=== PATIENT | male | born 1950 | race Two or more races ===

== ENCOUNTER 2019-01-20 15:02 | Inpatient (IN) | payer MEDICARE, OTHER ==
--- NOTE | 2019-01-20 15:12 | PDOC ---
Rapid Medical Evaluation Chief Complaint: Vomiting/Diarrhea Time Seen by Provider: 01/20/19 15:06 Medical Evaluation: Allergies Allergy/AdvReac Type Severity Reaction Status Date / Time No Known Allergies Allergy Verified 01/20/19 15:10 Vital Signs Temp Pulse Resp BP Pulse Ox 98.4 F 89 16 106/59 L 96 01/20/19 15:07 01/20/19 15:07 01/20/19 15:07 01/20/19 15:07 01/20/19 15:07 01/20/19 15:11 I have performed a brief in-person evaluation of this patient. The patient presents with a chief complaint of:abd pain w/ n/v/d x 1 week. H/o HTN, HLD, DM Pertinent physical exam findings:stable and in NAD I have ordered the following:labs The patient will proceed to the ED for further evaluation. Discharge Disposition - Diagnosis Abdominal pain Qualifiers: Abdominal location: unspecified location Qualified Code(s): R10.9 - Unspecified abdominal pain - Discharge Dispostion Condition at time of disposition: Stable - Referrals - Patient Instructions - Post Discharge Activity
[2019-01-20] MEDS ORDERED: LACTATED RINGERS SOLUTION 1000 ML INFUS.BAG IV ONE (15:44)
--- NOTE | 2019-01-20 16:31 | PDOC ---
History of Present Illness - General Chief Complaint: Vomiting/Diarrhea Stated Complaint: VOMITING/ DIRARRHEA Time Seen by Provider: 01/20/19 15:06 History Source: Patient Exam Limitations: No Limitations (refused healthcare interpreter) - History of Present Illness Initial Comments: 01/20/19 16:39 68M with pmh of HTN, HLD, IDDM, depression, asthma, COPD, ?CVA(1980) presenting to [facility] after being referred by his [facility] for diffuse epigastric abd pain similiar to his pain from 12/29/18 in which he was seen at [facility]. On 12/29/18, had CT A/P which showed a possible cecal mass. Complaint of 7d of 9 of 10 severity, diffuse epigastric abd pain, w/a 3d of diarrhea and 10x episodes of NBNB emesis. Endorses appetite but has nausea and/or diarrhea within 30mins after eating a meal. Fatigue [id number]. Last BM was the AM prior to presentation. Has been drinking small glasses of water. Has not eaten anything abnormal. No sick contacts or recent travel. Endorse brief fever 2d prior, 2episodes of melena one month prior, lost 30lbs in the last year with diet and exercise. Denies hematochezia. Never had colonoscopy, has one scheduled with Dr Sanchez on 01/28/19. Did not get his outpt CEA level. Lives alone , has siblings that live nearby. Severity: severe Past History - Travel Traveled outside of the country in the last 30 days: No Close contact w/someone who was outside of country & ill: No - Past Medical History Allergies/Adverse Reactions: Allergies Allergy/AdvReac Type Severity Reaction Status Date / Time No Known Allergies Allergy Verified 01/20/19 15:10 Home Medications: Ambulatory Orders Albuterol 0.083% Nebulizer Lissa [Ventolin 0.083% Nebulizer Soln -] 2 puff IH Q6H 01/20/19 Amlodipine Besylate 10 mg PO DAILY 01/20/19 Citalopram Hydrobromide [Citalopram HBr] 20 mg PO DAILY 01/20/19 Cyanocobalamin [Vitamin B12 -] 1,000 mcg PO DAILY 01/20/19 Fluticasone Prop 0.05% Nasal [Flonase -] 50 spray NS DAILY 01/20/19 Fluticasone/Salmeterol [Advair Hfa 230-21 Mcg Inhaler] 2 inh PO BID 01/20/19 Hydrochlorothiazide 25 mg PO DAILY 01/20/19 Insulin Detemir [Levemir Flextouch] 80 unit SQ HS 01/20/19 Lisinopril [Prinivil -] 40 mg PO DAILY 01/20/19 Loratadine [Claritin] 10 mg PO DAILY 01/20/19 Montelukast Sodium [Singulair] 10 mg PO HS 01/20/19 Quetiapine Fumarate [Seroquel -] 50 mg PO HS 01/20/19 Rosuvastatin Calcium [Crestor] 10 mg PO DAILY 01/20/19 Zolpidem Tartrate [Ambien] 10 mg PO HS 01/20/19 Acetaminophen 2 tab PO BID PRN 01/21/19 Aspirin [Aspirin EC] 81 mg PO DAILY 01/21/19 Docusate Sodium [Colace] 100 mg PO BID 01/21/19 Ketotifen Fumarate 1 drop OP BID 01/21/19 Multivit-Min/Iron/Folic Acid/K [Multi-Day Plus Minerals Tablet] 1 tab PO DAILY 01/21/19 Omeprazole Magnesium [Prilosec Otc] 1 tab PO DAILY 01/21/19 Tiotropium [place] [Spiriva] 1 cap IH DAILY 01/21/19 metFORMIN HCL [Metformin HCl] 1,000 mg PO BIDAC 01/21/19 Cancer: No Cardiac Disorders: No CVA: Yes (1980) COPD: Yes Diabetes: Yes HTN: Yes Hypercholesterolemia: Yes Psychiatric Problems: Yes (depression) - Surgical History Abdominal Surgery: No - Family Disease History Family Disease History: Diabetes: Father, Heart Disease: Mother - Immunization History Immunization Up to Date: No - Suicide/Smoking/Psychosocial Hx Smoking Status: Yes (smoked 55ys(~0.5- 1ppd)) Smoking History: Current every day smoker Have you smoked in the past 12 months: Yes Number of Cigarettes Smoked Daily: 10 Information on smoking cessation initiated: No Hx Alcohol Use: Yes (former heavy drinker, last drink 40ys prior) Drug/Substance Use Hx: Yes (former cocaine, crack. No IVDU) Review of Systems - Review of Systems Able to Perform ROS?: Yes Is the patient limited Trinidadian proficient: No Constitutional: Yes: Fever, Malaise HEENTM: No: Recent change in vision, Double Vision, Difficulty Swallowing Respiratory: No: Cough, Shortness of Breath, Wheezing, Productive cough Cardiac (ROS): No: Chest Pain, Palpitations ABD/GI: Yes: Abdominal Distended, Diarrhea, Nausea, Vomiting. No: Constipated : No: Burning, Dysuria, Frequency Psychiatric: Yes: Depression *Physical Exam - Vital Signs Last Vital Signs Temp Pulse Resp BP Pulse Ox 98.4 F 89 16 106/59 L 96 01/20/19 15:01/20/19 15:01/20/19 15:01/20/19 15:01/20/19 15:07 - Physical Exam General Appearance: Yes: Nourished, Mild Distress, Obese HEENT: negative: Pale Conjunctivae, Scleral Icterus (R), Scleral Icterus (L) Neck: positive: Supple. negative: Tender, Trachea midline Respiratory/Chest: positive: Lungs Clear, Normal Breath Sounds. negative: Chest Tender, Respiratory Distress, Accessory Muscle Use, Labored Respiration, Crackles, Rales, Wheezing Cardiovascular: positive: Regular Rate, S1, S2. negative: Tachycardia Gastrointestinal/Abdominal: positive: Normal Bowel Sounds, Soft, Distended, Tenderness (TTP of epigastrium), Other (tympanic to percussion to upper quadrants). negative: Guarding, Rebound Extremity: positive: Normal Capillary Refill. 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 RLQ LAD. Free fluid in RUQ and Lower Pelvis - patient expressing desire to leave AMA due to desire to pay rent on 01/21; severity of condition was explained and he agreed to stay - Surgery(Dr Salinas) consulted -- will evaluate patient *DC/Admit/Observation/Transfer Diagnosis at time of Disposition: Abdominal pain Qualifiers: Abdominal location: unspecified location Qualified Code(s): R10.9 - Unspecified abdominal pain - Discharge Dispostion Disposition: HOME Condition at time of disposition: Improved - Referrals - Patient Instructions - Post Discharge Activity
[2019-01-20] MEDS ORDERED: ACETAMINOPHEN 1000 MG/100 ML VIAL (NON FORMULARY) IVPB ONE (16:38)
[2019-01-20] MEDS ORDERED: ONDANSETRON 4 MG/2 ML VIAL IVPUSH ONE (16:46)
[2019-01-20] MEDS ORDERED: ACETAMINOPHEN INJECTION 100 ML IVPB ONE (17:04)
[2019-01-20] MEDS ORDERED: ONDANSETRON 4 MG/2 ML VIAL ONE (17:04)
--- NOTE | 2019-01-20 17:10 | PDOC ---
Documentation entered by Blair Mcclellan SCRIBE, acting as scribe for Alma Medina MD. Alma Medina MD: This documentation has been prepared by the Eleuterio huffman Joel, SCRIBE, under my direction and personally reviewed by me in its entirety. I confirm that the documentation accurately reflects all work, treatment, procedures, and medical decision making performed by me. Attending Attestation - Resident Resident Name: John Whitt - ED Attending Attestation I have performed the following: I have examined & evaluated the patient, The case was reviewed & discussed with the resident, I agree w/resident's findings & plan - HPI HPI: 01/20/19 16:31 The patient is a 68 year old male with a significant PMH of HTN, IDDM, COPD, asthma, and hyperlipidemia who presents to the emergency department for evaluation of epigastric abdominal pain for 1 week with nausea, vomiting, and non-bloody diarrhea. The patient states his epigastric pain is aggravated by eating, which he describes as a diffuse sensation that is 9/10 in severity. He reports multiple episodes of vomiting and non-bloody diarrhea over the past week. He reports he has had low appetite and difficulty keeping anything down. He states his last BM was this morning. He reports having an appointment for colonoscopy on 01/28/[address] Sanchez. Of note, old records show the patient had an abdomen/pelvis CT w/o contrast on 12/29/2018 which was suspicious for a cecal mass. Denies fever, chills, chest pain, SOB, palpitation, dizziness, weakness, bladder problems, leg swelling, No sick contacts or travel. No new changes in medications. Allergies: None Past Medical History: as noted above. Social history: Lives with family. No tobacco, ETOH or drug use. Surgical history: None reported. Meds: as documented in EMR PMD: Dr. Lux 01/20/19 16:36 01/20/19 17:53 - Physicial Exam PE: 01/20/19 17:54 Agree with the resident's HPI and PE as documented in the electronic medical record. NAD, well appearing, EOMI, PERRL, MMM, nl conjunctiva, anicteric; neck supple. lungs clear, RRR, abdomen soft protuberant, distended, periumbilical/epigastric TTP, +guarding. Back nontender. SAM x4, no focal neuro deficits. No peripheral edema. normal color for ethnicity, WWP. 01/20/19 22:15 - Medical Decision Making 01/20/19 17:54 See HPI for details. Prior notes reviewed, including admissions, discharges and consultations. Vital signs reviewed, wnl. Vital Signs Temp Pulse Resp BP Pulse Ox 98.4 F 89 16 106/59 L 96 01/20/19 15:07 01/20/19 15:07 01/20/19 15:07 01/20/19 15:07 01/20/19 15:07 DDx abdominal pain: Renal colic, biliary colic, metabolic/electrolyte derangements. GERD, PUD, esophageal spasm, pancreatitis, hepatitis, constipation , colitis, gastroenteritis, cholecystitis, UTI, pyelonephritis, ileus, SBO, medication side effect, hernia, appendicitis, diverticulitis, mesenteric ischemia. msk strain, mesenteric adenitis, psoas abscess. mass, perforation, laboratory results and imaging reviewed, basic labs and lytes wnl, notable for + leukocytosis of 12K and Cr 1.9, no prior LFTs/lipase_normal UA_nitrites, could be infectious, but has been having diarrhea. no urinary sx however, f/u cultures EKG normal sinus rhythm at 58 bpm, no interval abnormalities, narrow QRS, ST and T wave segments and morphology normal. Nonspecific T wave abnormalities ED course -interventions: analgesia, IVF, PO contrast -CT a/p to eval for intra abdominal pathology with known mass and current pain and sx. PO contrast only, no IV given GFR 35 and borderline, risk of nephrotoxicity. - s/o pending CT results, ultimate dispo anticipate admission for cecal mass/abdominal pain and difficulty paul PO/pain control. 01/20/19 17:58 01/20/19 22:15
[2019-01-20 17:30] LABS: BASO % 0.5 % (0-2.0); HEMATOCRIT 46.2 % (35.4-49); HEMOGLOBIN 15.5 GM/dL (11.7-16.9); LYMPH % 18.2 % (8-40); MCH 33.2 pg (25.7-33.7); MCHC 33.4 g/dl (32.0-35.9); MEAN CELL VOLUME 99.3 fl (80-96); MEAN PLT VOLUME 9.8 fl (7.5-11.1); MONO % 7.3 % (3.8-10.2); PLATELET COUNT 303 K/MM3 (134-434); RBC 4.65 M/mm3 (4.00-5.60); RDW 13.9 % (11.9-15.9); WHITE BLOOD COUNT 12.4 K/mm3 (4.0-10.0)
[2019-01-20 17:45] LABS: ALBUMIN 3.8 g/dl (3.4-5.0); BILIRUBIN,TOTAL 0.7 mg/dL (0.2-1); BLOOD UREA NITROGEN 29.8 mg/dL (7-18); CALCIUM 9.8 mg/dL (8.5-10.1); CREATININE 1.9 mg/dL (0.55-1.3); POTASSIUM 4.5 mmol/L (3.5-5.1); TOT PROT 7.4 g/dl (6.4-8.2)
[2019-01-20 17:47] LABS: EPI CELLS 1.3 /HPF (0-5/HPF); HYALINE CASTS 3 /lpf (0-8); URINE APPEARANCE CLOUDY; URINE BACTERIA 0.7 /hpf (NEGATIVE); URINE BILIRUBIN 2+ (NEGATIVE); URINE COLOR DK YELLOW; URINE GLUCOSE (UA) NEGATIVE (NEGATIVE); URINE KETONE 1+ (NEGATIVE); URINE LEUK ESTERASE TRACE (NEGATIVE); URINE NITRITE POSITIVE (NEGATIVE); URINE PROTEIN TRACE (NEGATIVE); URINE RBC 7 /hpf (0-4); URINE WBC 2 /hpf (0-5)
[2019-01-20] MEDS ORDERED: ONDANSETRON 4 MG/2 ML VIAL IVPUSH PRN (19:47)
--- NOTE | 2019-01-20 23:14 | PN ---
Physical Exam: SUBJECTIVE: Patient seen and examined OBJECTIVE: Vital Signs Period Temp Pulse Resp BP Sys/Haywood Pulse Ox Last 24 Hr 98.4 F-101.7 F 89 16 106/59 96 GENERAL: The patient is awake, alert, and fully oriented, in no acute distress. HEAD: Normal with no signs of trauma. EYES: PERRL, extraocular movements intact, sclera anicteric, conjunctiva clear. No ptosis. ENT: Ears normal, nares patent, oropharynx clear without exudates, moist mucous membranes. NECK: Trachea midline, full range of motion, supple. LUNGS: Breath sounds equal, clear to auscultation bilaterally, no wheezes, no crackles, no accessory muscle use. HEART: Regular rate and rhythm, S1, S2 without murmur, rub or gallop. ABDOMEN: Soft, nontender, nondistended, normoactive bowel sounds, no guarding, no rebound, no hepatosplenomegaly, no masses. EXTREMITIES: 2+ pulses, warm, well-perfused, no edema. NEUROLOGICAL: Cranial nerves II through XII grossly intact. Normal speech, gait not observed. PSYCH: Normal mood, normal affect. SKIN: Warm, dry, normal turgor, no rashes or lesions noted Laboratory Results - last 24 hr 01/20/19 01/20/19 01/20/19 16:51 16:57 16:57 WBC 12.4 H RBC 4.65 Hgb 15.5 Hct 46.2 MCV 99.3 H MCH 33.2 MCHC 33.4 RDW 13.9 Plt Count 303 MPV 9.8 Absolute Neuts (auto) 9.0 H Neutrophils % 73.0 Lymphocytes % 18.2 Monocytes % 7.3 Eosinophils % 1.0 Basophils % 0.5 Nucleated RBC % 0 Sodium 135 L Potassium 4.5 Chloride 98 Carbon Dioxide 30 Anion Gap 8 BUN 29.8 H Creatinine 1.9 H Est GFR (CKD-EPI)AfAm 40.78 Est GFR (CKD-EPI)NonAf 35.19 Random Glucose 178 H Calcium 9.8 Total Bilirubin 0.7 AST 17 ALT 15 Alkaline Phosphatase 94 Total Protein 7.4 Albumin 3.8 Lipase 55 L Urine Color Dk yellow Urine Appearance Cloudy Urine pH 5.0 Ur Specific [place] 1.033 Urine Protein Trace Urine Glucose (UA) Negative Urine Ketones 1+ H Urine Blood Negative Urine Nitrite Positive H Urine Bilirubin 2+ H Urine Urobilinogen 1.0 Ur Leukocyte Esterase Trace Urine WBC (Auto) 2 Urine RBC (Auto) 7 Urine Casts (Auto) 3 U Epithel Cells (Auto) 1.3 Urine Bacteria (Auto) 0.7 Active Medications Generic Name Dose Route Start Last Admin Trade Name Freq PRN Reason Stop Dose Admin Sodium Chloride 1,000 mls @ 125 mls/hr 01/20/19 22:15 Normal Saline - IV ASDIR [facility] ASSESSMENT/PLAN: ATTENDING PHYSICIAN STATEMENT I saw and evaluated the patient. I reviewed the resident's note and discussed the case with the resident. I agree with the resident's findings and plan as documented. SUBJECTIVE: OBJECTIVE: ASSESSMENT AND PLAN:
[2019-01-20] MEDS: SODIUM CHLORIDE 1,000 ML IV SCH (23:30)
--- NOTE | 2019-01-21 00:06 | CONSULT ---
Consult Consult Specialty:: General Surgery Referred by:: Shila Whitt Reason for Consultation:: SBO secondary to cecal mass - History of Present Illness Chief Complaint: abdominal pain, n/v, diarrhea, dizziness History of Present Illness: 68yo M with HTN, HLD, DM2, GERD, COPD/asthma, no previous surgeries including no colonoscopy, has had diffuse abdominal pain dating back at least a month. He had seen his PMD in late November (Dr. Lux), who sent him for CT, which showed a cecal mass. He is scheduled for colonoscopy with Dr. Sanchez on Jan 28. For the last week, however, he has had nausea and vomiting, abd bloating, and the generalized abdominal pain; he saw his [facility] psychiatrist, who sent him to the ER for evaluation. He has also lost weight over the last several months, but may have intended to do so (?). He denies recent illness otherwise, fever or chills, but admits to dizziness and headache. He has not been able to eat much recently because of this, either, so has not been taking his insulin as regularly. He has also had diarrhea on and off. In the ER, he is afebrile, with wbc 12, and CT shows the cecal mass but now with associated SBO (dilated loops) with contrast only reaching proximal ileum, with fluid in the rest of the ileum up to the cecum, and little gas and stool in the colon itself. IV contrast was not used, as he is dehydrated as well with elevated BUN/Cr. Surgery was asked to assess. He is only a fair historian, but repeatedly declined a sampler pickup by phone, and seems to have poor insight into the nature of his diagnosis (cecal mass) or its current consequences (SBO). Initially, he wanted to leave [facility], but ultimately decided to stay. He is seen and examined in ER holding. He is concerned about not being able to eat or drink anything, and expresses that "he will " if he cannot do so. I explained that IV fluids and sugar in the IV will sustain him until he can eat again. He reports he had an NGT years ago, when he used to drink, and is ok with having one. His pain comes and goes, and he feels distended. He has a sister who lives nearby, but does not want to call her tonight. He relates that he had the pain before and his doctor gave him some medicine, and the pain went away. He is easily frustrated, and also expressed at one point that he would just as soon as deal with all that surgery and treatment may entail. I spent over an hour discussing his diagnosis with him, the need for surgery to remove the mass and relieve the blockage, and going over the surgical consent, risks and benefits of surgery; also that he would need the NGT until his bowels worked again, and that he might be in the hospital for several days to a week or more, but that I could offer no guarantees. In the end, he agreed to surgery and said, "I trust you." - History Source History Provided By: Patient, Medical Record Limitations to Obtaining History: Poor Historian - Past Medical History Cardio/Vascular: Yes: HTN, Hyperlipdemia Pulmonary: Yes: Asthma, COPD Gastrointestinal: Yes: GERD Psych: Yes: Depression Musculoskeletal: Yes: Osteoarthritis Endocrine: Yes: Diabetes Mellitus - Past Surgical History Past Surgical History: Yes: None. No: Colonoscopy - Alcohol/Substance Use Hx Alcohol Use: Yes (former heavy drinker, last drink 40ys prior) History of Substance Use: reports: None - Smoking History Smoking history: Current every day smoker Have you smoked in the past 12 months: Yes Aproximately how many cigarettes per day: 10 - Social History ADL: Independent Occupation: SSI/retired Home Medications - Allergies Allergies/Adverse Reactions: Allergies Allergy/AdvReac Type Severity Reaction Status Date / Time No Known Allergies Allergy Verified 01/20/19 15:10 - Home Medications Home Medications: Ambulatory Orders Albuterol 0.083% Nebulizer Lissa [Ventolin 0.083% Nebulizer Soln -] 1 neb NEB Q6H 01/20/19 Amlodipine Besylate 10 mg PO DAILY 01/20/19 Citalopram Hydrobromide [Citalopram HBr] 20 mg PO DAILY 01/20/19 Cyanocobalamin [Vitamin B12 -] 1,000 mcg PO DAILY 01/20/19 Fluticasone Prop 0.05% Nasal [Flonase -] 50 spray NS DAILY 01/20/19 Fluticasone/Salmeterol [Advair Hfa 230-21 Mcg Inhaler] 2 inh PO BID 01/20/19 Hydrochlorothiazide 25 mg PO DAILY 01/20/19 Insulin Detemir [Levemir Flextouch] 80 unit SQ HS 01/20/19 Lisinopril [Prinivil -] 40 mg PO DAILY 01/20/19 Loratadine [Claritin] 10 mg PO DAILY 01/20/19 Montelukast Sodium [Singulair] 10 mg PO HS 01/20/19 Omeprazole Magnesium [Prilosec Otc] 20 g PO DAILY 01/20/19 Quetiapine Fumarate [Seroquel -] 50 mg PO HS 01/20/19 Rosuvastatin Calcium [Crestor] 10 mg PO DAILY 01/20/19 Zolpidem Tartrate [Ambien] 10 mg PO DAILY 01/20/19 Aspirin [Aspirin EC] 81 mg PO DAILY 01/21/19 Glipizide [Glipizide Xl] 2.5 mg PO DAILY 01/21/19 metFORMIN HCL [Metformin HCl] 1,000 mg PO BIDAC 01/21/19 Home Medications (free text): pt states his nighttime levemir varies with his sugars - sometimes 80, sometimes 70, sometimes less;. does not take glipizide or metformin every single day as prescribed Family Disease History - Family Disease History Other Family History: denies cancer in family; several family members have committed suicide, had alcohol or drug problems Review of Systems - Review of Systems Constitutional: reports: Unintentional Wgt. Loss (? - pt may have been trying to lose weight but has had weight loss). denies: Chills, Fever Eyes: reports: Other (uses glasses but does not have them with him). denies: Recent Change in Vision HENT: denies: Difficult Swallowing, Throat Pain Neck: denies: Swollen Glands, Tenderness Cardiovascular: reports: Chest Pain (rarely). denies: Palpitations Respiratory: reports: Cough (at times), SOB (sometimes - uses albuterol prn) Gastrointestinal: reports: Abdominal Pain (with hpi), Bloating (with hpi), Diarrhea (with hpi), Nausea (with hpi), Vomiting (with hpi). denies: Constipation Genitourinary: denies: Burning, Dysuria Musculoskeletal: reports: Back Pain (at times), Joint Pain (knees at times) Integumentary: denies: Change in Color, Rash Neurological: reports: Dizziness, Headache (occasional pounding in head). denies: Unsteady Gait Psychiatric: reports: Depression. denies: Anxiety Physical Exam Vital Signs: Vital Signs Temperature 98.6 F 01/20/19 23:25 Pulse Rate 75 01/20/19 23:25 Respiratory Rate 16 01/20/19 23:25 Blood Pressure 126/69 01/20/19 23:25 O2 Sat by Pulse Oximetry (%) 94 L 01/20/19 23:25 Constitutional: Yes: Well Nourished, No Distress, Calm Eyes: Yes: Conjunctiva Clear, EOM Intact HENT: Yes: Atraumatic, Normocephalic Neck: Yes: Supple, Trachea Midline Cardiovascular: Yes: Regular Rate and Rhythm Respiratory: Yes: Regular, CTA Bilaterally. No: Wheezes Gastrointestinal: Yes: Soft, Distention, Hypoactive Bowel Sounds, Tenderness ( mild diffuse). No: Tenderness, Rebound (no rebound or guarding) ...Rectal Exam: Yes: Deferred Renal/: No: CVA Tenderness - Left, CVA Tenderness - Right Musculoskeletal: No: Back Pain (no direct tenderness), Joint Stiffness, Joint Swelling Extremities: No: Cool, Cyanosis Edema: No Peripheral Pulses WNL: Yes Integumentary: Yes: Tattoos. No: Jaundice, Rash Neurological: Yes: Alert, Oriented. No: Unsteady Gait Psychiatric: Yes: Alert, Oriented Labs: CBC, BMP 01/20/19 16:57 01/20/19 16:57 CMP Sodium 135 mmol/L (136-145) L 01/20/19 16:57 Potassium 4.5 mmol/L (3.5-5.1) 01/20/19 16:57 Chloride 98 mmol/L (98-107) 01/20/19 16:57 Carbon Dioxide 30 mmol/L (21-32) 01/20/19 16:57 Anion Gap 8 MMOL/L (8-16) 01/20/19 16:57 BUN 29.8 mg/dL (7-18) H 01/20/19 16:57 Creatinine 1.9 mg/dL (0.55-1.3) H 01/20/19 16:57 Est GFR (CKD-EPI)AfAm 40.78 01/20/19 16:57 Est GFR (CKD-EPI)NonAf 35.19 01/20/19 16:57 Random Glucose 178 mg/dL (74-106) H 01/20/19 16:57 Calcium 9.8 mg/dL (8.5-10.1) 01/20/19 16:57 Total Bilirubin 0.7 mg/dL (0.2-1) 01/20/19 16:57 AST 17 U/L (15-37) 01/20/19 16:57 ALT 15 U/L (13-61) 01/20/19 16:57 Alkaline Phosphatase 94 U/L (45-117) 01/20/19 16:57 Total Protein 7.4 g/dl (6.4-8.2) 01/20/19 16:57 Albumin 3.8 g/dl (3.4-5.0) 01/20/19 16:57 Lipase 55 U/L (73-393) L 01/20/19 16:57 Urine Test Results Urine Color Dk yellow 01/20/19 16:51 Urine Appearance Cloudy 01/20/19 16:51 Urine pH 5.0 (5.0-8.0) 01/20/19 16:51 Ur Specific [place] 1.033 (1.010-1.035) 01/20/19 16:51 Urine Protein Trace (NEGATIVE) 01/20/19 16:51 Urine Glucose (UA) Negative (NEGATIVE) 01/20/19 16:51 Urine Ketones 1+ (NEGATIVE) H 01/20/19 16:51 Urine Blood Negative (NEGATIVE) 01/20/19 16:51 Urine Nitrite Positive (NEGATIVE) H 01/20/19 16:51 Urine Bilirubin 2+ (NEGATIVE) H 01/20/19 16:51 Ur Leukocyte Esterase Trace (NEGATIVE) 01/20/19 16:51 dehydrated by elevated BUN/Cr and urine spec grav/ketones mild leukocytosis, may be secondary to cecal tumor last HbA1C 6.3 late November by paperwork with patient (6's historically) Imaging - Results Cat Scan: Report Reviewed, Image Reviewed (images reviewed - cecal mass at IC valve area, with SBO - dilated, fluid-filled SB proximal to it; remainder of colon relatively decompressed but still with some stool and gas throughout) Problem List - Problems (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 Code(s): D37.4 - NEOPLASM OF UNCERTAIN BEHAVIOR OF COLON (2) Other complete intestinal obstruction Code(s): K56.691 - OTHER COMPLETE INTESTINAL OBSTRUCTION (3) Generalized abdominal pain Code(s): R10.84 - GENERALIZED ABDOMINAL PAIN (4) Nausea and vomiting Code(s): R11.2 - NAUSEA WITH VOMITING, UNSPECIFIED Qualifiers: Vomiting type: unspecified Vomiting Intractability: non-intractable Qualified Code(s): R11.2 - Nausea with vomiting, unspecified (5) Hypertension Code(s): I10 - ESSENTIAL (PRIMARY) HYPERTENSION Qualifiers: Hypertension type: essential hypertension Qualified Code(s): I10 - Essential (primary) hypertension (6) Hyperlipidemia Code(s): E78.5 - HYPERLIPIDEMIA, UNSPECIFIED Qualifiers: Hyperlipidemia type: unspecified Qualified Code(s): E78.5 - Hyperlipidemia , unspecified (7) Diabetes mellitus type 2, controlled, without complications Code(s): E11.9 - TYPE 2 DIABETES MELLITUS WITHOUT COMPLICATIONS Qualifiers: Diabetes mellitus detention insulin use: with exterminator helper termite use Qualified Code( s): E11.9 - Type 2 diabetes mellitus without complications; Z79.4 - terminologist ( current) use of insulin (8) Depression Code(s): F32.9 - MAJOR DEPRESSIVE DISORDER, SINGLE EPISODE, UNSPECIFIED Qualifiers: Depression Type: major depressive disorder Major depression recurrence: unspecified whether recurrent Active/Remission status: remission status unspecified Qualified Code(s): F32.9 - Major depressive disorder, single episode, unspecified Assessment/Plan SBO from cecal mass causing high-grade obstruction most likely cancer, but pt never had colonoscopy (scheduled w/Dr. Sanchez for 01/28) patient with poor insight into diagnosis or treatment needs, but willing to take NGT and have surgery to remove mass admit to medicine preop labs and optimization to be documented STRICT NPO with NGT to be placed and IV fluids FS with SSI coverage pain meds prn - nonnarcotics first line - would use IV tylenol before narcotics GI/DVT prophylaxis continue home inhalers with albuterol nebs prn HOLD aspirin and all po meds consider psych consult - pt did make statements suggesting he would "not want to live" - and is under care at [facility] Discussed with patient risks, benefits and alternatives of exploratory laparotomy, possible bowel resection, probable ileocecectomy, possible ostomy, including but not limited to bleeding, infection, injury to adjacent structures , intestinal leak or injury, intraabdominal abscess, incisional hernia, need for further procedures, ; alternative of no surgery carries risks of bowel perforation, sepsis, . Patient agreeable to proceed with operation tomorrow. Informed consent signed for same. Will discuss timing with OR in am. Pt will need to keep NGT until bowel function resumes postop discussed with Dr. Gutierrez and primary team
[2019-01-21] MEDS ORDERED: ALBUTEROL SO4 0.083% IH SOL 2.5 MG/3 ML VIAL.NEB. NEB SCH (01:15)
--- NOTE | 2019-01-21 02:37 | PN ---
Teaching Attending Note Name of Resident: Tigre Higgins ATTENDING PHYSICIAN STATEMENT I saw and evaluated the patient. I reviewed the resident's note and discussed the case with the resident. I agree with the resident's findings and plan as documented. SUBJECTIVE: This is a 68 year old man with a history of HTN, hyperlipidemia, type 2 DM, asthma/COPD, GERD who comes to the ED complaining of abdominal pain. He has been having pain for about 1 month. He had a CT on December 29 which showed a cecal mass. He is scheduled for a colonoscopy on January 28. The pain started in the epigastric area but has become more diffuse over the past week and is now associated with nausea and vomiting. OBJECTIVE: Vital Signs Period Temp Pulse Resp BP Sys/[place] Pulse Ox Last 24 Hr 97.6 F-101.7 F 66-89 16-18 106-148/59-69 94-96 HEART: S1S2, RRR LUNGS: Clear ABDOMEN: Soft, distended, mild diffuse tenderness, hypoactive BS EXTREMITIES: No edema Laboratory Results - last 24 hr 01/20/19 01/20/19 01/20/19 16:51 16:57 16:57 WBC 12.4 H RBC 4.65 Hgb 15.5 Hct 46.2 MCV 99.3 H MCH 33.2 MCHC 33.4 RDW 13.9 Plt Count 303 MPV 9.8 Absolute Neuts (auto) 9.0 H Neutrophils % 73.0 Lymphocytes % 18.2 Monocytes % 7.3 Eosinophils % 1.0 Basophils % 0.5 Nucleated RBC % 0 Sodium 135 L Potassium 4.5 Chloride 98 Carbon Dioxide 30 Anion Gap 8 BUN 29.8 H Creatinine 1.9 H Est GFR (CKD-EPI)AfAm 40.78 Est GFR (CKD-EPI)NonAf 35.19 Random Glucose 178 H Calcium 9.8 Total Bilirubin 0.7 AST 17 ALT 15 Alkaline Phosphatase 94 Total Protein 7.4 Albumin 3.8 Lipase 55 L Urine Color Dk yellow Urine Appearance Cloudy Urine pH 5.0 Ur Specific [place] 1.033 Urine Protein Trace Urine Glucose (UA) Negative Urine Ketones 1+ H Urine Blood Negative Urine Nitrite Positive H Urine Bilirubin 2+ H Urine Urobilinogen 1.0 Ur Leukocyte Esterase Trace Urine WBC (Auto) 2 Urine RBC (Auto) 7 Urine Casts (Auto) 3 U Epithel Cells (Auto) 1.3 Urine Bacteria (Auto) 0.7 Home Medications Medication Instructions Recorded Albuterol 0.083% Nebulizer Lissa 1 neb NEB Q6H 01/20/19 [Ventolin 0.083% Nebulizer Soln -] Amlodipine Besylate 10 mg PO DAILY 01/20/19 Citalopram Hydrobromide 20 mg PO DAILY 01/20/19 [Citalopram HBr] Cyanocobalamin [Vitamin B12 -] 1,000 mcg PO DAILY 01/20/19 Fluticasone Prop 0.05% Nasal 50 spray NS DAILY 01/20/19 [Flonase -] Fluticasone/Salmeterol [Advair Hfa 2 inh PO BID 01/20/19 230-21 Mcg Inhaler] Hydrochlorothiazide 25 mg PO DAILY 01/20/19 Insulin Detemir [Levemir Flextouch] 80 unit SQ HS 01/20/19 Lisinopril [Prinivil -] 40 mg PO DAILY 01/20/19 Loratadine [Claritin] 10 mg PO DAILY 01/20/19 Montelukast Sodium [Singulair] 10 mg PO HS 01/20/19 Omeprazole Magnesium [Prilosec Otc] 20 g PO DAILY 01/20/19 Quetiapine Fumarate [Seroquel -] 50 mg PO HS 01/20/19 Rosuvastatin Calcium [Crestor] 10 mg PO DAILY 01/20/19 Zolpidem Tartrate [Ambien] 10 mg PO DAILY 01/20/19 Aspirin [Aspirin EC] 81 mg PO DAILY 01/21/19 Glipizide [Glipizide Xl] 2.5 mg PO DAILY 01/21/19 metFORMIN HCL [Metformin HCl] 1,000 mg PO BIDAC 01/21/19 ASSESSMENT AND PLAN: This is a 68 year old man with a history of HTN, hyperlipidemia, type 2 DM, asthma/COPD, GERD, depression who presented to the ED with abdominal pain, nausea, and vomiting. 1. 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 Type 2 DM - Hold glipizide, metformin, Levemir - Fingersticks with Novolog sliding scale 3. HTN - BP currently ok - Hold Norvasc, lisinopril, HCTZ while NPO and monitor BP 4. Hyperlipidemia - Hold Crestor while NPO 5. Asthma/COPD - Continue Advair, albuterol nebs - Hold Singulair while NPO - Pulmonary consult in preparation for surgery 6. GERD - Hold Prilosec while NPO 7. Depression - Hold Seroquel, Celexa while NPO
--- NOTE | 2019-01-21 02:39 | HP ---
CHIEF COMPLAINT: Abdominal pain PCP: HISTORY OF PRESENT ILLNESS: 68 y/o M, PMH of asthma, DM type 2, HTN, Hyperlipidemia, presents to the ED c/o of diffuse abdominal pain of 5 days duration, which worsened yesterday, prompting him to come to the ED, associated with multiple episodes of fatigue, diarrhea, nausea and NBNB vomiting. Pt reports his abdominal pain was initially localized and now is diffuse. Nothing improves or remits the pain. He was unable to keep food down. Vomits after every meal. He had only one bowel movement today in the am. He had previous episodes of melena. He reports weight loss in the last year. Currently pts symptoms have worsened. Denies chills, headaches, dizziness, chest pain, numbness, tingling, hematochezia. ROS is negative. ER course was notable for: (1)CT A/P was done in the ED- confirms cecal mass causing SBO, with enlarged LN (2)Labs drawn (3) Recent Travel: n/a PAST MEDICAL HISTORY: DM type 2, HTN, Hyperlipidemia, asthma, COPD PAST SURGICAL HISTORY: n/a, never had a colonoscopy Dr. Daniel SKINNER- scheduled a colonoscopy for january 2019 Social History: Smoking: half a pack/ day for 55yrs- current smoker Alcohol: Denies (former heavy drinker) Drugs: Denies (former cocaine user) Family History: Mother- Cardiac disease, Father DM Allergies NKDA No Known Allergies Allergy (Verified 01/20/19 15:10) HOME MEDICATIONS: Home Medications Medication Instructions Recorded Albuterol 0.083% Nebulizer Lissa 1 neb NEB Q6H 01/20/19 [Ventolin 0.083% Nebulizer Soln -] Amlodipine Besylate 10 mg PO DAILY 01/20/19 Citalopram Hydrobromide 20 mg PO DAILY 01/20/19 [Citalopram HBr] Cyanocobalamin [Vitamin B12 -] 1,000 mcg PO DAILY 01/20/19 Fluticasone Prop 0.05% Nasal 50 spray NS DAILY 01/20/19 [Flonase -] Fluticasone/Salmeterol [Advair Hfa 2 inh PO BID 01/20/19 230-21 Mcg Inhaler] Hydrochlorothiazide 25 mg PO DAILY 01/20/19 Insulin Detemir [Levemir Flextouch] 80 unit SQ HS 01/20/19 Lisinopril [Prinivil -] 40 mg PO DAILY 01/20/19 Loratadine [Claritin] 10 mg PO DAILY 01/20/19 Montelukast Sodium [Singulair] 10 mg PO HS 01/20/19 Omeprazole Magnesium [Prilosec Otc] 20 g PO DAILY 01/20/19 Quetiapine Fumarate [Seroquel -] 50 mg PO HS 01/20/19 Rosuvastatin Calcium [Crestor] 10 mg PO DAILY 01/20/19 Zolpidem Tartrate [Ambien] 10 mg PO DAILY 01/20/19 Aspirin [Aspirin EC] 81 mg PO DAILY 01/21/19 Glipizide [Glipizide Xl] 2.5 mg PO DAILY 01/21/19 metFORMIN HCL [Metformin HCl] 1,000 mg PO BIDAC 01/21/19 REVIEW OF SYSTEMS CONSTITUTIONAL: Absent: fever, chills, diaphoresis, generalized weakness, loss of appetite, weight change CARDIOVASCULAR: Absent: chest pain, syncope, palpitations, lightheadedness,peripheral edema RESPIRATORY: Absent: cough, shortness of breath, dyspnea with exertion, wheezing, stridor, hemoptysis GASTROINTESTINAL: Admits to abdominal pain, abdominal distension, nausea, vomiting, constipation, diarrhea GENITOURINARY: Absent: dysuria, genital pain NEUROLOGIC: Absent: headache, bladder or bowel incontinence PHYSICAL EXAMINATION Last Vital Signs Temp Pulse Resp BP Pulse Ox 97.6 F 66 18 148/65 94 L 01/21/19 00:30 01/21/19 00:30 01/21/19 00:30 01/21/19 00:30 01/20/19 23:25 GENERAL: Awake, alert, and fully oriented, in no acute distress. EYES: Pupils equal, round and reactive to light, extraocular movements intact, NECK: supple without lymphadenopathy LUNGS: Breath sounds equal, clear to auscultation bilaterally. No wheezes, and no crackles. HEART: Regular rate and rhythm, normal S1 and S2 without murmur, rub or gallop. ABDOMEN: Firm, distended, tender to palpation, mild guarding, BS+ Laboratory Results - last 24 hr CBC, BMP 01/20/19 16:57 01/20/19 16:57 ASSESSMENT/PLAN: 68 y/o M presents to the ED c/o of abdominal pain w/ nausea and vomit of 4 days duration # Small bowl obstruction 2/2 to cecal mass likely malignant Abdominal CT- SBO 2/2 to a focal soft tissue mass in cecum and ileocecal, RLQ mesenteric LN enlarged. Possible surgery planned for tomorrow- Spoke to Dr. Salinas Keep NPO Place NGT Hold Aspirin Started on Fluids- 125 NS Monitor lytes- replace if necessary Monitor White cell count # Asthma Continue Home meds Consult [facility]- Dr. Urena- pre-op management # Type 2 DM Insulin Sliding Scale No PO meds- pt NPO Check with Pharmacy for Insulin dose # HTN Monitor BP off med IV Enalapirlat 1.25mg over 5min q6 given- pharmacy confirmed dosage #DVT ppx Hold Anticoag meds Hold Aspirin On SCDs #CARROLL vs CKD Cre elvated- will call PCP to confirm if chronic or acute- no known baseline cre FEN NPO Dispo: Monitor on med-surg floor, place NGT, likely Surgery tomorrow Visit type - Emergency Visit Emergency Visit: Yes ED Registration Date: 01/20/19 Care time: The patient presented to the Emergency Department on the above date and was hospitalized for further evaluation of their emergent condition. - New Patient This patient is new to me today: Yes Date on this admission: 01/24/19 - Critical Care Critical Care patient: No ATTENDING PHYSICIAN STATEMENT I saw and evaluated the patient. I reviewed the resident's note and discussed the case with the resident. I agree with the resident's findings and plan as documented. SUBJECTIVE: OBJECTIVE: ASSESSMENT AND PLAN:
[2019-01-21] MEDS ORDERED: ALBUTEROL SO4 0.083% IH SOL 2.5 MG/3 ML VIAL.NEB. NEB PRN (02:59)
[2019-01-21] MEDS: INSULIN SLIDING SCALE (NOVOLOG) 1 VIAL SQ SCH ×3 (07:14→16:23)
[2019-01-21 07:31] LABS: BASO % 0.5 % (0-2.0); EOS % 1.9 % (0-4.5); HEMATOCRIT 39.9 % (35.4-49); HEMOGLOBIN 13.6 GM/dL (11.7-16.9); LYMPH % 12.6 % (8-40); MCH 33.8 pg (25.7-33.7); MCHC 34.1 g/dl (32.0-35.9); MEAN PLT VOLUME 9.6 fl (7.5-11.1); PLATELET COUNT 241 K/MM3 (134-434); RBC 4.03 M/mm3 (4.00-5.60); RDW 13.5 % (11.9-15.9); WHITE BLOOD COUNT 10.1 K/mm3 (4.0-10.0)
[2019-01-21 07:42] LABS: INR 1.07 (0.83-1.09); PROTHROMBIN TIME (PATIENT) 12.6 SEC (9.7-13.0)
[2019-01-21 07:50] LABS: ALBUMIN 3.2 g/dl (3.4-5.0); BILIRUBIN,TOTAL 0.7 mg/dL (0.2-1); BLOOD UREA NITROGEN 26.3 mg/dL (7-18); CALCIUM 8.7 mg/dL (8.5-10.1); POTASSIUM 4.4 mmol/L (3.5-5.1); TOT PROT 6.3 g/dl (6.4-8.2)
[2019-01-21] MEDS ORDERED: ENALAPRILAT DIHYDRATE 1.25 MG/1 ML VIAL IVPB SCH (09:00)
[2019-01-21] MEDS ORDERED: PT OWN MED DRAWER 7, Y5N ONE (09:03)
[2019-01-21] MEDS ORDERED: ACETAMINOPHEN 1000 MG/100 ML VIAL (NON FORMULARY) IVPB ONE ×2 (09:54→16:26)
[2019-01-21] MEDS ORDERED: BUDESONIDE/FORMETEROL FUMARATE 160/4.5 mcg INHALER IH SCH (10:00)
[2019-01-21] MEDS ORDERED: PATIENT'S OWN MEDICATION (NON-FORMULARY) (Fluticasone/Salmeterol [Advair Hfa 230-21 Mcg In PO SCH (10:00)
[2019-01-21] MEDS ORDERED: TIOTROPIUM BROMIDE 2.5 MCG (SPIRIVA) RESPIMAT INHALER IH SCH (10:00)
[2019-01-21] MEDS ORDERED: PANTOPRAZOLE SODIUM 40 MG VIAL IVPUSH SCH (10:00)
--- NOTE | 2019-01-21 10:45 | CON.PULM ---
Consult Consult Specialty:: PULMONARY Referred by:: Dr Guerrero Reason for Consultation:: pre-op - History of Present Illness Chief Complaint: abdominal pain History of Present Illness: 68yo male with h/o HTN, DM, hyperlipidemia, COPD, smoker who was admitted with worsening abdominal pain x 5 days. Found to have a small bowel obstruction from a cecal mass on imaging, scheduled for surgery today. He denies shortness of breath, cough or wheezing. He lives alone, does report some dyspnea on exertion. Denies prior hospitalizations for his breathing. He smokes about 1 PPD. 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 - History Source History Provided By: Patient, Medical Record Limitations to Obtaining History: Language Barrier - Past Medical History Cardio/Vascular: Yes: HTN, Hyperlipdemia Pulmonary: Yes: Asthma, COPD Gastrointestinal: Yes: GERD Psych: Yes: Depression Musculoskeletal: Yes: Osteoarthritis Endocrine: Yes: Diabetes Mellitus - Past Surgical History Past Surgical History: Yes: None. No: Colonoscopy - Alcohol/Substance Use Hx Alcohol Use: Yes (former heavy drinker, last drink 40ys prior) History of Substance Use: reports: None - Smoking History Smoking history: Current every day smoker Have you smoked in the past 12 months: Yes Aproximately how many cigarettes per day: 10 - Social History ADL: Independent Occupation: SSI/retired Home Medications - Allergies Allergies/Adverse Reactions: Allergies Allergy/AdvReac Type Severity Reaction Status Date / Time No Known Allergies Allergy Verified 01/20/19 15:10 - Home Medications Home Medications: Ambulatory Orders Albuterol 0.083% Nebulizer Lissa [Ventolin 0.083% Nebulizer Soln -] 1 neb NEB Q6H 01/20/19 Amlodipine Besylate 10 mg PO DAILY 01/20/19 Citalopram Hydrobromide [Citalopram HBr] 20 mg PO DAILY 01/20/19 Cyanocobalamin [Vitamin B12 -] 1,000 mcg PO DAILY 01/20/19 Fluticasone Prop 0.05% Nasal [Flonase -] 50 spray NS DAILY 01/20/19 Fluticasone/Salmeterol [Advair Hfa 230-21 Mcg Inhaler] 2 inh PO BID 01/20/19 Hydrochlorothiazide 25 mg PO DAILY 01/20/19 Insulin Detemir [Levemir Flextouch] 80 unit SQ HS 01/20/19 Lisinopril [Prinivil -] 40 mg PO DAILY 01/20/19 Loratadine [Claritin] 10 mg PO DAILY 01/20/19 Montelukast Sodium [Singulair] 10 mg PO HS 01/20/19 Omeprazole Magnesium [Prilosec Otc] 20 g PO DAILY 01/20/19 Quetiapine Fumarate [Seroquel -] 50 mg PO HS 01/20/19 Rosuvastatin Calcium [Crestor] 10 mg PO DAILY 01/20/19 Zolpidem Tartrate [Ambien] 10 mg PO DAILY 01/20/19 Aspirin [Aspirin EC] 81 mg PO DAILY 01/21/19 Glipizide [Glipizide Xl] 2.5 mg PO DAILY 01/21/19 Tiotropium [place] [Spiriva Respimat] 4 gm IH DAILY 01/21/19 metFORMIN HCL [Metformin HCl] 1,000 mg PO BIDAC 01/21/19 Family Disease History - Family Disease History Other Family History: denies cancer in family; several family members have committed suicide, had alcohol or drug problems Review of Systems - Review of Systems Constitutional: reports: Weakness. denies: Chills, Fever Eyes: denies: Recent Change in Vision HENT: denies: Nasal Congestion, Throat Pain Neck: denies: Stiffness, Tenderness Cardiovascular: denies: Chest Pain, Edema, Palpitations, Shortness of Breath Respiratory: reports: SOB on Exertion. denies: Cough, Wheezing Gastrointestinal: reports: Abdominal Pain Genitourinary: denies: Dysuria, Hematuria Neurological: denies: Dizziness, Headache Endocrine: denies: Unexplained Weight Loss Physical Exam Vital Sings: Vital Signs Temperature 97.6 F 01/21/19 00:30 Pulse Rate 66 01/21/19 00:30 Respiratory Rate 18 01/21/19 02:00 Blood Pressure 148/65 01/21/19 00:30 O2 Sat by Pulse Oximetry (%) 94 L 01/21/19 02:00 Constitutional: Yes: Calm Eyes: Yes: Conjunctiva Clear, EOM Intact HENT: Yes: Atraumatic, Normocephalic Neck: Yes: Supple, Trachea Midline Cardiovascular: Yes: Regular Rate and Rhythm Respiratory: Yes: Diminished (decreased breath sounds at the bases). No: Rales , Rhonchi, Wheezes ...Clubbing: No Gastrointestinal: Yes: Soft, Distention, Tenderness Edema: No Neurological: Yes: Alert, Oriented Labs: CBC, BMP 01/21/19 06:39 01/21/19 06:39 Imaging - Results Chest X-ray: Report Reviewed, Image Reviewed (no infiltrates) Problem List - Problems (1) SBO (small bowel obstruction) Code(s): K56.609 - UNSP INTESTNL OBST, UNSP TO PARTIAL VERSUS COMPLETE OBST (2) Cecum mass Code(s): K63.89 - OTHER SPECIFIED DISEASES OF INTESTINE (3) Hyperlipidemia Code(s): E78.5 - HYPERLIPIDEMIA, UNSPECIFIED Qualifiers: Hyperlipidemia type: unspecified Qualified Code(s): E78.5 - Hyperlipidemia , unspecified (4) Hypertension Code(s): I10 - ESSENTIAL (PRIMARY) HYPERTENSION Qualifiers: Hypertension type: essential hypertension Qualified Code(s): I10 - Essential (primary) hypertension (5) COPD (chronic obstructive pulmonary disease) Code(s): J44.9 - CHRONIC OBSTRUCTIVE PULMONARY DISEASE, UNSPECIFIED Assessment/Plan 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
[2019-01-21] MEDS: ALBUTEROL SO4 0.083% IH SOL 2.5 MG/3 ML VIAL.NEB. NEB SCH ×3 (12:00→20:20)
[2019-01-21] MEDS ORDERED: MIDAZOLAM HCL 2 MG/2 ML SINGLE DOSE VIAL ONE (13:31)
[2019-01-21] MEDS ORDERED: fentaNYL CITRATE 250 MCG/5 ML VIAL ONE ×2 (13:31→15:06)
[2019-01-21] MEDS ORDERED: PROPOFOL 20 ML ONE (13:31)
[2019-01-21] MEDS ORDERED: ROCURONIUM BROMIDE 50 MG/5 ML SYRINGE ONE ×2 (13:31→14:51)
[2019-01-21] MEDS ORDERED: LIDOCAINE HCL/PF 2% SDV 5ML VIAL ONE (13:33)
[2019-01-21] MEDS ORDERED: DEXAMETHASONE SOD PHOSPHATE 4 MG/1 ML VIAL ONE (13:33)
[2019-01-21] MEDS ORDERED: CEFOTETAN DISODIUM 2 GM in DEXTROSE 5%-WATER - 100 ML IVPB ONE (14:00)
--- NOTE | 2019-01-21 14:02 | EKG ---
Test Reason : Blood Pressure : / mmHG Vent. Rate : 058 BPM Atrial Rate : 058 BPM P-R Int : 154 ms QRS Dur : 086 ms QT Int : 434 ms P-R-T Axes : 058 -22 037 degrees QTc Int : 426 ms SINUS BRADYCARDIA WITH SINUS ARRHYTHMIA POSSIBLE ANTERIOR INFARCT , AGE UNDETERMINED ABNORMAL ECG NO PREVIOUS ECGS AVAILABLE Confirmed by ALLIE JONES MD ([id number]) on 01/21/2019 2:02:25 PM Referred By: Confirmed By:ALLIE JONES MD
[2019-01-21] MEDS ORDERED: cefoTEtan DISODIUM 2 GM VIAL (RESTRICTED TO ID) IVPB ONE (14:20)
[2019-01-21] MEDS ORDERED: HYDROmorphone HCl 2 MG/ML VIAL ONE (14:53)
[2019-01-21] MEDS ORDERED: LABETALOL HCL 5 MG/1 ML (100MG/20 ML VIAL) ONE (15:26)
[2019-01-21] MEDS ORDERED: NEOSTIGMINE METHYLSULFATE 0.5 MG/ML - 10 ML MDV ONE (16:23)
[2019-01-21] MEDS ORDERED: GLYCOPYRROLATE 0.2 MG/1 ML VIAL ONE (16:23)
[2019-01-21] MEDS ORDERED: PROMETHAZINE HCL 25 MG/1 ML VIAL IVPB PRN (16:25)
[2019-01-21] MEDS ORDERED: ONDANSETRON 4 MG/2 ML VIAL IVPUSH PRN (16:25)
[2019-01-21] MEDS ORDERED: HYDROmorphone *PCA* 10MG/50ML DISP.SYRIN PCA SCH ×2 (16:30→21:07)
[2019-01-21] MEDS ORDERED: LACTATED RINGERS SOLUTION 1,000 ML IV SCH (16:30)
--- NOTE | 2019-01-21 16:54 | PN ---
Physical Exam: SUBJECTIVE: Patient seen and examined by the bedside. AOx3 OBJECTIVE: Vital Signs Period Temp Pulse Resp BP Sys/[place] Pulse Ox Last 24 Hr 97.6 F-101.7 F 66-79 16-18 126-148/65-74 94-99 GENERAL: The patient is awake, alert, and fully oriented, in pain. HEAD: Normal with no signs of trauma, NG tube placed. EYES: PERRL, extraocular movements intact, sclera anicteric, conjunctiva clear. No ptosis. ENT: Ears normal, nares patent, NG tube placed, moist mucous membranes. NECK: Trachea midline, full range of motion, supple. LUNGS: Breath sounds equal, clear to auscultation bilaterally, no wheezes, no crackles, no accessory muscle use. HEART: Regular rate and rhythm, S1, S2 without murmur, rub or gallop. ABDOMEN: Soft, tender to palpation, distended, no bowel sounds, no guarding, no rebound, no hepatosplenomegaly, no masses. EXTREMITIES: 2+ pulses, warm, well-perfused, no edema. NEUROLOGICAL: Cranial nerves II through XII grossly intact. Normal speech, normal gait. PSYCH: Patient appears upset, not entirely cooperative. Does SKIN: Warm, dry, normal turgor, no rashes or lesions noted Laboratory Results - last 24 hr 01/20/19 01/20/19 01/20/19 16:51 16:57 16:57 WBC 12.4 H RBC 4.65 Hgb 15.5 Hct 46.2 MCV 99.3 H MCH 33.2 MCHC 33.4 RDW 13.9 Plt Count 303 MPV 9.8 Absolute Neuts (auto) 9.0 H Neutrophils % 73.0 Lymphocytes % 18.2 Monocytes % 7.3 Eosinophils % 1.0 Basophils % 0.5 Nucleated RBC % 0 PT with INR INR Sodium 135 L Potassium 4.5 Chloride 98 Carbon Dioxide 30 Anion Gap 8 BUN 29.8 H Creatinine 1.9 H Est GFR (CKD-EPI)AfAm 40.78 Est GFR (CKD-EPI)NonAf 35.19 POC Glucometer Random Glucose 178 H Calcium 9.8 Total Bilirubin 0.7 AST 17 ALT 15 Alkaline Phosphatase 94 Total Protein 7.4 Albumin 3.8 Lipase 55 L Urine Color Dk yellow Urine Appearance Cloudy Urine pH 5.0 Ur Specific [place] 1.033 Urine Protein Trace Urine Glucose (UA) Negative Urine Ketones 1+ H Urine Blood Negative Urine Nitrite Positive H Urine Bilirubin 2+ H Urine Urobilinogen 1.0 Ur Leukocyte Esterase Trace Urine WBC (Auto) 2 Urine RBC (Auto) 7 Urine Casts (Auto) 3 U Epithel Cells (Auto) 1.3 Urine Bacteria (Auto) 0.7 Blood Type Antibody Screen 01/21/19 01/21/19 01/21/19 05:56 06:39 06:39 WBC 10.1 H RBC 4.03 Hgb 13.6 Hct 39.9 MCV 99.0 H MCH 33.8 H MCHC 34.1 RDW 13.5 Plt Count 241 D MPV 9.6 Absolute Neuts (auto) 7.7 Neutrophils % 76.0 Lymphocytes % 12.6 D Monocytes % 9.0 Eosinophils % 1.9 D Basophils % 0.5 Nucleated RBC % 0 PT with INR 12.60 INR 1.07 Sodium Potassium Chloride Carbon Dioxide Anion Gap BUN Creatinine Est GFR (CKD-EPI)AfAm Est GFR (CKD-EPI)NonAf POC Glucometer 157 Random Glucose Calcium Total Bilirubin AST ALT Alkaline Phosphatase Total Protein Albumin Lipase Urine Color Urine Appearance Urine pH Ur Specific [place] Urine Protein Urine Glucose (UA) Urine Ketones Urine Blood Urine Nitrite Urine Bilirubin Urine Urobilinogen Ur Leukocyte Esterase Urine WBC (Auto) Urine RBC (Auto) Urine Casts (Auto) U Epithel Cells (Auto) Urine Bacteria (Auto) Blood Type Antibody Screen 01/21/19 01/21/19 01/21/19 06:39 06:39 09:30 WBC RBC Hgb Hct MCV MCH MCHC RDW Plt Count MPV Absolute Neuts (auto) Neutrophils % Lymphocytes % Monocytes % Eosinophils % Basophils % Nucleated RBC % PT with INR INR Sodium 138 Potassium 4.4 Chloride 99 Carbon Dioxide 32 Anion Gap 7 L BUN 26.3 H Creatinine 1.0 Est GFR (CKD-EPI)AfAm 88.61 Est GFR (CKD-EPI)NonAf 76.45 POC Glucometer Random Glucose 146 H Calcium 8.7 Total Bilirubin 0.7 AST 15 ALT 16 Alkaline Phosphatase 84 Total Protein 6.3 L Albumin 3.2 L Lipase Urine Color Urine Appearance Urine pH Ur Specific [place] Urine Protein Urine Glucose (UA) Urine Ketones Urine Blood Urine Nitrite Urine Bilirubin Urine Urobilinogen Ur Leukocyte Esterase Urine WBC (Auto) Urine RBC (Auto) Urine Casts (Auto) U Epithel Cells (Auto) Urine Bacteria (Auto) Blood Type O POSITIVE O POSITIVE Antibody Screen Negative 01/21/19 12:55 WBC RBC Hgb Hct MCV MCH MCHC RDW Plt Count MPV Absolute Neuts (auto) Neutrophils % Lymphocytes % Monocytes % Eosinophils % Basophils % Nucleated RBC % PT with INR INR Sodium Potassium Chloride Carbon Dioxide Anion Gap BUN Creatinine Est GFR (CKD-EPI)AfAm Est GFR (CKD-EPI)NonAf POC Glucometer 140 Random Glucose Calcium Total Bilirubin AST ALT Alkaline Phosphatase Total Protein Albumin Lipase Urine Color Urine Appearance Urine pH Ur Specific [place] Urine Protein Urine Glucose (UA) Urine Ketones Urine Blood Urine Nitrite Urine Bilirubin Urine Urobilinogen Ur Leukocyte Esterase Urine WBC (Auto) Urine RBC (Auto) Urine Casts (Auto) U Epithel Cells (Auto) Urine Bacteria (Auto) Blood Type Antibody Screen Active Medications Generic Name Dose Route Start Last Admin Trade Name Freq PRN Reason Stop Dose Admin Albuterol Sulfate 1 amp 01/21/19 12:00 01/21/19 15:14 Ventolin 0.083% Nebulizer Soln - NEB Not Given RQID ASIA Budesonide/Formoterol Fumarate 2 puff 01/21/19 10:00 01/21/19 10:14 Symbicort 160/4.5mcg - IH 2 puff BID ASIA Administration Enalaprilat 1.25 mg 01/21/19 15:00 Vasotec Injection - IVPB Q6H-IV ASIA Fentanyl 50 mcg 01/21/19 16:25 Sublimaze Injection - IVPUSH 01/22/19 16:24 [id number] PRN PAIN-PACU ORDER X 4 DOSES ONLY Hydromorphone HCl 10 mg 01/21/19 16:30 Hydromorphone 10 Mg/50 Ml-Ns PROVIDER CONTRACTING CONSULTANT 01/28/19 16:26 PROVIDER CONTRACTING CONSULTANT ASIA Protocol Sodium Chloride 1,000 mls @ 125 mls/hr 01/20/19 22:15 01/20/19 23:30 Normal Saline - IV 125 mls/hr ASDIR ASIA Administration Lactated Ringer's 1,000 mls @ 125 mls/hr 01/21/19 16:30 Lactated Ringers Solution IV ASDIR ASIA Insulin Aspart 0 vial 01/21/19 07:00 01/21/19 16:23 Novolog Vial Sliding Scale - SQ Not Given TIDAC [facility] Protocol Ondansetron HCl 4 mg 01/21/19 16:25 Zofran Injection IVPUSH Q6H PRN NAUSEA AND/OR VOMITING Pantoprazole Sodium 40 mg 01/21/19 10:00 01/21/19 10:11 Protonix Iv IVPUSH 40 mg DAILY ASIA Administration Promethazine HCl 12.5 mg 01/21/19 16:25 Phenergan Injection - IVPB Q6H PRN NAUSEA-FOR RESCUE AFTER 15 MIN Tiotropium [place] 2 puff 01/21/19 10:00 01/21/19 10:15 Spiriva Respimat IH 2 puff DAILY ASIA Administration ASSESSMENT/PLAN: 68 year old male with PMH significant for HTN, hyperlipidemia, type 2 DM, asthma /COPD, GERD, and depression. He presented to the ED with worsening abdominal pain, whic first began in the RLQ 3 weeks ago, and has since transitioned to diffuse abdominal pain. Pt describes it as a squeezing pain, worse on moving to his sides, associated with nausea and NBNB vomiting, and multiple episodes of diarrhea. # SBO secondary to cecal mass - CT abdomen: interval developmen of a small bowel obstruction secondary to a focal soft mass lesion involving cecum and ileocecal valve - NPO, NG, N/S - Surgery consult, currently undergoing surgery # Type 2 DM - Holding home meds (glipizide, metformin, Levemir), placed on Novolog SS # HTN - Monitor BP - Hold home meds while NPO (Norvasc, lisinopril, HCTZ) # Hyperlipidemia - Holding crestor while NPO # Asthma/COPD - Advair, albuterol nebs to be continued - Holding Singulair while NPO - Pulmonary consult: inhaled bronchodilators # GERD - Holding Prilosec while NPO # Depression - Holding home meds (Seroquel, Celexa) while NPO Visit type - Emergency Visit Emergency Visit: Yes ED Registration Date: 01/20/19 Care time: The patient presented to the Emergency Department on the above date and was hospitalized for further evaluation of their emergent condition. - New Patient This patient is new to me today: No - Critical Care Critical Care patient: No - Discharge Referral Referred to [facility] Med P.C.: No ATTENDING PHYSICIAN STATEMENT I saw and evaluated the patient. I reviewed the resident's note and discussed the case with the resident. I agree with the resident's findings and plan as documented. SUBJECTIVE: OBJECTIVE: ASSESSMENT AND PLAN:
--- NOTE | 2019-01-21 17:13 | OP ---
Operative Note - Note: Operative Date: 01/21/19 Pre-Operative Diagnosis: small bowel obstruction secondary to cecal mass Operation: ileocecectomy Findings: cecal mass with dilated, fluid-filled small bowel, local lymphadenopathy, no palpable liver lesions, NG in good position; terminal ileum to hepatic flexure resected, primary stapled anastomosis performed, there was some spillage of bowel content - irrigated copiously, suctioned clear Post-Operative Diagnosis: Same as Pre-op Surgeon: Abiel Salinas Motor Coach Driver: Altaf Delvalle Anesthesiologist/RESOURCE ROOM TEACHER: Marcus Bender (w/Drs. Mathur & Edgar) Anesthesia: General Specimens Removed: terminal ileum/appendix/cecum/portion of right colon to pathology, staple line added to specimen Estimated Blood Loss (mls): 50 Drains & Tubes with Location: NGT (from preop); Hatch catheter Drains, Volume Out (mls): 300 (UOP) Fluid Volume Replaced (mls): 2,000 (crystalloid) Operative Report Dictated: Yes
[2019-01-21] MEDS ORDERED: HYDROmorphone *PCA* 10MG/50ML DISP.SYRIN ONE (17:14)
[2019-01-21] MEDS ORDERED: ACETAMINOPHEN INJECTION 100 ML IVPB ONE (17:14)
--- NOTE | 2019-01-21 17:17 | PN ---
Teaching Attending Note Name of Resident: Elias Ohara ATTENDING PHYSICIAN STATEMENT I saw and evaluated the patient. I reviewed the resident's note and discussed the case with the resident. I agree with the resident's findings and plan as documented. SUBJECTIVE: Patient on NG-tube OBJECTIVE: Vital Signs Temperature 98.1 F 01/21/19 08:56 Pulse Rate 79 01/21/19 08:56 Respiratory Rate 18 01/21/19 14:00 Blood Pressure 140/74 01/21/19 08:56 O2 Sat by Pulse Oximetry (%) 99 01/21/19 14:00 GENERAL: The patient is awake, alert, and fully oriented, in no acute distress. HEAD: Normal with no signs of trauma. EYES: PERRL, extraocular movements intact, sclera anicteric, conjunctiva clear. ENT: Ears normal, oropharynx clear without exudates, moist mucous membranes. NECK: Trachea midline, full range of motion, supple. LUNGS: Breath sounds equal, clear to auscultation bilaterally, no wheezes, no crackles, no accessory muscle use. HEART: Regular rate and rhythm, S1, S2 without murmur, rub or gallop. ABDOMEN: positive for NG tube . EXTREMITIES: 2+ pulses, warm, well-perfused, no edema. NEUROLOGICAL: Cranial nerves II through XII grossly intact. Normal speech, gait not observed. PSYCH: Normal mood, normal affect. SKIN: Warm, dry, normal turgor, no rashes or lesions noted CBCD WBC 10.1 K/mm3 (4.0-10.0) H 01/21/19 06:39 RBC 4.03 M/mm3 (4.00-5.60) 01/21/19 06:39 Hgb 13.6 GM/dL (11.7-16.9) 01/21/19 06:39 Hct 39.9 % (35.4-49) 01/21/19 06:39 MCV 99.0 fl (80-96) H 01/21/19 06:39 MCHC 34.1 g/dl (32.0-35.9) 01/21/19 06:39 RDW 13.5 % (11.9-15.9) 01/21/19 06:39 Plt Count 241 K/MM3 (134-434) D 01/21/19 06:39 MPV 9.6 fl (7.5-11.1) 01/21/19 06:39 CMP Sodium 138 mmol/L (136-145) 01/21/19 06:39 Potassium 4.4 mmol/L (3.5-5.1) 01/21/19 06:39 Chloride 99 mmol/L (98-107) 01/21/19 06:39 Carbon Dioxide 32 mmol/L (21-32) 01/21/19 06:39 Anion Gap 7 MMOL/L (8-16) L 01/21/19 06:39 BUN 26.3 mg/dL (7-18) H 01/21/19 06:39 Creatinine 1.0 mg/dL (0.55-1.3) 01/21/19 06:39 Random Glucose 146 mg/dL (74-106) H 01/21/19 06:39 Calcium 8.7 mg/dL (8.5-10.1) 01/21/19 06:39 Total Bilirubin 0.7 mg/dL (0.2-1) 01/21/19 06:39 AST 15 U/L (15-37) 01/21/19 06:39 ALT 16 U/L (13-61) 01/21/19 06:39 Alkaline Phosphatase 84 U/L (45-117) 01/21/19 06:39 Total Protein 6.3 g/dl (6.4-8.2) L 01/21/19 06:39 Albumin 3.2 g/dl (3.4-5.0) L 01/21/19 06:39 Current Medications Generic Name Dose Route Start Last Admin Trade Name Kevinq PRN Reason Stop Dose Admin Albuterol Sulfate 1 amp 01/21/19 12:00 01/21/19 15:14 Ventolin 0.083% Nebulizer Soln - NEB Not Given RQID ASIA Budesonide/Formoterol Fumarate 2 puff 01/21/19 10:00 01/21/19 10:14 Symbicort 160/4.5mcg - IH 2 puff BID ASIA Administration Enalaprilat 1.25 mg 01/21/19 15:00 Vasotec Injection - IVPB Q6H-IV ASIA Fentanyl 50 mcg 01/21/19 16:25 Sublimaze Injection - IVPUSH 01/22/19 16:24 [id number] PRN PAIN-PACU ORDER X 4 DOSES ONLY Hydromorphone HCl 10 mg 01/21/19 16:30 Hydromorphone 10 Mg/50 Ml-Ns MANAGER DIVISION 01/28/19 16:26 MANAGER DIVISION [facility] Protocol Sodium Chloride 1,000 mls @ 125 mls/hr 01/20/19 22:15 01/20/19 23:30 Normal Saline - IV 125 mls/hr ASDIR ASIA Administration Lactated Ringer's 1,000 mls @ 125 mls/hr 01/21/19 16:30 Lactated Ringers Solution IV ASDIR ASIA Insulin Aspart 0 vial 01/21/19 07:00 01/21/19 16:23 Novolog Vial Sliding Scale - SQ Not Given TIDAC [facility] Protocol Ondansetron HCl 4 mg 01/21/19 16:25 Zofran Injection IVPUSH Q6H PRN NAUSEA AND/OR VOMITING Pantoprazole Sodium 40 mg 01/21/19 10:00 01/21/19 10:11 Protonix Iv IVPUSH 40 mg DAILY [facility] Administration Promethazine HCl 12.5 mg 01/21/19 16:25 Phenergan Injection - IVPB Q6H PRN NAUSEA-FOR RESCUE AFTER 15 MIN Tiotropium [place] 2 puff 01/21/19 10:00 01/21/19 10:15 Spiriva Respimat IH 2 puff DAILY [facility] Administration Home Medications Medication Instructions Recorded Albuterol 0.083% Nebulizer Lissa 2 puff IH Q6H 01/20/19 [Ventolin 0.083% Nebulizer Soln -] Amlodipine Besylate 10 mg PO DAILY 01/20/19 Citalopram Hydrobromide 20 mg PO DAILY 01/20/19 [Citalopram HBr] Cyanocobalamin [Vitamin B12 -] 1,000 mcg PO DAILY 01/20/19 Fluticasone Prop 0.05% Nasal 50 spray NS DAILY 01/20/19 [Flonase -] Fluticasone/Salmeterol [Advair Hfa 2 inh PO BID 01/20/19 230-21 Mcg Inhaler] Hydrochlorothiazide 25 mg PO DAILY 01/20/19 Insulin Detemir [Levemir Flextouch] 80 unit SQ HS 01/20/19 Lisinopril [Prinivil -] 40 mg PO DAILY 01/20/19 Loratadine [Claritin] 10 mg PO DAILY 01/20/19 Montelukast Sodium [Singulair] 10 mg PO HS 01/20/19 Quetiapine Fumarate [Seroquel -] 50 mg PO HS 01/20/19 Rosuvastatin Calcium [Crestor] 10 mg PO DAILY 01/20/19 Zolpidem Tartrate [Ambien] 10 mg PO HS 01/20/19 Acetaminophen 2 tab PO BID PRN 01/21/19 Aspirin [Aspirin EC] 81 mg PO DAILY 01/21/19 Docusate Sodium [Colace] 100 mg PO BID 01/21/19 Ketotifen Fumarate 1 drop OP BID 01/21/19 Multivit-Min/Iron/Folic Acid/K 1 tab PO DAILY 01/21/19 [Multi-Day Plus Minerals Tablet] Omeprazole Magnesium [Prilosec Otc] 1 tab PO DAILY 01/21/19 Tiotropium [place] [Spiriva] 1 cap IH DAILY 01/21/19 metFORMIN HCL [Metformin HCl] 1,000 mg PO BIDAC 01/21/19 ASSESSMENT AND PLAN: This is a 68 year old man with a history of HTN, hyperlipidemia, type 2 DM, asthma/COPD, GERD, depression who presented to the ED with abdominal pain, nausea, and vomiting. # small bowel obstruction secondary to cecal mass, panfilo't rule out malignancy for surgery by for ileocecectomy # Type 2 DM: Hold glipizide, metformin, Levemir, SS with coverage # HTN: Hold Norvasc, lisinopril, HCTZ while NPO and monitor BP # Hyperlipidemia: Hold Crestor while NPO # Asthma/COPD: Continue Advair, albuterol nebs; Hold Singulair while NPO, Pulmonary consult for surgical clearance # GERD: Hold Prilosec while NPO # Depression: Hold Seroquel, Celexa while NPO DVT PX: SCDs
[2019-01-21] MEDS: SODIUM CHLORIDE 1,000 ML IV SCH ×2 (17:55→22:10)
[2019-01-21] MEDS ORDERED: DEXTROSE 5%-WATER 100 ML IVPB ONE (20:51)
[2019-01-21] MEDS ORDERED: PIPERACILLIN/TAZOBACTAM 4.5 GM VIAL IVPB ONE (20:51)
[2019-01-21] MEDS ORDERED: hydrALAZINE HCL 20 MG/ML VIAL IVPUSH PRN (21:07)
[2019-01-21] MEDS ORDERED: PIPERACILLIN/TAZOB 4.5 GM 4.5 GM in DEXTROSE 5%-WATER 100 ML IVPB SCH ×2 (21:30→22:00)
[2019-01-21] MEDS: BUDESONIDE/FORMETEROL FUMARATE 160/4.5 mcg INHALER IH SCH (22:12)
[2019-01-21] MEDS ORDERED: ACETAMINOPHEN 1000 MG/100 ML VIAL (NON FORMULARY) IVPB SCH (23:00)
[2019-01-21] MEDS: ACETAMINOPHEN 1000 MG/100 ML VIAL (NON FORMULARY) IVPB SCH (23:03)
[2019-01-22] MEDS: SODIUM CHLORIDE 1,000 ML IV SCH (01:54)
[2019-01-22] MEDS ORDERED: DEXTROSE 5%-WATER 100 ML IVPB ONE ×3 (02:21→18:33)
[2019-01-22] MEDS ORDERED: PIPERACILLIN/TAZOBACTAM 4.5 GM VIAL IVPB ONE ×3 (02:21→18:32)
[2019-01-22] MEDS: PIPERACILLIN/TAZOB 4.5 GM 4.5 GM in DEXTROSE 5%-WATER 100 ML IVPB SCH ×3 (03:49→18:36)
[2019-01-22] MEDS: ACETAMINOPHEN 1000 MG/100 ML VIAL (NON FORMULARY) IVPB SCH ×4 (05:41→22:57)
[2019-01-22] MEDS ORDERED: INSULIN SLIDING SCALE (NOVOLOG) 1 VIAL SQ SCH (07:00)
[2019-01-22] MEDS: ALBUTEROL SO4 0.083% IH SOL 2.5 MG/3 ML VIAL.NEB. NEB SCH ×4 (08:26→20:39)
--- NOTE | 2019-01-22 08:29 | PN ---
HC Provider Note Provider Note: Anesthesia Post op Note Pt seen s/p GA for ex-lap ileocecectomy Pt awake alert in bed -- comfortable good pain control on VAULT PERSON Pt denies n/v, puritis, no SOB with NG and gleason in place VSS no apparent anesthesia complications continue VAULT PERSON [place].
--- NOTE | 2019-01-22 08:50 | PN ---
Progress Note (short form) - Note Progress Note: PULMONARY s/p ex-lap/ileocecectomy. Confused this AM but denies abdominal pain, shortness of breath or chest pain. Vital Signs Period Temp Pulse Resp BP Sys/[place] Pulse Ox Last 24 Hr 98 F-99.4 F 69-90 10-20 96-161/53-87 98-100 Gen: NAD in chair but confused Heart: RRR Lung: decreased breath sounds at the bases Abd: soft, dressings intact Ext: no edema CBC, BMP 01/21/19 06:39 01/21/19 06:39 Active Medications Acetaminophen (Ofirmev Injection -) 1,000 mg IVPB Q6H ASIA Last Admin: 01/22/19 05:41 Dose: 1,000 mg Albuterol Sulfate (Ventolin 0.083% Nebulizer Soln -) 1 amp NEB RQID [facility] Last Admin: 01/22/19 08:26 Dose: Not Given Budesonide/Formoterol Fumarate (Symbicort 160/4.5mcg -) 2 puff IH BID [facility] Last Admin: 01/21/19 22:12 Dose: 2 puff Enoxaparin Sodium (Lovenox -) 40 mg SQ DAILY ASIA Hydralazine HCl (Apresoline Injection -) 10 mg IVPUSH Q8H PRN PRN Reason: HYPERTENSION Hydromorphone HCl (Hydromorphone 10 Mg/50 Ml-Ns) 10 mg ELECTRIC VEHICLE ELECTRICIAN ELECTRIC VEHICLE ELECTRICIAN ASIA; Protocol Stop: 01/28/19 16:26 Sodium Chloride (Normal Saline -) 1,000 mls @ 125 mls/hr IV ASDIR [facility] Last Admin: 01/22/19 01:54 Dose: 125 mls/hr Piperacillin Sod/Tazobactam (Sod 4.5 gm/ Dextrose) 100 mls @ 200 mls/hr IVPB Q8H-IV ASIA; Protocol Last Admin: 01/22/19 03:49 Dose: 200 mls/hr Insulin Aspart (Novolog Vial Sliding Scale -) 1 vial SQ TIDAC ASIA; Protocol Ondansetron HCl (Zofran Injection) 4 mg IVPUSH Q6H PRN PRN Reason: NAUSEA AND/OR VOMITING Pantoprazole Sodium (Protonix Iv) 40 mg IVPUSH DAILY [facility] Tiotropium [place] (Spiriva Respimat) 2 puff IH DAILY ASIA A/P 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 s/p ex-lap/ileocecectomy COPD HTN DM Hyperlipidemia Smoker - continue antibiotics - inhaled bronchodilators - O2 to keep Spo2 >90% - pain control - incentive spirometry - outpt PFTs - smoking cessation - DVT prophylaxis Problem List - Problems (1) SBO (small bowel obstruction) Code(s): K56.609 - UNSP INTESTNL OBST, UNSP TO PARTIAL VERSUS COMPLETE OBST (2) Cecum mass Code(s): K63.89 - OTHER SPECIFIED DISEASES OF INTESTINE (3) Hyperlipidemia Code(s): E78.5 - HYPERLIPIDEMIA, UNSPECIFIED Qualifiers: Hyperlipidemia type: unspecified Qualified Code(s): E78.5 - Hyperlipidemia , unspecified (4) Hypertension Code(s): I10 - ESSENTIAL (PRIMARY) HYPERTENSION Qualifiers: Hypertension type: essential hypertension Qualified Code(s): I10 - Essential (primary) hypertension (5) COPD (chronic obstructive pulmonary disease) Code(s): J44.9 - CHRONIC OBSTRUCTIVE PULMONARY DISEASE, UNSPECIFIED
[2019-01-22] MEDS ORDERED: TIOTROPIUM BROMIDE IH SCH (10:00)
[2019-01-22] MEDS ORDERED: TIOTROPIUM BROMIDE 2.5 MCG (SPIRIVA) RESPIMAT INHALER IH SCH (10:00)
[2019-01-22] MEDS ORDERED: ENOXAPARIN NA (PORCINE) 40 MG/0.4 ML DISP.SYRIN SQ SCH (10:00)
--- NOTE | 2019-01-22 10:36 | PN ---
Progress Note (short form) - Note Progress Note: ID consult dictated imp/reccd 68 yo man admitted with nausea vomiting abdominal pain found to have SBO secondary to cecal mass he is pod #1 s/p ileocecectomy- noted in OR to have some fecal spillage received cefotetan intraop but pharmacy has no more cefotetan so he was switched to zosyn suggest continue zosyn postop he is doing well postop incentive spirometry remove gleason if okay with surgery Problem List - Problems (1) SBO (small bowel obstruction) Code(s): K56.609 - UNSP INTESTNL OBST, UNSP TO PARTIAL VERSUS COMPLETE OBST (2) Cecum mass Code(s): K63.89 - OTHER SPECIFIED DISEASES OF INTESTINE
[2019-01-22] MEDS: ENOXAPARIN NA (PORCINE) 40 MG/0.4 ML DISP.SYRIN SQ SCH (11:16)
[2019-01-22] MEDS: PANTOPRAZOLE SODIUM 40 MG VIAL IVPUSH SCH (11:16)
[2019-01-22] MEDS: TIOTROPIUM BROMIDE 2.5 MCG (SPIRIVA) RESPIMAT INHALER IH SCH (11:18)
[2019-01-22] MEDS: BUDESONIDE/FORMETEROL FUMARATE 160/4.5 mcg INHALER IH SCH ×2 (11:18→22:56)
[2019-01-22] MEDS: ENALAPRILAT DIHYDRATE 1.25 MG/1 ML VIAL IVPB SCH (11:20)
[2019-01-22] MEDS ORDERED: hydrALAZINE HCL 20 MG/ML VIAL IVPB PRN (11:25)
[2019-01-22] MEDS: INSULIN SLIDING SCALE (NOVOLOG) 1 VIAL SQ SCH ×3 (12:46→23:03)
--- NOTE | 2019-01-22 14:58 | PN ---
Physical Exam: SUBJECTIVE: Patient seen and examined by the bedside. AOx3 OBJECTIVE: Vital Signs Period Temp Pulse Resp BP Sys/Haywood Pulse Ox Last 24 Hr 98 F-99.4 F 69-90 10-20 96-161/53-87 98-100 GENERAL: The patient is awake, alert, and fully oriented, in pain. HEAD: Normal with no signs of trauma, NG tube placed. EYES: PERRL, extraocular movements intact, sclera anicteric, conjunctiva clear. No ptosis. ENT: Ears normal, nares patent, NG tube placed, moist mucous membranes. NECK: Trachea midline, supple. LUNGS: Breath sounds equal, clear to auscultation bilaterally, no wheezes, no crackles, no accessory muscle use. HEART: Regular rate and rhythm, S1, S2 without murmur, rub or gallop. ABDOMEN: Soft, tender to palpation, hypoactive bowel sounds, no guarding, no rebound, no hepatosplenomegaly, no masses. EXTREMITIES: 2+ pulses, warm, well-perfused, no edema. NEUROLOGICAL: Cranial nerves II through XII grossly intact. Normal speech, normal gait. PSYCH: Patient appears upset and agitated, not entirely cooperative. SKIN: Warm, dry, normal turgor, no rashes or lesions noted Laboratory Results - last 24 hr 01/21/19 01/21/19 01/22/19 06:39 16:58 05:34 POC Glucometer 206 214 Carcinoembryonic Ag 2.9 01/22/19 12:32 POC Glucometer 155 Carcinoembryonic Ag Active Medications Generic Name Dose Route Start Last Admin Trade Name Edwar PRN Reason Stop Dose Admin Acetaminophen 1,000 mg 01/21/19 23:00 01/22/19 11:15 Ofirmev Injection - IVPB 1,000 mg Q6H ASIA Administration Albuterol Sulfate 1 amp 01/22/19 08:00 01/22/19 11:01 Ventolin 0.083% Nebulizer Soln - NEB Not Given RQID ASIA Budesonide/Formoterol Fumarate 2 puff 01/21/19 22:00 01/22/19 11:18 Symbicort 160/4.5mcg - IH 2 puff BID ASIA Administration Enoxaparin Sodium 40 mg 01/22/19 10:00 01/22/19 11:16 Lovenox - SQ 40 mg DAILY ASIA Administration Hydralazine HCl 10 mg 01/22/19 11:25 Apresoline Injection - IVPB Q8H PRN HYPERTENSION Hydromorphone HCl 10 mg 01/21/19 21:07 Hydromorphone 10 Mg/50 Ml-Ns LAND INSPECTOR 01/28/19 16:26 LAND INSPECTOR ASIA Protocol Sodium Chloride 1,000 mls @ 125 mls/hr 01/21/19 21:07 01/22/19 01:54 Normal Saline - IV 125 mls/hr ASDIR ASIA Administration Piperacillin Sod/Tazobactam 100 mls @ 200 mls/hr 01/22/19 02:00 01/22/19 11: 13 Sod 4.5 gm/ Dextrose IVPB 200 mls/hr Q8H-IV ASIA Administration Protocol Insulin Aspart 1 vial 01/22/19 12:00 01/22/19 12:46 Novolog Vial Sliding Scale - SQ Not Given Q6HPO ASIA Protocol Ondansetron HCl 4 mg 01/21/19 21:07 Zofran Injection IVPUSH Q6H PRN NAUSEA AND/OR VOMITING Pantoprazole Sodium 40 mg 01/22/19 10:00 01/22/19 11:16 Protonix Iv IVPUSH 40 mg DAILY ASIA Administration Tiotropium [place] 2 puff 01/22/19 10:00 01/22/19 11:18 Spiriva Respimat IH 2 puff DAILY ASIA Administration ASSESSMENT/PLAN: 68 y/o M, PMH of asthma, type 2 DM, HTN, and HLD. Presented to the ER with diffuse abd pain for 5 days, worsened yesterday. Associated with multiple episodes of diarrhea, nausea and NBNB vomiting. 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 -Surgery: terminal ileum to hepatic flexure/appendix/cecum/portion of right colon resected and sent for histopath, lost 50ml blood, fluid output 300, 2, 000ml of crystalloid, some spillage of bowel content - irrigated copiously, suctioned clear - IV Cefotetan during surgey, pharmacy ran out so Zosyn started 01/22 - Protonix 40mg -Monitor electrolytes -Monitor WBC # Asthma -Continue Home meds, Advair, albuterol nebs to be continued, holding Singulair while NPO -Pulmo: Inhaled bronchodilators, incentive spirometery, outpatient PFTs, smoking cessation #Type 2 DM -Novolog SS -Holding home meds: metformin 1000mg, Levemir 80units -No PO meds (NPO) #HTN -IVPB HCTZ 10mg Q8H -Hold home meds while NPO (Norvasc 10mg, lisinopril 40mg, HCTZ 25mg) # Hyperlipidemia - Holding crestor 10mg while NPO #Hx of psych - Home meds: Seroquel 50mg, Zolpidem 10mg, Citalopram 20mg, #DVT ppx -Hold ASA, AC -Lovenox 40mg #CARROLL vs CKD -Cr elvated, will call PCP to confirm if chronic or acute- no known baseline #FEN -NGT -N/S 125 -NPO #Dispo -Monitor Visit type - Emergency Visit Emergency Visit: Yes ED Registration Date: 01/20/19 Care time: The patient presented to the Emergency Department on the above date and was hospitalized for further evaluation of their emergent condition. - New Patient This patient is new to me today: No - Critical Care Critical Care patient: No - Discharge Referral Referred to [facility] No ATTENDING PHYSICIAN STATEMENT I saw and evaluated the patient. I reviewed the resident's note and discussed the case with the resident. I agree with the resident's findings and plan as documented. SUBJECTIVE: OBJECTIVE: ASSESSMENT AND PLAN:
--- NOTE | 2019-01-22 15:39 | PN ---
Teaching Attending Note Name of Resident: Elias Ohara ATTENDING PHYSICIAN STATEMENT I saw and evaluated the patient. I reviewed the resident's note and discussed the case with the resident. I agree with the resident's findings and plan as documented. SUBJECTIVE: Patient is feeling better with no nausea or vomiting, no shortness of breath. OBJECTIVE: Vital Signs Temperature 98.4 F 01/22/19 12:00 Pulse Rate 84 01/22/19 12:00 Respiratory Rate 16 01/22/19 12:00 Blood Pressure 131/63 01/22/19 12:00 O2 Sat by Pulse Oximetry (%) 99 01/22/19 10:00 GENERAL: The patient is awake, alert, and fully oriented, in no acute distress. HEAD: Normal with no signs of trauma. EYES: PERRL, extraocular movements intact, sclera anicteric, conjunctiva clear. ENT: Ears normal, oropharynx clear without exudates, moist mucous membranes. Positive for NG tube NECK: Trachea midline, full range of motion, supple. LUNGS: Breath sounds equal, clear to auscultation bilaterally, no wheezes, no crackles, no accessory muscle use. HEART: Regular rate and rhythm, S1, S2 without murmur, rub or gallop. ABDOMEN: positive for dressing, no bowel sounds. EXTREMITIES: 2+ pulses, warm, well-perfused, no edema. NEUROLOGICAL: Cranial nerves II through XII grossly intact. Normal speech, gait not observed. PSYCH: Normal mood, normal affect. SKIN: Warm, dry, normal turgor, no rashes or lesions noted : positive for Hatch catheter , draining. CBCD WBC 10.1 K/mm3 (4.0-10.0) H 01/21/19 06:39 RBC 4.03 M/mm3 (4.00-5.60) 01/21/19 06:39 Hgb 13.6 GM/dL (11.7-16.9) 01/21/19 06:39 Hct 39.9 % (35.4-49) 01/21/19 06:39 MCV 99.0 fl (80-96) H 01/21/19 06:39 MCHC 34.1 g/dl (32.0-35.9) 01/21/19 06:39 RDW 13.5 % (11.9-15.9) 01/21/19 06:39 Plt Count 241 K/MM3 (134-434) D 01/21/19 06:39 MPV 9.6 fl (7.5-11.1) 01/21/19 06:39 CMP Sodium 138 mmol/L (136-145) 01/21/19 06:39 Potassium 4.4 mmol/L (3.5-5.1) 01/21/19 06:39 Chloride 99 mmol/L (98-107) 01/21/19 06:39 Carbon Dioxide 32 mmol/L (21-32) 01/21/19 06:39 Anion Gap 7 MMOL/L (8-16) L 01/21/19 06:39 BUN 26.3 mg/dL (7-18) H 01/21/19 06:39 Creatinine 1.0 mg/dL (0.55-1.3) 01/21/19 06:39 Random Glucose 146 mg/dL (74-106) H 01/21/19 06:39 Calcium 8.7 mg/dL (8.5-10.1) 01/21/19 06:39 Total Bilirubin 0.7 mg/dL (0.2-1) 01/21/19 06:39 AST 15 U/L (15-37) 01/21/19 06:39 ALT 16 U/L (13-61) 01/21/19 06:39 Alkaline Phosphatase 84 U/L (45-117) 01/21/19 06:39 Total Protein 6.3 g/dl (6.4-8.2) L 01/21/19 06:39 Albumin 3.2 g/dl (3.4-5.0) L 01/21/19 06:39 Current Medications Generic Name Dose Route Start Last Admin Trade Name Kevinq PRN Reason Stop Dose Admin Acetaminophen 1,000 mg 01/21/19 23:00 01/22/19 11:15 Ofirmev Injection - IVPB 1,000 mg Q6H ASIA Administration Albuterol Sulfate 1 amp 01/22/19 08:00 01/22/19 11:01 Ventolin 0.083% Nebulizer Soln - NEB Not Given RQID ASIA Budesonide/Formoterol Fumarate 2 puff 01/21/19 22:00 01/22/19 11:18 Symbicort 160/4.5mcg - IH 2 puff BID ASIA Administration Enoxaparin Sodium 40 mg 01/22/19 10:00 01/22/19 11:16 Lovenox - SQ 40 mg DAILY ASIA Administration Hydralazine HCl 10 mg 01/22/19 11:25 Apresoline Injection - IVPB Q8H PRN HYPERTENSION Hydromorphone HCl 10 mg 01/21/19 21:07 Hydromorphone 10 Mg/50 Ml-Ns FISHING TOOL TECHNICIAN OIL WELL 01/28/19 16:26 FISHING TOOL TECHNICIAN OIL WELL ASIA Protocol Sodium Chloride 1,000 mls @ 125 mls/hr 01/21/19 21:07 01/22/19 01:54 Normal Saline - IV 125 mls/hr ASDIR ASIA Administration Piperacillin Sod/Tazobactam 100 mls @ 200 mls/hr 01/22/19 02:00 01/22/19 11: 13 Sod 4.5 gm/ Dextrose IVPB 200 mls/hr Q8H-IV ASIA Administration Protocol Insulin Aspart 1 vial 01/22/19 12:00 01/22/19 12:46 Novolog Vial Sliding Scale - SQ Not Given Q6HPO [facility] Protocol Ondansetron HCl 4 mg 01/21/19 21:07 Zofran Injection IVPUSH Q6H PRN NAUSEA AND/OR VOMITING Pantoprazole Sodium 40 mg 01/22/19 10:00 01/22/19 11:16 Protonix Iv IVPUSH 40 mg DAILY ASIA Administration Tiotropium [place] 2 puff 01/22/19 10:00 01/22/19 11:18 Spiriva Respimat IH 2 puff DAILY ASIA Administration Home Medications Medication Instructions Recorded Albuterol 0.083% Nebulizer [place] 2 puff IH Q6H 01/20/19 [Ventolin 0.083% Nebulizer Soln -] Citalopram Hydrobromide 20 mg PO DAILY 01/20/19 [Citalopram HBr] Cyanocobalamin [Vitamin B12 -] 1,000 mcg PO DAILY 01/20/19 Fluticasone Prop 0.05% Nasal 50 spray NS DAILY 01/20/19 [Flonase -] Fluticasone/Salmeterol [Advair Hfa 2 inh PO BID 01/20/19 230-21 Mcg Inhaler] Insulin Detemir [Levemir Flextouch] 80 unit SQ HS 01/20/19 Lisinopril [Prinivil -] 40 mg PO DAILY 01/20/19 Loratadine [Claritin] 10 mg PO DAILY 01/20/19 Montelukast Sodium [Singulair] 10 mg PO HS 01/20/19 Quetiapine Fumarate [Seroquel -] 50 mg PO HS 01/20/19 RX: Amlodipine Besylate 10 mg PO DAILY 01/20/19 RX: Hydrochlorothiazide 25 mg PO DAILY 01/20/19 Rosuvastatin Calcium [Crestor] 10 mg PO DAILY 01/20/19 Zolpidem Tartrate [Ambien] 10 mg PO HS 01/20/19 Aspirin [Aspirin EC] 81 mg PO DAILY 01/21/19 Docusate Sodium [Colace] 100 mg PO BID 01/21/19 Multivit-Min/Iron/Folic Acid/K 1 tab PO DAILY 01/21/19 [Multi-Day Plus Minerals Tablet] Omeprazole Magnesium [Prilosec Otc] 1 tab PO DAILY 01/21/19 RX: Acetaminophen 2 tab PO BID PRN 01/21/19 RX: Ketotifen Fumarate 1 drop OP BID 01/21/19 Tiotropium [place] [Spiriva] 1 cap IH DAILY 01/21/19 metFORMIN HCL [Metformin HCl] 1,000 mg PO BIDAC 01/21/19 Microbiology 01/20/19 16:20 Urine - Urine Clean Catch Urine Culture - Final NO GROWTH OBTAINED ASSESSMENT AND PLAN: This is a 68 year old man with a history of HTN, hyperlipidemia, type 2 DM, asthma/COPD, GERD, depression who presented to the ED with abdominal pain, nausea, and vomiting. # POD#1 Ileocecectomy due to having small bowel obstruction secondary to cecal mass. Terminal ileum/appendix/cecum/portion of right colon was send to pathology. Follow the Bx result. Surgeon Abiel Jones # Type 2 DM: Hold glipizide, metformin, Levemir, SS with coverage # HTN: Hold Norvasc, lisinopril, HCTZ while NPO # Hyperlipidemia: Hold Crestor while NPO # Asthma/COPD: Continue Advair, albuterol nebs; Hold Singulair while NPO, Pulmonary consult for surgical clearance # GERD: Hold Prilosec while NPO # Depression: Hold Seroquel, Celexa while NPO DVT PX: SCDs
--- NOTE | 2019-01-22 16:41 | CONS ---
DATE OF CONSULTATION: DATE OF DICTATION: 01/22/2019 INFECTIOUS DISEASE CONSULTATION HISTORY OF PRESENT ILLNESS: This is a 68-year-old man who was admitted on the with a 3-day history of vomiting and abdominal pain. He was recently found to have a cecal mass. He reports weight loss as well and fatigue. He was sent to the emergency room, where he had a CAT scan which showed a small bowel obstruction with cecal mass and he was admitted for further evaluation. He went to the operating room yesterday, and he had an ileocecectomy with some noted fecal spillage. He received cefotetan intraoperatively and was switched to Zosyn as the hospital is currently out of cefotetan. He is currently awake and alert. He has no fevers or chills. He otherwise feels well. PAST MEDICAL HISTORY: Notable for diabetes, asthma, hypertension, hyperlipidemia. He recently started seeing a psychiatrist. He denies any history of HIV. Denies any , drug use, former alcohol use but does not drink anymore, smokes a half pack a day. FAMILY HISTORY: Notable for coronary artery disease and diabetes. ALLERGIES: No known drug allergies. MEDICATION: At home include albuterol nebulizer, amlodipine, Celexa, vitamin B12, Flonase, Advair, hydrochlorothiazide, insulin, lisinopril, Singulair, Prilosec, Seroquel, Crestor, Ambien, aspirin, metformin, and . REVIEW OF SYSTEMS: Notable for weight loss, abdominal pain, nausea, vomiting, with diarrhea. He also complains of fatigue. PHYSICAL EXAMINATION: GENERAL: He is awake and alert. VITAL SIGNS: Temperature is 98.4, pulse of 84, blood pressure 131/63, respiratory rate 16, he is saturating 99%. HEENT: Normocephalic. Eyes are anicteric. NECK: Supple. LUNGS: Clear to auscultation. HEART: Regular rate and rhythm. ABDOMEN: Soft. He has midline incision. He has a Hatch in place. EXTREMITIES: Without edema. LABORATORY: White count on admission was 12.4, yesterday was 10.1. BUN and creatinine 26 and 1.3. LFTs are normal. Urinalysis has 2 white cells. Urine culture is negative. CAT scan findings as previously stated. Chest x-ray shows no acute chest pathology. IMPRESSION: In summary, this is a 68-year-old man admitted, found to have a cecal mass and small bowel obstruction secondary to cecal mass postoperative day number one. Would suggest continuing Zosyn at this time. He is doing well postoperatively. Would repeat labs in the morning. JB SMITH M.D. [id number]
--- NOTE | 2019-01-22 16:55 | PN ---
Progress Note, Physician Chief Complaint: obstructing cecal mass History of Present Illness: 68 yo male PMH asthma, DM type 2, HTN, Hyperlipidemia presents to the ED c/o of diffuse abdominal pain of 5 days duration, which worsened yesterday, prompting him to come to the ED, associated with multiple episodes of fatigue, diarrhea, nausea and NBNB vomiting. Pt reports his abdominal pain was initially localized and now is diffuse. Nothing improves or remits the pain. He has been stable since ileocecetomy with primary anastomosis - Current Medication List Current Medications: Active Medications Acetaminophen (Ofirmev Injection -) 1,000 mg IVPB Q6H ASIA Last Admin: 01/22/19 11:15 Dose: 1,000 mg Albuterol Sulfate (Ventolin 0.083% Nebulizer Soln -) 1 amp NEB RQID [facility] Last Admin: 01/22/19 15:59 Dose: 1 amp Budesonide/Formoterol Fumarate (Symbicort 160/4.5mcg -) 2 puff IH BID [facility] Last Admin: 01/22/19 11:18 Dose: 2 puff Enoxaparin Sodium (Lovenox -) 40 mg SQ DAILY [facility] Last Admin: 01/22/19 11:16 Dose: 40 mg Hydralazine HCl (Apresoline Injection -) 10 mg IVPB Q8H PRN PRN Reason: HYPERTENSION Hydromorphone HCl (Hydromorphone 10 Mg/50 Ml-Ns) 10 mg CAT BREEDER CAT BREEDER ASIA; Protocol Stop: 01/28/19 16:26 Sodium Chloride (Normal Saline -) 1,000 mls @ 125 mls/hr IV ASDIR [facility] Last Admin: 01/22/19 01:54 Dose: 125 mls/hr Piperacillin Sod/Tazobactam (Sod 4.5 gm/ Dextrose) 100 mls @ 200 mls/hr IVPB Q8H-IV ASIA; Protocol Last Admin: 01/22/19 11:13 Dose: 200 mls/hr Insulin Aspart (Novolog Vial Sliding Scale -) 1 vial SQ Q6HPO [facility]; Protocol Last Admin: 01/22/19 12:46 Dose: Not Given Ondansetron HCl (Zofran Injection) 4 mg IVPUSH Q6H PRN PRN Reason: NAUSEA AND/OR VOMITING Pantoprazole Sodium (Protonix Iv) 40 mg IVPUSH DAILY [facility] Last Admin: 01/22/19 11:16 Dose: 40 mg Tiotropium [place] (Spiriva Respimat) 2 puff IH DAILY [facility] Last Admin: 01/22/19 11:18 Dose: 2 puff - Objective Vital Signs: Vital Signs Temperature 98.4 F 01/22/19 12:00 Pulse Rate 84 01/22/19 12:00 Respiratory Rate 16 01/22/19 12:00 Blood Pressure 131/63 01/22/19 12:00 O2 Sat by Pulse Oximetry (%) 99 01/22/19 10:00 Vital Signs Period Temp Pulse Resp BP Sys/Haywood Pulse Ox Last 24 Hr 98.1 F-99.4 F 82-103 18-22 139-156/57-87 95-96 Constitutional: Yes: Well Nourished, No Distress, Calm Eyes: Yes: WNL, Conjunctiva Clear, EOM Intact HENT: Yes: WNL, Atraumatic, Normocephalic Neck: Yes: WNL, Supple, Trachea Midline Cardiovascular: Yes: WNL, Regular Rate and Rhythm, S1, S2 Respiratory: Yes: Regular, CTA Bilaterally Gastrointestinal: Yes: Soft, Abdomen, Obese, Hypoactive Bowel Sounds, Tenderness (incisional) ...Rectal Exam: Yes: Deferred Genitourinary: No: CVA Tenderness - Left, CVA Tenderness - Right Breast(s): No: Mass, Nipple Inversion Musculoskeletal: No: Muscle Pain, Muscle Weakness Extremities: No: Cool, Cyanosis Edema: No Peripheral Pulses WNL: Yes Peripheral Pulses: Left Radial: 2+, Right Radial: 2+, Left Doralis Pedis: 2+, Right Dorsalis Pedis: 2+, Left Femoral: 2+, Right Femoral: 2+ Integumentary: Yes: Incision Wound/Incision: Yes: Clean/Dry, Well Approximated, Dressing Dry and Intact Neurological: Yes: Alert, Oriented Psychiatric: Yes: Alert, Oriented Labs: CBC, BMP 01/21/19 06:39 01/21/19 06:39 INR, PTT INR 1.07 (0.83-1.09) 01/21/19 06:39 Problem List - Problems (1) Cecum mass Assessment/Plan: 68 yo male MMP POD#1 s/p ileoceetomy with primary anastomosis, for obstruction likely colon cancer, elevated CEA all management decisions per medical team Medical oncology evaluation f/u pathology Strict NPO IVF hydaration NGT to LIWS, should be replaced if removed, until passing flatus trend labs, correct electrolytes. broad spectrum IV antibiotics, given fecal contamination of abdomen will follow Code(s): K63.89 - OTHER SPECIFIED DISEASES OF INTESTINE (2) COPD (chronic obstructive pulmonary disease) Code(s): J44.9 - CHRONIC OBSTRUCTIVE PULMONARY DISEASE, UNSPECIFIED (3) Hyperlipidemia Code(s): E78.5 - HYPERLIPIDEMIA, UNSPECIFIED Qualifiers: Hyperlipidemia type: unspecified Qualified Code(s): E78.5 - Hyperlipidemia , unspecified (4) Hypertension Code(s): I10 - ESSENTIAL (PRIMARY) HYPERTENSION Qualifiers: Hypertension type: essential hypertension Qualified Code(s): I10 - Essential (primary) hypertension (5) SBO (small bowel obstruction) Code(s): K56.609 - UNSP INTESTNL OBST, UNSP TO PARTIAL VERSUS COMPLETE OBST
[2019-01-23] MEDS ORDERED: DEXTROSE 5%-WATER 100 ML IVPB ONE ×3 (01:22→16:43)
[2019-01-23] MEDS ORDERED: PIPERACILLIN/TAZOBACTAM 4.5 GM VIAL IVPB ONE ×3 (01:22→16:43)
[2019-01-23] MEDS: PIPERACILLIN/TAZOB 4.5 GM 4.5 GM in DEXTROSE 5%-WATER 100 ML IVPB SCH ×3 (01:31→17:07)
[2019-01-23] MEDS: ONDANSETRON 4 MG/2 ML VIAL IVPUSH PRN ×2 (02:11→20:59)
[2019-01-23] MEDS ORDERED: LORazepam 2 MG/ML SDV VIAL IVPUSH ONE (03:00)
[2019-01-23] MEDS: ACETAMINOPHEN 1000 MG/100 ML VIAL (NON FORMULARY) IVPB SCH ×4 (05:45→22:08)
[2019-01-23] MEDS: INSULIN SLIDING SCALE (NOVOLOG) 1 VIAL SQ SCH ×3 (06:00→17:03)
[2019-01-23 07:16] LABS: HEMATOCRIT 37.8 % (35.4-49); HEMOGLOBIN 12.7 GM/dL (11.7-16.9); MCH 33.2 pg (25.7-33.7); MCHC 33.7 g/dl (32.0-35.9); MEAN CELL VOLUME 98.5 fl (80-96); MEAN PLT VOLUME 10.5 fl (7.5-11.1); PLATELET COUNT 263 K/MM3 (134-434); RBC 3.84 M/mm3 (4.00-5.60); RDW 13.6 % (11.9-15.9)
[2019-01-23 07:46] LABS: ALBUMIN 2.8 g/dl (3.4-5.0); BILIRUBIN,TOTAL 0.6 mg/dL (0.2-1); CALCIUM 8.7 mg/dL (8.5-10.1); CREATININE 0.7 mg/dL (0.55-1.3); POTASSIUM 3.8 mmol/L (3.5-5.1)
[2019-01-23 08:08] LABS: WHITE BLOOD COUNT 16.3 K/mm3 (4.0-10.0)
[2019-01-23] MEDS: ALBUTEROL SO4 0.083% IH SOL 2.5 MG/3 ML VIAL.NEB. NEB SCH ×4 (08:16→20:26)
[2019-01-23] MEDS: PANTOPRAZOLE SODIUM 40 MG VIAL IVPUSH SCH (09:23)
[2019-01-23] MEDS: ENOXAPARIN NA (PORCINE) 40 MG/0.4 ML DISP.SYRIN SQ SCH (09:23)
[2019-01-23] MEDS: TIOTROPIUM BROMIDE 2.5 MCG (SPIRIVA) RESPIMAT INHALER IH SCH (09:27)
[2019-01-23] MEDS: BUDESONIDE/FORMETEROL FUMARATE 160/4.5 mcg INHALER IH SCH ×2 (09:28→21:01)
[2019-01-23] MEDS ORDERED: SODIUM CHLORIDE 0.45% 1,000 ML IV SCH (12:00)
--- NOTE | 2019-01-23 12:17 | PN ---
Progress Note (short form) - Note Progress Note: PULMONARY Denies abdominal pain, shortness of breath or chest pain. Reports flatus without BM. Vital Signs Period Temp Pulse Resp BP Sys/Haywood Pulse Ox Last 24 Hr 98.1 F-99.4 F 87-103 18-22 139-153/67-87 96-96 Gen: NAD at rest Heart: RRR Lung: decreased breath sounds at the bases Abd: soft, dressings intact Ext: no edema CBC, BMP 01/23/19 05:25 01/23/19 05:25 Active Medications Acetaminophen (Ofirmev Injection -) 1,000 mg IVPB Q6H [facility] Last Admin: 01/23/19 10:36 Dose: 1,000 mg Albuterol Sulfate (Ventolin 0.083% Nebulizer Soln -) 1 amp NEB RQID [facility] Last Admin: 01/23/19 11:56 Dose: Not Given Budesonide/Formoterol Fumarate (Symbicort 160/4.5mcg -) 2 puff IH BID [facility] Last Admin: 01/23/19 09:28 Dose: 2 puff Enoxaparin Sodium (Lovenox -) 40 mg SQ DAILY [facility] Last Admin: 01/23/19 09:23 Dose: 40 mg Hydralazine HCl (Apresoline Injection -) 10 mg IVPB Q8H PRN PRN Reason: HYPERTENSION Piperacillin Sod/Tazobactam (Sod 4.5 gm/ Dextrose) 100 mls @ 200 mls/hr IVPB Q8H-IV [facility]; Protocol Last Admin: 01/23/19 09:23 Dose: 200 mls/hr Sodium Chloride (1/2 Normal Saline) 1,000 mls @ 75 mls/hr IV ASDIR [facility] Stop: 01/24/19 01:19 Last Admin: 01/23/19 12:14 Dose: 75 mls/hr Insulin Aspart (Novolog Vial Sliding Scale -) 1 vial SQ Q6HPO [facility]; Protocol Last Admin: 01/23/19 11:07 Dose: Not Given Ondansetron HCl (Zofran Injection) 4 mg IVPUSH Q6H PRN PRN Reason: NAUSEA AND/OR VOMITING Last Admin: 01/23/19 02:11 Dose: 4 mg Pantoprazole Sodium (Protonix Iv) 40 mg IVPUSH DAILY [facility] Last Admin: 01/23/19 09:23 Dose: 40 mg Tiotropium [place] (Spiriva Respimat) 2 puff IH DAILY [facility] Last Admin: 01/23/19 09:27 Dose: 2 puff A/P 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 s/p ex-lap/ileocecectomy COPD HTN DM Hyperlipidemia Smoker - continue antibiotics - f/u pathology - inhaled bronchodilators - O2 to keep Spo2 >90% - pain control - incentive spirometry - outpt PFTs - smoking cessation - DVT prophylaxis Problem List - Problems (1) SBO (small bowel obstruction) Code(s): K56.609 - UNSP INTESTNL OBST, UNSP TO PARTIAL VERSUS COMPLETE OBST (2) Cecum mass Code(s): K63.89 - OTHER SPECIFIED DISEASES OF INTESTINE (3) Hyperlipidemia Code(s): E78.5 - HYPERLIPIDEMIA, UNSPECIFIED Qualifiers: Hyperlipidemia type: unspecified Qualified Code(s): E78.5 - Hyperlipidemia , unspecified (4) Hypertension Code(s): I10 - ESSENTIAL (PRIMARY) HYPERTENSION Qualifiers: Hypertension type: essential hypertension Qualified Code(s): I10 - Essential (primary) hypertension (5) COPD (chronic obstructive pulmonary disease) Code(s): J44.9 - CHRONIC OBSTRUCTIVE PULMONARY DISEASE, UNSPECIFIED
--- NOTE | 2019-01-23 19:00 | PN ---
Progress Note (short form) - Note Progress Note: Patient is feeling better with no acute distress. oVERNIGHT, patient pulled his NG tube, and wants to eat since he is hungry Vital Signs Temperature 98.7 F 01/23/19 14:45 Pulse Rate 82 01/23/19 14:45 Respiratory Rate 18 01/23/19 14:45 Blood Pressure 143/57 L 01/23/19 14:45 O2 Sat by Pulse Oximetry (%) 95 01/23/19 09:00 GENERAL: The patient is awake, alert, and fully oriented, in no acute distress. HEAD: Normal with no signs of trauma. EYES: PERRL, extraocular movements intact, sclera anicteric, conjunctiva clear. ENT: Ears normal, oropharynx clear without exudates, moist mucous membranes. Positive for NG tube NECK: Trachea midline, full range of motion, supple. LUNGS: Breath sounds equal, clear to auscultation bilaterally, no wheezes, no crackles, no accessory muscle use. HEART: Regular rate and rhythm, S1, S2 without murmur, rub or gallop. ABDOMEN: positive for dressing, no bowel sounds. EXTREMITIES: 2+ pulses, warm, well-perfused, no edema. NEUROLOGICAL: Cranial nerves II through XII grossly intact. Normal speech, gait not observed. PSYCH: Normal mood, normal affect. SKIN: Warm, dry, normal turgor, no rashes or lesions noted WBC 16.3 K/mm3 (4.0-10.0) H 01/23/19 05:25 RBC 3.84 M/mm3 (4.00-5.60) L 01/23/19 05:25 Hgb 12.7 GM/dL (11.7-16.9) 01/23/19 05:25 Hct 37.8 % (35.4-49) 01/23/19 05:25 MCV 98.5 fl (80-96) H 01/23/19 05:25 MCHC 33.7 g/dl (32.0-35.9) 01/23/19 05:25 RDW 13.6 % (11.9-15.9) 01/23/19 05:25 Plt Count 263 K/MM3 (134-434) 01/23/19 05:25 MPV 10.5 fl (7.5-11.1) 01/23/19 05:25 CMP Sodium 139 mmol/L (136-145) 01/23/19 05:25 Potassium 3.8 mmol/L (3.5-5.1) 01/23/19 05:25 Chloride 102 mmol/L (98-107) 01/23/19 05:25 Carbon Dioxide 31 mmol/L (21-32) 01/23/19 05:25 Anion Gap 6 MMOL/L (8-16) L 01/23/19 05:25 BUN 16.0 mg/dL (7-18) 01/23/19 05:25 Creatinine 0.7 mg/dL (0.55-1.3) 01/23/19 05:25 Random Glucose 155 mg/dL (74-106) H 01/23/19 05:25 Calcium 8.7 mg/dL (8.5-10.1) 01/23/19 05:25 Total Bilirubin 0.6 mg/dL (0.2-1) 01/23/19 05:25 AST 24 U/L (15-37) 01/23/19 05:25 ALT 18 U/L (13-61) 01/23/19 05:25 Alkaline Phosphatase 71 U/L (45-117) 01/23/19 05:25 Total Protein 6.0 g/dl (6.4-8.2) L 01/23/19 05:25 Albumin 2.8 g/dl (3.4-5.0) L 01/23/19 05:25 CARDIAC ENZYMES Creatine Kinase 352 U/L (26-308) H 01/22/19 19:40 Troponin I < 0.02 ng/ml (0.00-0.05) 01/22/19 19:40 Current Medications Generic Name Dose Route Start Last Admin Trade Name Kevinq PRN Reason Stop Dose Admin Acetaminophen 1,000 mg 01/21/19 23:00 01/23/19 16:49 Ofirmev Injection - IVPB 1,000 mg Q6H ASIA Administration Albuterol Sulfate 1 amp 01/22/19 08:00 01/23/19 16:30 Ventolin 0.083% Nebulizer Soln - NEB Not Given RQID ASIA Budesonide/Formoterol Fumarate 2 puff 01/21/19 22:00 01/23/19 09:28 Symbicort 160/4.5mcg - IH 2 puff BID ASIA Administration Enoxaparin Sodium 40 mg 01/22/19 10:00 01/23/19 09:23 Lovenox - SQ 40 mg DAILY ASIA Administration Hydralazine HCl 10 mg 01/22/19 11:25 Apresoline Injection - IVPB Q8H PRN HYPERTENSION Piperacillin Sod/Tazobactam 100 mls @ 200 mls/hr 01/22/19 02:00 01/23/19 17: 07 Sod 4.5 gm/ Dextrose IVPB 200 mls/hr Q8H-IV ASIA Administration Protocol Sodium Chloride 1,000 mls @ 75 mls/hr 01/23/19 12:00 01/23/19 12:14 1/2 Normal Saline IV 01/24/19 01:19 75 mls/hr ASDIR ASIA Administration Insulin Aspart 1 vial 01/22/19 12:00 01/23/19 17:03 Novolog Vial Sliding Scale - SQ Not Given Q6HPO ASIA Protocol Ondansetron HCl 4 mg 01/21/19 21:07 01/23/19 02:11 Zofran Injection IVPUSH 4 mg Q6H PRN Administration NAUSEA AND/OR VOMITING Pantoprazole Sodium 40 mg 01/22/19 10:00 01/23/19 09:23 Protonix Iv IVPUSH 40 mg DAILY ASIA Administration Tiotropium [place] 2 puff 01/22/19 10:00 01/23/19 09:27 Spiriva Respimat IH 2 puff DAILY ASIA Administration Home Medications Medication Instructions Recorded Albuterol 0.083% Nebulizer Lissa 2 puff IH Q6H 01/20/19 [Ventolin 0.083% Nebulizer Soln -] Amlodipine Besylate 10 mg PO DAILY 01/20/19 Citalopram Hydrobromide 20 mg PO DAILY 01/20/19 [Citalopram HBr] Cyanocobalamin [Vitamin B12 -] 1,000 mcg PO DAILY 01/20/19 Fluticasone Prop 0.05% Nasal 50 spray NS DAILY 01/20/19 [Flonase -] Fluticasone/Salmeterol [Advair Hfa 2 inh PO BID 01/20/19 230-21 Mcg Inhaler] Hydrochlorothiazide 25 mg PO DAILY 01/20/19 Insulin Detemir [Levemir Flextouch] 80 unit SQ HS 01/20/19 Lisinopril [Prinivil -] 40 mg PO DAILY 01/20/19 Loratadine [Claritin] 10 mg PO DAILY 01/20/19 Montelukast Sodium [Singulair] 10 mg PO HS 01/20/19 Quetiapine Fumarate [Seroquel -] 50 mg PO HS 01/20/19 Rosuvastatin Calcium [Crestor] 10 mg PO DAILY 01/20/19 Zolpidem Tartrate [Ambien] 10 mg PO HS 01/20/19 Acetaminophen 2 tab PO BID PRN 01/21/19 Aspirin [Aspirin EC] 81 mg PO DAILY 01/21/19 Docusate Sodium [Colace] 100 mg PO BID 01/21/19 Ketotifen Fumarate 1 drop OP BID 01/21/19 Multivit-Min/Iron/Folic Acid/K 1 tab PO DAILY 01/21/19 [Multi-Day Plus Minerals Tablet] Omeprazole Magnesium [Prilosec Otc] 1 tab PO DAILY 01/21/19 Tiotropium [place] [Spiriva] 1 cap IH DAILY 01/21/19 metFORMIN HCL [Metformin HCl] 1,000 mg PO BIDAC 01/21/19 01/20/19 16:20 Urine - Urine Clean Catch Urine Culture - Final NO GROWTH OBTAINED ASSESSMENT AND PLAN: This is a 68 year old man with a history of HTN, hyperlipidemia, type 2 DM, asthma/COPD, GERD, depression who presented to the ED with abdominal pain, nausea, and vomiting. 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 Terminal ileum/appendix/cecum/portion of right colon was send to pathology. Follow the Bx result. Surgeon Abiel Jones. Patient pulled the NG tube overnight, needs to continue NPO and place the NG tube back in place since getting distended. ON IV Tylenol , IV zosyn continue, ID on the case. # Type 2 DM: Hold glipizide, metformin, Levemir, SS with coverage # HTN: Hold Norvasc, lisinopril, HCTZ while NPO # Hyperlipidemia: Hold Crestor while NPO # Asthma/COPD: Continue Advair, albuterol nebs; Hold Singulair while NPO, Pulmonary consult for surgical clearance # GERD: on IV Protonix # Depression: Hold Seroquel, Celexa while NPO DVT PX: Lovenox GI Px: Protonix Visit type - Emergency Visit Emergency Visit: Yes ED Registration Date: 01/20/19 Care time: The patient presented to the Emergency Department on the above date and was hospitalized for further evaluation of their emergent condition. - New Patient This patient is new to me today: No - Critical Care Critical Care patient: No - Discharge Referral Referred to [facility] Med P.C.: No
[2019-01-23] MEDS ORDERED: INSULIN (NOVOLOG) ASPART 100 UNITS/ML 10ML VIAL ONE (20:30)
[2019-01-24] MEDS: INSULIN SLIDING SCALE (NOVOLOG) 1 VIAL SQ SCH ×4 (00:04→17:23)
[2019-01-24] MEDS ORDERED: DEXTROSE 5%-WATER 200 ML IVPB ONE (01:50)
[2019-01-24] MEDS ORDERED: PIPERACILLIN/TAZOBACTAM 4.5 GM VIAL IVPB ONE ×4 (01:50→17:19)
[2019-01-24] MEDS: PIPERACILLIN/TAZOB 4.5 GM 4.5 GM in DEXTROSE 5%-WATER 100 ML IVPB SCH ×4 (01:52→17:22)
[2019-01-24] MEDS: MELATONIN 5 MG TABLETS PO PRN ×2 (02:35→23:18)
[2019-01-24] MEDS: ACETAMINOPHEN 1000 MG/100 ML VIAL (NON FORMULARY) IVPB SCH ×4 (05:34→23:18)
[2019-01-24 07:55] LABS: BASO % 0.3 % (0-2.0); HEMATOCRIT 34.9 % (35.4-49); HEMOGLOBIN 11.8 GM/dL (11.7-16.9); LYMPH % 11.2 % (8-40); MCH 33.1 pg (25.7-33.7); MCHC 33.8 g/dl (32.0-35.9); MEAN CELL VOLUME 97.7 fl (80-96); MEAN PLT VOLUME 9.9 fl (7.5-11.1); MONO % 5.7 % (3.8-10.2); NEUT % 80.8 % (42.8-82.8); PLATELET COUNT 233 K/MM3 (134-434); RBC 3.57 M/mm3 (4.00-5.60); RDW 13.1 % (11.9-15.9); WHITE BLOOD COUNT 11.3 K/mm3 (4.0-10.0)
[2019-01-24] MEDS: ALBUTEROL SO4 0.083% IH SOL 2.5 MG/3 ML VIAL.NEB. NEB SCH ×4 (08:00→20:37)
[2019-01-24 08:17] LABS: ALBUMIN 2.4 g/dl (3.4-5.0); BILIRUBIN,TOTAL 1.1 mg/dL (0.2-1); CALCIUM 8.5 mg/dL (8.5-10.1); CREATININE 0.5 mg/dL (0.55-1.3); MAGNESIUM 1.7 mg/dL (1.8-2.4); PHOSPHOROUS 1.7 mg/dL (2.5-4.9); POTASSIUM 3.3 mmol/L (3.5-5.1); TOT PROT 5.6 g/dl (6.4-8.2)
--- NOTE | 2019-01-24 09:09 | PN ---
Teaching Attending Note Name of Resident: Elias Ohara ATTENDING PHYSICIAN STATEMENT I saw and evaluated the patient. I reviewed the resident's note and discussed the case with the resident. I agree with the resident's findings and plan as documented. SUBJECTIVE: Patient's NG tube is draining , continue NPO, patient wants to eat. feels better. OBJECTIVE: Vital Signs Temperature 98.4 F 01/24/19 06:30 Pulse Rate 96 H 01/24/19 06:30 Respiratory Rate 18 01/24/19 06:30 Blood Pressure 134/89 01/24/19 06:30 O2 Sat by Pulse Oximetry (%) 99 01/23/19 21:00 GENERAL: The patient is awake, alert, and fully oriented, in no acute distress. HEAD: Normal with no signs of trauma. EYES: PERRL, extraocular movements intact, sclera anicteric, conjunctiva clear. ENT: Ears normal, oropharynx clear without exudates, moist mucous membranes. Positive for NG tube NECK: Trachea midline, full range of motion, supple. LUNGS: Breath sounds equal, clear to auscultation bilaterally, no wheezes, no crackles, no accessory muscle use. HEART: Regular rate and rhythm, S1, S2 without murmur, rub or gallop. ABDOMEN: positive for dressing, no bowel sounds. EXTREMITIES: 2+ pulses, warm, well-perfused, no edema. NEUROLOGICAL: Cranial nerves II through XII grossly intact. Normal speech, gait not observed. PSYCH: Normal mood, normal affect. SKIN: Warm, dry, normal turgor, no rashes or lesions noted WBC 11.3 K/mm3 (4.0-10.0) H 01/24/19 07:00 RBC 3.57 M/mm3 (4.00-5.60) L 01/24/19 07:00 Hgb 11.8 GM/dL (11.7-16.9) 01/24/19 07:00 Hct 34.9 % (35.4-49) L 01/24/19 07:00 MCV 97.7 fl (80-96) H 01/24/19 07:00 MCHC 33.8 g/dl (32.0-35.9) 01/24/19 07:00 RDW 13.1 % (11.9-15.9) 01/24/19 07:00 Plt Count 233 K/MM3 (134-434) 01/24/19 07:00 MPV 9.9 fl (7.5-11.1) 01/24/19 07:00 CMP Sodium 140 mmol/L (136-145) 01/24/19 07:00 Potassium 3.3 mmol/L (3.5-5.1) L 01/24/19 07:00 Chloride 102 mmol/L (98-107) 01/24/19 07:00 Carbon Dioxide 29 mmol/L (21-32) 01/24/19 07:00 Anion Gap 10 MMOL/L (8-16) 01/24/19 07:00 BUN 8.0 mg/dL (7-18) 01/24/19 07:00 Creatinine 0.5 mg/dL (0.55-1.3) L 01/24/19 07:00 Random Glucose 117 mg/dL (74-106) H 01/24/19 07:00 Calcium 8.5 mg/dL (8.5-10.1) 01/24/19 07:00 Total Bilirubin 1.1 mg/dL (0.2-1) H 01/24/19 07:00 AST 19 U/L (15-37) 01/24/19 07:00 ALT 15 U/L (13-61) 01/24/19 07:00 Alkaline Phosphatase 66 U/L (45-117) 01/24/19 07:00 Total Protein 5.6 g/dl (6.4-8.2) L 01/24/19 07:00 Albumin 2.4 g/dl (3.4-5.0) L 01/24/19 07:00 CARDIAC ENZYMES Creatine Kinase 352 U/L (26-308) H 01/22/19 19:40 Troponin I < 0.02 ng/ml (0.00-0.05) 01/22/19 19:40 Current Medications Generic Name Dose Route Start Last Admin Trade Name Freq PRN Reason Stop Dose Admin Acetaminophen 1,000 mg 01/21/19 23:00 01/24/19 05:34 Ofirmev Injection - IVPB 1,000 mg Q6H ASIA Administration Albuterol Sulfate 1 amp 01/22/19 08:00 01/24/19 08:00 Ventolin 0.083% Nebulizer Soln - NEB Not Given RQID ASIA Budesonide/Formoterol Fumarate 2 puff 01/21/19 22:00 01/23/19 21:01 Symbicort 160/4.5mcg - IH 2 puff BID ASIA Administration Enoxaparin Sodium 40 mg 01/22/19 10:00 01/23/19 09:23 Lovenox - SQ 40 mg DAILY ASIA Administration Hydralazine HCl 10 mg 01/22/19 11:25 Apresoline Injection - IVPB Q8H PRN HYPERTENSION Piperacillin Sod/Tazobactam 100 mls @ 200 mls/hr 01/22/19 02:00 01/24/19 01: 52 Sod 4.5 gm/ Dextrose IVPB 200 mls/hr Q8H-IV ASIA Administration Protocol Insulin Aspart 1 vial 01/22/19 12:00 01/24/19 05:47 Novolog Vial Sliding Scale - SQ Not Given Q6HPO ASIA Protocol Melatonin 5 mg 01/24/19 02:29 Melatonin PO HS PRN INSOMNIA Pantoprazole Sodium 40 mg 01/22/19 10:00 01/23/19 09:23 Protonix Iv IVPUSH 40 mg DAILY ASIA Administration Tiotropium [place] 2 puff 01/22/19 10:00 01/23/19 09:27 Spiriva Respimat IH 2 puff DAILY ASIA Administration Home Medications Medication Instructions Recorded Albuterol 0.083% Nebulizer [place]issa 2 puff IH Q6H 01/20/19 [Ventolin 0.083% Nebulizer Soln -] Amlodipine Besylate 10 mg PO DAILY 01/20/19 Citalopram Hydrobromide 20 mg PO DAILY 01/20/19 [Citalopram HBr] Cyanocobalamin [Vitamin B12 -] 1,000 mcg PO DAILY 01/20/19 Fluticasone Prop 0.05% Nasal 50 spray NS DAILY 01/20/19 [Flonase -] Fluticasone/Salmeterol [Advair Hfa 2 inh PO BID 01/20/19 230-21 Mcg Inhaler] Hydrochlorothiazide 25 mg PO DAILY 01/20/19 Insulin Detemir [Levemir Flextouch] 80 unit SQ HS 01/20/19 Lisinopril [Prinivil -] 40 mg PO DAILY 01/20/19 Loratadine [Claritin] 10 mg PO DAILY 01/20/19 Montelukast Sodium [Singulair] 10 mg PO HS 01/20/19 Quetiapine Fumarate [Seroquel -] 50 mg PO HS 01/20/19 Rosuvastatin Calcium [Crestor] 10 mg PO DAILY 01/20/19 Zolpidem Tartrate [Ambien] 10 mg PO HS 01/20/19 Acetaminophen 2 tab PO BID PRN 01/21/19 Aspirin [Aspirin EC] 81 mg PO DAILY 01/21/19 Docusate Sodium [Colace] 100 mg PO BID 01/21/19 Ketotifen Fumarate 1 drop OP BID 01/21/19 Multivit-Min/Iron/Folic Acid/K 1 tab PO DAILY 01/21/19 [Multi-Day Plus Minerals Tablet] Omeprazole Magnesium [Prilosec Otc] 1 tab PO DAILY 01/21/19 Tiotropium [place] [Spiriva] 1 cap IH DAILY 01/21/19 metFORMIN HCL [Metformin HCl] 1,000 mg PO BIDAC 01/21/19 01/20/19 16:20 Urine - Urine Clean Catch Urine Culture - Final NO GROWTH OBTAINED ASSESSMENT AND PLAN: This is a 68 year old man with a history of HTN, hyperlipidemia, type 2 DM, asthma/COPD, GERD, depression who presented to the ED with abdominal pain, nausea, and vomiting. 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 Terminal ileum/appendix/cecum/portion of right colon was send to pathology. Follow the Bx result. Surgeon Abiel Jones. elevated CEA. All medical decisions by medical team. All surgical decisions as per surgery until patient is stable surgically. Oncology for consult, as per surgery continue NPO, IVF, NG-tube to Low intermediate suctions. Continue IV antibiotics. ID on the case. WBC is trending down. # Hypokalemia added KCL in The IVF # Type 2 DM: Hold glipizide, metformin, Levemir, SS with coverage # HTN: Hold Norvasc, lisinopril, HCTZ while NPO # Hyperlipidemia: Hold Crestor while NPO # Asthma/COPD: Continue Advair, albuterol nebs; Hold Singulair while NPO, Pulmonary on the case # GERD: Hold Prilosec while NPO # Depression: Hold Seroquel, Celexa while NPO DVT PX: Lovenox
[2019-01-24] MEDS ORDERED: DEXTROSE 5%-WATER 100 ML IVPB ONE ×2 (10:01→17:19)
[2019-01-24] MEDS: ENOXAPARIN NA (PORCINE) 40 MG/0.4 ML DISP.SYRIN SQ SCH (10:13)
[2019-01-24] MEDS: PANTOPRAZOLE SODIUM 40 MG VIAL IVPUSH SCH (10:13)
[2019-01-24] MEDS: TIOTROPIUM BROMIDE 2.5 MCG (SPIRIVA) RESPIMAT INHALER IH SCH (10:14)
[2019-01-24] MEDS: BUDESONIDE/FORMETEROL FUMARATE 160/4.5 mcg INHALER IH SCH ×2 (10:14→21:39)
[2019-01-24] MEDS ORDERED: MAGNESIUM SULF 50% (8.12 MEQ/2 ML-1 GM VIAL) IVPB ONE (10:51)
--- NOTE | 2019-01-24 11:32 | PN ---
Physical Exam: SUBJECTIVE: Patient seen and examined by the bedside. AOx3 OBJECTIVE: Vital Signs Period Temp Pulse Resp BP Sys/[place] Pulse Ox Last 24 Hr 98 F-99.2 F 81-96 18-19 134-160/57-89 95-99 GENERAL: The patient is awake, alert, and fully oriented, in pain. HEAD: Normal with no signs of trauma EYES: PERRL, extraocular movements intact, sclera anicteric, conjunctiva clear. No ptosis. ENT: Ears normal, nares patent, NG tube placed, moist mucous membranes. NECK: Trachea midline, supple. LUNGS: Breath sounds equal, clear to auscultation bilaterally, no wheezes, no crackles, no accessory muscle use. HEART: Regular rate and rhythm, S1, S2 without murmur, rub or gallop. ABDOMEN: Soft, tender to palpation, hypoactive bowel sounds, no guarding, no rebound, no hepatosplenomegaly, no masses. EXTREMITIES: 2+ pulses, warm, well-perfused, no edema. NEUROLOGICAL: Cranial nerves II through XII grossly intact. Normal speech, normal gait. PSYCH: Patient appears upset and agitated, not entirely cooperative. SKIN: Warm, dry, normal turgor, no rashes or lesions noted Laboratory Results - last 24 hr 01/23/19 01/23/19 01/23/19 05:25 11:07 16:48 WBC RBC Hgb Hct MCV MCH MCHC RDW Plt Count 263 MPV Absolute Neuts (auto) Neutrophils % Lymphocytes % Monocytes % Eosinophils % Basophils % Nucleated RBC % Sodium Potassium Chloride Carbon Dioxide Anion Gap BUN Creatinine Est GFR (CKD-EPI)AfAm Est GFR (CKD-EPI)NonAf POC Glucometer 172 142 Random Glucose Calcium Phosphorus Magnesium Total Bilirubin AST ALT Alkaline Phosphatase Total Protein Albumin 01/23/19 01/24/19 01/24/19 23:32 05:46 07:00 WBC 11.3 H RBC 3.57 L Hgb 11.8 Hct 34.9 L MCV 97.7 H MCH 33.1 MCHC 33.8 RDW 13.1 Plt Count 233 MPV 9.9 Absolute Neuts (auto) 9.1 H Neutrophils % 80.8 Lymphocytes % 11.2 Monocytes % 5.7 Eosinophils % 2.0 Basophils % 0.3 Nucleated RBC % 0 Sodium Potassium Chloride Carbon Dioxide Anion Gap BUN Creatinine Est GFR (CKD-EPI)AfAm Est GFR (CKD-EPI)NonAf POC Glucometer 127 124 Random Glucose Calcium Phosphorus Magnesium Total Bilirubin AST ALT Alkaline Phosphatase Total Protein Albumin 01/24/19 07:00 WBC RBC Hgb Hct MCV MCH MCHC RDW Plt Count MPV Absolute Neuts (auto) Neutrophils % Lymphocytes % Monocytes % Eosinophils % Basophils % Nucleated RBC % Sodium 140 Potassium 3.3 L Chloride 102 Carbon Dioxide 29 Anion Gap 10 BUN 8.0 Creatinine 0.5 L Est GFR (CKD-EPI)AfAm 128.15 Est GFR (CKD-EPI)NonAf 110.57 POC Glucometer Random Glucose 117 H Calcium 8.5 Phosphorus 1.7 L Magnesium 1.7 L Total Bilirubin 1.1 H AST 19 ALT 15 Alkaline Phosphatase 66 Total Protein 5.6 L Albumin 2.4 L Active Medications Generic Name Dose Route Start Last Admin Trade Name Freq PRN Reason Stop Dose Admin Acetaminophen 1,000 mg 01/21/19 23:00 01/24/19 10:03 Ofirmev Injection - IVPB 1,000 mg Q6H ASIA Administration Albuterol Sulfate 1 amp 01/22/19 08:00 01/24/19 08:00 Ventolin 0.083% Nebulizer Soln - NEB Not Given RQID ASIA Budesonide/Formoterol Fumarate 2 puff 01/21/19 22:00 01/24/19 10:14 Symbicort 160/4.5mcg - IH 2 puff BID ASIA Administration Enoxaparin Sodium 40 mg 01/22/19 10:00 01/24/19 10:13 Lovenox - SQ 40 mg DAILY ASIA Administration Hydralazine HCl 10 mg 01/22/19 11:25 Apresoline Injection - IVPB Q8H PRN HYPERTENSION Piperacillin Sod/Tazobactam 100 mls @ 200 mls/hr 01/22/19 02:00 01/24/19 10: 13 Sod 4.5 gm/ Dextrose IVPB 200 mls/hr Q8H-IV ASIA Administration Protocol Potassium Chloride 40 meq/ 1,020 mls @ 83 mls/hr 01/24/19 11:00 Sodium Chloride IVPB Q12H ASIA Insulin Aspart 1 vial 01/22/19 12:00 01/24/19 05:47 Novolog Vial Sliding Scale - SQ Not Given Q6HPO ASIA Protocol Magnesium Sulfate 2 gm 01/24/19 10:51 Magnesium Sulfate IVPB 01/24/19 10:52 ONCE ONE Melatonin 5 mg 01/24/19 02:29 Melatonin PO HS PRN INSOMNIA Pantoprazole Sodium 40 mg 01/22/19 10:00 01/24/19 10:13 Protonix Iv IVPUSH 40 mg DAILY ASIA Administration Tiotropium [place] 2 puff 01/22/19 10:00 01/24/19 10:14 Spiriva Respimat IH 2 puff DAILY ASIA Administration ASSESSMENT/PLAN: 68 y/o M, PMH of asthma, type 2 DM, HTN, and HLD. Presented to the ER with worsening diffuse abd pain for 5 days. Pain: RLQ, now diffuse, gradual onset, 3 weeks, 9/10, squeezing pain, relieved by lying flat Associated with multiple episodes of diarrhea, nausea and NBNB vomiting. # Small bowl obstruction due to cecal mass - Abdominal CT: SBO secondary to a focal soft tissue mass in cecum and ileocecal , RLQ mesenteric lymph nodes enlarged. - Surgery: terminal ileum to hepatic flexure/appendix/cecum/portion of right colon resected and sent for histopath, some bowel content spillage - IV Cefotetan during surgey, pharmacy ran out so Zosyn started 01/22 - Protonix 40mg - Monitor electrolytes, Mg and K repleted 01/24 - Monitor WBC, trending down # Asthma - Spiriva, Ventolin, Symbicort, holding Singulair while NPO - Pulmo: Inhaled bronchodilators, incentive spirometery, outpatient PFTs, smoking cessation #Type 2 DM - Novolog SS - Holding home meds: metformin 1000mg, Levemir 80units #HTN - IVPB HCTZ 10mg Q8H - Hold home meds while NPO (Norvasc 10mg, lisinopril 40mg, HCTZ 25mg) # Hyperlipidemia - Holding crestor 10mg while NPO #Hx of psych - Home meds: Seroquel 50mg, Zolpidem 10mg, Citalopram 20mg, #CARROLL vs CKD - Cr elvated, will call PCP to confirm if chronic or acute- no known baseline #FEN -NGT -NPO #DVT ppx - Hold ASA, AC - Lovenox 40mg #Dispo -Monitor Visit type - Emergency Visit Emergency Visit: Yes ED Registration Date: 01/20/19 Care time: The patient presented to the Emergency Department on the above date and was hospitalized for further evaluation of their emergent condition. - New Patient This patient is new to me today: No - Critical Care Critical Care patient: No - Discharge Referral Referred to [facility] Med P.C.: No ATTENDING PHYSICIAN STATEMENT I saw and evaluated the patient. I reviewed the resident's note and discussed the case with the resident. I agree with the resident's findings and plan as documented. SUBJECTIVE: OBJECTIVE: ASSESSMENT AND PLAN:
--- NOTE | 2019-01-24 11:43 | PN ---
Progress Note (short form) - Note Progress Note: PULMONARY Denies shortness of breath or chest pain. Some incisional pain today but tolerable. Vital Signs Period Temp Pulse Resp BP Sys/[place] Pulse Ox Last 24 Hr 98 F-99.2 F 81-96 18-19 134-160/57-89 95-99 Gen: NAD at rest Heart: RRR Lung: decreased breath sounds at the bases Abd: soft, dressings intact Ext: no edema CBC, BMP 01/24/19 07:00 01/24/19 07:00 Active Medications Acetaminophen (Ofirmev Injection -) 1,000 mg IVPB Q6H REPLACED BY [facility] Last Admin: 01/24/19 10:03 Dose: 1,000 mg Albuterol Sulfate (Ventolin 0.083% Nebulizer Soln -) 1 amp NEB RQID REPLACED BY [facility] Last Admin: 01/24/19 11:39 Dose: Not Given Budesonide/Formoterol Fumarate (Symbicort 160/4.5mcg -) 2 puff IH BID REPLACED BY [facility] Last Admin: 01/24/19 10:14 Dose: 2 puff Enoxaparin Sodium (Lovenox -) 40 mg SQ DAILY REPLACED BY [facility] Last Admin: 01/24/19 10:13 Dose: 40 mg Hydralazine HCl (Apresoline Injection -) 10 mg IVPB Q8H PRN PRN Reason: HYPERTENSION Piperacillin Sod/Tazobactam (Sod 4.5 gm/ Dextrose) 100 mls @ 200 mls/hr IVPB Q8H-IV ASIA; Protocol Last Admin: 01/24/19 10:13 Dose: 200 mls/hr Potassium Chloride 40 meq/ (Sodium Chloride) 1,020 mls @ 83 mls/hr IVPB Q12H REPLACED BY [facility] Insulin Aspart (Novolog Vial Sliding Scale -) 1 vial SQ Q6HPO REPLACED BY [facility]; Protocol Last Admin: 01/24/19 05:47 Dose: Not Given Melatonin (Melatonin) 5 mg PO HS PRN PRN Reason: INSOMNIA Pantoprazole Sodium (Protonix Iv) 40 mg IVPUSH DAILY REPLACED BY [facility] Last Admin: 01/24/19 10:13 Dose: 40 mg Tiotropium [place] (Spiriva Respimat) 2 puff IH DAILY REPLACED BY [facility] Last Admin: 01/24/19 10:14 Dose: 2 puff A/P 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 s/p ex-lap/ileocecectomy COPD HTN DM Hyperlipidemia Smoker - continue antibiotics - f/u pathology - inhaled bronchodilators - O2 to keep Spo2 >90% - pain control - incentive spirometry - outpt PFTs - smoking cessation - DVT prophylaxis Problem List - Problems (1) SBO (small bowel obstruction) Code(s): K56.609 - UNSP INTESTNL OBST, UNSP TO PARTIAL VERSUS COMPLETE OBST (2) Cecum mass Code(s): K63.89 - OTHER SPECIFIED DISEASES OF INTESTINE (3) Hyperlipidemia Code(s): E78.5 - HYPERLIPIDEMIA, UNSPECIFIED Qualifiers: Hyperlipidemia type: unspecified Qualified Code(s): E78.5 - Hyperlipidemia , unspecified (4) Hypertension Code(s): I10 - ESSENTIAL (PRIMARY) HYPERTENSION Qualifiers: Hypertension type: essential hypertension Qualified Code(s): I10 - Essential (primary) hypertension (5) COPD (chronic obstructive pulmonary disease) Code(s): J44.9 - CHRONIC OBSTRUCTIVE PULMONARY DISEASE, UNSPECIFIED
[2019-01-24] MEDS: POTASSIUM CHLORIDE 40 MEQ in SODIUM CHLORIDE 0.45% 1,000 ML IVPB SCH ×2 (12:08→23:18)
--- NOTE | 2019-01-24 12:18 | PN ---
Progress Note, Physician Chief Complaint: obstructing cecal mass History of Present Illness: 68 yo male PMH asthma, DM type 2, HTN, Hyperlipidemia presents to the ED c/o of diffuse abdominal pain of 5 days duration, which worsened yesterday, prompting him to come to the ED, associated with multiple episodes of fatigue, diarrhea, nausea and NBNB vomiting. Pt reports his abdominal pain was initially localized and now is diffuse. Nothing improves or remits the pain. He has been stable since ileocecetomy with primary anastomosis - Current Medication List Current Medications: Active Medications Acetaminophen (Ofirmev Injection -) 1,000 mg IVPB Q6H ASIA Last Admin: 01/24/19 10:03 Dose: 1,000 mg Albuterol Sulfate (Ventolin 0.083% Nebulizer Soln -) 1 amp NEB RQID ASIA Last Admin: 01/24/19 11:39 Dose: Not Given Budesonide/Formoterol Fumarate (Symbicort 160/4.5mcg -) 2 puff IH BID ASIA Last Admin: 01/24/19 10:14 Dose: 2 puff Enoxaparin Sodium (Lovenox -) 40 mg SQ DAILY ASIA Last Admin: 01/24/19 10:13 Dose: 40 mg Hydralazine HCl (Apresoline Injection -) 10 mg IVPB Q8H PRN PRN Reason: HYPERTENSION Piperacillin Sod/Tazobactam (Sod 4.5 gm/ Dextrose) 100 mls @ 200 mls/hr IVPB Q8H-IV ASIA; Protocol Last Admin: 01/24/19 11:54 Dose: 200 mls/hr Potassium Chloride 40 meq/ (Sodium Chloride) 1,020 mls @ 83 mls/hr IVPB Q12H ASIA Last Admin: 01/24/19 12:08 Dose: 83 mls/hr Insulin Aspart (Novolog Vial Sliding Scale -) 1 vial SQ Q6HPO ASIA; Protocol Last Admin: 01/24/19 05:47 Dose: Not Given Melatonin (Melatonin) 5 mg PO HS PRN PRN Reason: INSOMNIA Pantoprazole Sodium (Protonix Iv) 40 mg IVPUSH DAILY ASIA Last Admin: 01/24/19 10:13 Dose: 40 mg Tiotropium [place] (Spiriva Respimat) 2 puff IH DAILY ASIA Last Admin: 01/24/19 10:14 Dose: 2 puff - Objective Vital Signs: Vital Signs Temperature 99 F 01/24/19 09:26 Pulse Rate 94 H 01/24/19 09:26 Respiratory Rate 18 01/24/19 09:26 Blood Pressure 160/81 01/24/19 09:26 O2 Sat by Pulse Oximetry (%) 95 01/24/19 09:00 Vital Signs Period Temp Pulse Resp BP Sys/Haywood Pulse Ox Last 24 Hr 98 F-99 F 81-96 18- 134-160/57-89 95-99 Intake & Output 01/23/19 01/24/19 01/24/19 23:59 07:59 15:59 Intake Total 850 Output Total 1500 1700 Balance -650 -1700 Intake: IV 450 1/2 Normal Saline 1,000 450 ml @ 75 mls/hr IV ASDIR ASIA Rx#:[id number] IVPB 400 Output: Gastric Drainage 300 350 Urine 1200 1350 Void 1200 1350 Other: Voiding Method Urinal Urinal Urinal Constitutional: Yes: Well Nourished, No Distress, Calm, Obese Eyes: Yes: Conjunctiva Clear, EOM Intact HENT: Yes: Atraumatic, Normocephalic Neck: Yes: Supple, Trachea Midline Cardiovascular: Yes: Regular Rate and Rhythm, S1, S2 Respiratory: Yes: Regular, CTA Bilaterally Gastrointestinal: Yes: Normal Bowel Sounds, Soft, Abdomen, Obese, Tenderness ( incisional) ...Rectal Exam: Yes: Deferred Genitourinary: No: CVA Tenderness - Left, CVA Tenderness - Right Musculoskeletal: No: Muscle Pain, Muscle Weakness Extremities: No: Cool, Cyanosis Edema: No Peripheral Pulses WNL: Yes Peripheral Pulses: Left Radial: 2+, Right Radial: 2+, Left Doralis Pedis: 2+, Right Dorsalis Pedis: 2+, Left Femoral: 2+, Right Femoral: 2+ Integumentary: Yes: Incision Wound/Incision: Yes: Clean/Dry, Dressing Dry and Intact, Draining, Unapproximated (3 5fdM8pr open areas need, packing daily by RN) Neurological: Yes: Alert, Oriented Psychiatric: Yes: Alert, Oriented Labs: CBC, BMP 01/24/19 07:00 01/24/19 07:00 INR, PTT INR 1.07 (0.83-1.09) 01/21/19 06:39 Problem List - Problems (1) Cecum mass Assessment/Plan: 68 yo male MMP POD#3 s/p ileoceetomy with primary anastomosis, for obstruction likely colon cancer, elevated CEA All management decisions per medical team Medical oncology evaluation f/u pathology Strict NPO IVF hydaration NGT to LIWS, should be replaced if removed, until passing flatus Daily Dressing by RN ordered trend labs, correct electrolytes broad spectrum IV antibiotics, given fecal contamination of abdomen will follow Code(s): K63.89 - OTHER SPECIFIED DISEASES OF INTESTINE (2) COPD (chronic obstructive pulmonary disease) Code(s): J44.9 - CHRONIC OBSTRUCTIVE PULMONARY DISEASE, UNSPECIFIED (3) Hyperlipidemia Code(s): E78.5 - HYPERLIPIDEMIA, UNSPECIFIED Qualifiers: Hyperlipidemia type: unspecified Qualified Code(s): E78.5 - Hyperlipidemia , unspecified (4) Hypertension Code(s): I10 - ESSENTIAL (PRIMARY) HYPERTENSION Qualifiers: Hypertension type: essential hypertension Qualified Code(s): I10 - Essential (primary) hypertension (5) SBO (small bowel obstruction) Code(s): K56.609 - UNSP INTESTNL OBST, UNSP TO PARTIAL VERSUS COMPLETE OBST
[2019-01-24] MEDS ORDERED: LIDOCAINE HCL 2% (50ML VIAL) SQ ONE (15:39)
[2019-01-24] MEDS ORDERED: LIDOCAINE 1%/EPI 1:100000 (20 ML MULTI DOSE VIAL) IJ ONE (16:00)
[2019-01-25] MEDS ORDERED: PIPERACILLIN/TAZOBACTAM 4.5 GM VIAL IVPB ONE ×3 (01:42→17:05)
[2019-01-25] MEDS ORDERED: DEXTROSE 5%-WATER 100 ML IVPB ONE ×3 (01:42→17:06)
[2019-01-25] MEDS: INSULIN SLIDING SCALE (NOVOLOG) 1 VIAL SQ SCH ×4 (01:53→17:58)
[2019-01-25] MEDS: PIPERACILLIN/TAZOB 4.5 GM 4.5 GM in DEXTROSE 5%-WATER 100 ML IVPB SCH ×3 (01:58→17:24)
[2019-01-25] MEDS: ACETAMINOPHEN 1000 MG/100 ML VIAL (NON FORMULARY) IVPB SCH ×4 (04:37→22:08)
[2019-01-25] MEDS: ALBUTEROL SO4 0.083% IH SOL 2.5 MG/3 ML VIAL.NEB. NEB SCH ×4 (07:35→20:27)
[2019-01-25 07:38] LABS: ALBUMIN 2.4 g/dl (3.4-5.0); BILIRUBIN,TOTAL 0.5 mg/dL (0.2-1); BLOOD UREA NITROGEN 7.7 mg/dL (7-18); CALCIUM 8.5 mg/dL (8.5-10.1); CREATININE 0.4 mg/dL (0.55-1.3); POTASSIUM 3.6 mmol/L (3.5-5.1); TOT PROT 5.5 g/dl (6.4-8.2)
[2019-01-25 08:28] LABS: BASO % 0.3 % (0-2.0); EOS % 3.9 % (0-4.5); HEMATOCRIT 35.2 % (35.4-49); HEMOGLOBIN 12.1 GM/dL (11.7-16.9); LYMPH % 13.8 % (8-40); MCH 33.5 pg (25.7-33.7); MCHC 34.4 g/dl (32.0-35.9); MEAN CELL VOLUME 97.4 fl (80-96); MEAN PLT VOLUME 9.5 fl (7.5-11.1); MONO % 6.7 % (3.8-10.2); NEUT % 75.3 % (42.8-82.8); PLATELET COUNT 289 K/MM3 (134-434); RBC 3.61 M/mm3 (4.00-5.60); RDW 13.3 % (11.9-15.9)
--- NOTE | 2019-01-25 09:46 | PN ---
Progress Note (short form) - Note Progress Note: Denies shortness of breath or chest pain. Still with some incisional pain. Noted pulled NGT. Intake & Output 01/22/19 01/23/19 01/24/19 01/25/19 23:59 23:59 23:59 23:59 Intake Total 3780 932 0252.5 Output Total 1500 1500 2300 700 Balance 25 -650 -2300 554.5 Last Vital Signs Temp Pulse Resp BP Pulse Ox 98.8 F 81 18 151/72 98 01/25/19 06:06 01/25/19 06:06 01/25/19 06:06 01/25/19 06:06 01/24/19 21:00 Active Medications Acetaminophen (Ofirmev Injection -) 1,000 mg IVPB Q6H ASIA Last Admin: 01/25/19 04:37 Dose: 1,000 mg Albuterol Sulfate (Ventolin 0.083% Nebulizer Soln -) 1 amp NEB RQID ASIA Last Admin: 01/25/19 07:35 Dose: Not Given Budesonide/Formoterol Fumarate (Symbicort 160/4.5mcg -) 2 puff IH BID ASIA Last Admin: 01/24/19 21:39 Dose: 2 puff Enoxaparin Sodium (Lovenox -) 40 mg SQ DAILY ASIA Last Admin: 01/24/19 10:13 Dose: 40 mg Hydralazine HCl (Apresoline Injection -) 10 mg IVPB Q8H PRN PRN Reason: HYPERTENSION Piperacillin Sod/Tazobactam (Sod 4.5 gm/ Dextrose) 100 mls @ 200 mls/hr IVPB Q8H-IV ASIA; Protocol Last Admin: 01/25/19 01:58 Dose: 200 mls/hr Potassium Chloride 40 meq/ (Sodium Chloride) 1,020 mls @ 83 mls/hr IVPB Q12H ASIA Last Admin: 01/24/19 23:18 Dose: 83 mls/hr Insulin Aspart (Novolog Vial Sliding Scale -) 1 vial SQ Q6HPO ASIA; Protocol Last Admin: 01/25/19 06:21 Dose: Not Given Melatonin (Melatonin) 5 mg PO HS PRN PRN Reason: INSOMNIA Last Admin: 01/24/19 23:18 Dose: 5 mg Pantoprazole Sodium (Protonix Iv) 40 mg IVPUSH DAILY [facility] Last Admin: 01/24/19 10:13 Dose: 40 mg Tiotropium [place] (Spiriva Respimat) 2 puff IH DAILY [facility] Last Admin: 01/24/19 10:14 Dose: 2 puff Gen: NAD at rest Heart: RRR Lung: decreased breath sounds at the bases Abd: soft, dressings intact Ext: no edema Laboratory Results - last 24 hr 01/24/19 01/25/19 01/25/19 12:19 01:48 06:06 WBC RBC Hgb Hct MCV MCH MCHC RDW Plt Count MPV Absolute Neuts (auto) Neutrophils % Lymphocytes % Monocytes % Eosinophils % Basophils % Nucleated RBC % Sodium Potassium Chloride Carbon Dioxide Anion Gap BUN Creatinine Est GFR (CKD-EPI)AfAm Est GFR (CKD-EPI)NonAf POC Glucometer 151 124 125 Random Glucose Calcium Total Bilirubin AST ALT Alkaline Phosphatase Total Protein Albumin 01/25/19 01/25/19 06:17 06:17 WBC 10.0 RBC 3.61 L Hgb 12.1 Hct 35.2 L MCV 97.4 H MCH 33.5 MCHC 34.4 RDW 13.3 Plt Count 289 D MPV 9.5 Absolute Neuts (auto) 7.6 Neutrophils % 75.3 Lymphocytes % 13.8 D Monocytes % 6.7 Eosinophils % 3.9 D Basophils % 0.3 Nucleated RBC % 0 Sodium 141 Potassium 3.6 Chloride 102 Carbon Dioxide 28 Anion Gap 11 BUN 7.7 Creatinine 0.4 L Est GFR (CKD-EPI)AfAm 140.46 Est GFR (CKD-EPI)NonAf 121.19 POC Glucometer Random Glucose 127 H Calcium 8.5 Total Bilirubin 0.5 AST 15 ALT 15 Alkaline Phosphatase 60 Total Protein 5.5 L Albumin 2.4 L Problem List - Problems (1) SBO (small bowel obstruction) Code(s): K56.609 - UNSP INTESTNL OBST, UNSP TO PARTIAL VERSUS COMPLETE OBST (2) Cecum mass Code(s): K63.89 - OTHER SPECIFIED DISEASES OF INTESTINE (3) Hyperlipidemia Code(s): E78.5 - HYPERLIPIDEMIA, UNSPECIFIED Qualifiers: Hyperlipidemia type: unspecified Qualified Code(s): E78.5 - Hyperlipidemia , unspecified (4) Hypertension Code(s): I10 - ESSENTIAL (PRIMARY) HYPERTENSION Qualifiers: Hypertension type: essential hypertension Qualified Code(s): I10 - Essential (primary) hypertension (5) COPD (chronic obstructive pulmonary disease) Code(s): J44.9 - CHRONIC OBSTRUCTIVE PULMONARY DISEASE, UNSPECIFIED A/P 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 s/p ex-lap/ileocecectomy COPD HTN DM Hyperlipidemia Smoker - continue antibiotics - f/u final pathology - inhaled bronchodilators - O2 to keep Spo2 >90% - pain control - incentive spirometry - outpt PFTs - smoking cessation - DVT prophylaxis - Monitor for return of bowel function Dr Doss
[2019-01-25] MEDS: PANTOPRAZOLE SODIUM 40 MG VIAL IVPUSH SCH (10:20)
[2019-01-25] MEDS: ENOXAPARIN NA (PORCINE) 40 MG/0.4 ML DISP.SYRIN SQ SCH (10:20)
[2019-01-25] MEDS: BUDESONIDE/FORMETEROL FUMARATE 160/4.5 mcg INHALER IH SCH ×2 (10:21→22:04)
[2019-01-25] MEDS: TIOTROPIUM BROMIDE 2.5 MCG (SPIRIVA) RESPIMAT INHALER IH SCH (10:21)
[2019-01-25] MEDS: POTASSIUM CHLORIDE 40 MEQ in SODIUM CHLORIDE 0.45% 1,000 ML IVPB SCH ×2 (12:09→17:25)
--- NOTE | 2019-01-25 14:30 | CONSULT ---
Consultation: CONSULT REQUEST: Heme/Onc HISTORY OF PRESENT ILLNESS: Patient is a 68 yo M with a PMHx of HTN, HLD, DM, depression, came to the ED with abdominal pain , nausea and vomiting for 5 days duration. His PCP sent him for a CT scan which revealed a cecal mass. He was unable to go for his colonoscopy appointment due to his admission. Patient was found to have a CT which showed interval development of SBO 2/2 focal soft mass lesion involving the cecum and ilocecal valve w/ several mildly enlarged right lower quadrant mescenteric lymph nodes. He is now POD #4 ileocectomy and primary anastamosis. Operated by Dr. Salinas. Biopsy sent. Heme/onc consulted because of the mass found. CEA elevated. Patient now NPO. He's upset because he says he is hungry. He had a BM last night. He offers no new complaints. Denies sob, chest pain, nausea, vomiting, chills, fevers. He says his belly hurts when we press on it but no current symptoms. 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 Former crack/cocaine use, quit decades ago. REVIEW OF SYSTEMS: CONSTITUTIONAL: Absent: fever, chills, diaphoresis, generalized weakness, malaise, loss of appetite, weight change HEENT: Absent: rhinorrhea, nasal congestion, throat pain, throat swelling, difficulty swallowing, mouth swelling, ear pain, eye pain, visual changes CARDIOVASCULAR: Absent: chest pain, syncope, palpitations, irregular heart rate, lightheadedness , peripheral edema RESPIRATORY: Absent: cough, shortness of breath, dyspnea with exertion, orthopnea, wheezing, stridor, hemoptysis GASTROINTESTINAL: abd pain Absent: abdominal distension, nausea, vomiting, diarrhea, constipation, melena , hematochezia GENITOURINARY: Absent: dysuria, frequency, urgency, hesitancy, hematuria, flank pain, genital pain MUSCULOSKELETAL: Absent: myalgia, arthralgia, joint swelling, back pain, neck pain SKIN: Absent: rash, itching, pallor HEMATOLOGIC/IMMUNOLOGIC: Absent: easy bleeding, easy bruising, lymphadenopathy, frequent infections PHYSICAL EXAMINATION Vital Signs - 24 hr 01/24/19 01/24/19 01/24/19 15:05 18:00 21:00 Temperature 98.3 F 98.9 F 98.9 F Pulse Rate 92 H 94 H 93 H Respiratory 18 18 18 Rate Blood Pressure 147/75 158/88 150/83 O2 Sat by Pulse 98 Oximetry (%) 01/25/19 01/25/19 06:06 12:00 Temperature 98.8 F 98 F Pulse Rate 81 98 H Respiratory 18 18 Rate Blood Pressure 151/72 157/88 O2 Sat by Pulse Oximetry (%) GENERAL: a/o x 3, comfortable in bed EYES: Pupils equal, round and reactive to light EARS, NOSE, THROAT: dry mucous membranes, oropharynx clear NECK: supple without lymphadenopathy, JVD, or masses. LUNGS: crackles at the bases CHEST: Tattoo on L chest HEART:RRR ABDOMEN: soft, mildly distended, mild tenderness to palpation in all quadrants. +Dressing on surgical site. LOWER EXTREMITIES: 2+ pulses, no edema TESTES: uncircumsized, no masses palpable. Laboratory Results - last 24 hr 01/25/19 01/25/19 01/25/19 01:48 06:06 06:17 WBC 10.0 RBC 3.61 L Hgb 12.1 Hct 35.2 L MCV 97.4 H MCH 33.5 MCHC 34.4 RDW 13.3 Plt Count 289 D MPV 9.5 Absolute Neuts (auto) 7.6 Neutrophils % 75.3 Lymphocytes % 13.8 D Monocytes % 6.7 Eosinophils % 3.9 D Basophils % 0.3 Nucleated RBC % 0 Sodium Potassium Chloride Carbon Dioxide Anion Gap BUN Creatinine Est GFR (CKD-EPI)AfAm Est GFR (CKD-EPI)NonAf POC Glucometer 124 125 Random Glucose Calcium Total Bilirubin AST ALT Alkaline Phosphatase Total Protein Albumin 01/25/19 06:17 WBC RBC Hgb Hct MCV MCH MCHC RDW Plt Count MPV Absolute Neuts (auto) Neutrophils % Lymphocytes % Monocytes % Eosinophils % Basophils % Nucleated RBC % Sodium 141 Potassium 3.6 Chloride 102 Carbon Dioxide 28 Anion Gap 11 BUN 7.7 Creatinine 0.4 L Est GFR (CKD-EPI)AfAm 140.46 Est GFR (CKD-EPI)NonAf 121.19 POC Glucometer Random Glucose 127 H Calcium 8.5 Total Bilirubin 0.5 AST 15 ALT 15 Alkaline Phosphatase 60 Total Protein 5.5 L Albumin 2.4 L Active Medications Generic Name Dose Route Start Last Admin Trade Name Freq PRN Reason Stop Dose Admin Acetaminophen 1,000 mg 01/21/19 23:00 01/25/19 10:22 Ofirmev Injection - IVPB 1,000 mg Q6H ASIA Administration Albuterol Sulfate 1 amp 01/22/19 08:00 01/25/19 11:04 Ventolin 0.083% Nebulizer Soln - NEB Not Given RQID ASIA Budesonide/Formoterol Fumarate 2 puff 01/21/19 22:00 01/25/19 10:21 Symbicort 160/4.5mcg - IH 2 puff BID ASIA Administration Enoxaparin Sodium 40 mg 01/22/19 10:00 01/25/19 10:20 Lovenox - SQ 40 mg DAILY ASIA Administration Hydralazine HCl 10 mg 01/22/19 11:25 Apresoline Injection - IVPB Q8H PRN HYPERTENSION Piperacillin Sod/Tazobactam 100 mls @ 200 mls/hr 01/22/19 02:00 01/25/19 10: 21 Sod 4.5 gm/ Dextrose IVPB 200 mls/hr Q8H-IV ASIA Administration Protocol Potassium Chloride 40 meq/ 1,020 mls @ 83 mls/hr 01/24/19 11:00 01/25/19 12: 09 Sodium Chloride IVPB Not Given Q12H ASIA Insulin Aspart 1 vial 01/22/19 12:00 01/25/19 06:21 Novolog Vial Sliding Scale - SQ Not Given Q6HPO ASIA Protocol Melatonin 5 mg 01/24/19 02:29 01/24/19 23:18 Melatonin PO 5 mg HS PRN Administration INSOMNIA Pantoprazole Sodium 40 mg 01/22/19 10:00 01/25/19 10:20 Protonix Iv IVPUSH 40 mg DAILY ASIA Administration Tiotropium [place] 2 puff 01/22/19 10:00 01/25/19 10:21 Spiriva Respimat IH 2 puff DAILY ASIA Administration ASSESSMENT/PLAN: #Cecal Mass #POD #4 For ileocectomy and primary anastomosis -await pathology results -Consider CT chest for staging Dispo: We will continue to follow the patient. Thank you for this consultative opportunity. Visit type - Emergency Visit Emergency Visit: Yes ED Registration Date: 01/20/19 Care time: The patient presented to the Emergency Department on the above date and was hospitalized for further evaluation of their emergent condition. - New Patient This patient is new to me today: Yes Date on this admission: 01/26/19 - Critical Care Critical Care patient: No ATTENDING PHYSICIAN STATEMENT I saw and evaluated the patient. I reviewed the resident's note and discussed the case with the resident. I agree with the resident's findings and plan as documented. SUBJECTIVE: OBJECTIVE: ASSESSMENT AND PLAN:
[2019-01-25 15:06] VITALS: BMI 29.3
--- NOTE | 2019-01-25 15:21 | PN ---
Physical Exam: SUBJECTIVE: Patient seen and examined by the bedside, AOx3 OBJECTIVE: Vital Signs Period Temp Pulse Resp BP Sys/[place]wood Pulse Ox Last 24 Hr 98 F-98.9 F 81-98 18-18 150-158/72-88 98 GENERAL: The patient is awake, alert, and fully oriented, in pain. HEAD: Normal with no signs of trauma, NG tube placed. EYES: PERRL, extraocular movements intact, sclera anicteric, conjunctiva clear. No ptosis. ENT: Ears normal, nares patent, moist mucous membranes. NECK: Trachea midline, supple. LUNGS: Breath sounds equal, clear to auscultation bilaterally, no wheezes, no crackles, no accessory muscle use. HEART: Regular rate and rhythm, S1, S2 without murmur, rub or gallop. ABDOMEN: Soft, tender to palpation, hypoactive bowel sounds, no guarding, no rebound, no hepatosplenomegaly, no masses. EXTREMITIES: 2+ pulses, warm, well-perfused, no edema. NEUROLOGICAL: Cranial nerves II through XII grossly intact. Normal speech, normal gait. PSYCH: Patient appears upset and agitated, not entirely cooperative. SKIN: Warm, dry, normal turgor, no rashes or lesions noted Laboratory Results - last 24 hr 01/25/19 01/25/19 01/25/19 01:48 06:06 06:17 WBC 10.0 RBC 3.61 L Hgb 12.1 Hct 35.2 L MCV 97.4 H MCH 33.5 MCHC 34.4 RDW 13.3 Plt Count 289 D MPV 9.5 Absolute Neuts (auto) 7.6 Neutrophils % 75.3 Lymphocytes % 13.8 D Monocytes % 6.7 Eosinophils % 3.9 D Basophils % 0.3 Nucleated RBC % 0 Sodium Potassium Chloride Carbon Dioxide Anion Gap BUN Creatinine Est GFR (CKD-EPI)AfAm Est GFR (CKD-EPI)NonAf POC Glucometer 124 125 Random Glucose Calcium Total Bilirubin AST ALT Alkaline Phosphatase Total Protein Albumin 01/25/19 06:17 WBC RBC Hgb Hct MCV MCH MCHC RDW Plt Count MPV Absolute Neuts (auto) Neutrophils % Lymphocytes % Monocytes % Eosinophils % Basophils % Nucleated RBC % Sodium 141 Potassium 3.6 Chloride 102 Carbon Dioxide 28 Anion Gap 11 BUN 7.7 Creatinine 0.4 L Est GFR (CKD-EPI)AfAm 140.46 Est GFR (CKD-EPI)NonAf 121.19 POC Glucometer Random Glucose 127 H Calcium 8.5 Total Bilirubin 0.5 AST 15 ALT 15 Alkaline Phosphatase 60 Total Protein 5.5 L Albumin 2.4 L Active Medications Generic Name Dose Route Start Last Admin Trade Name Freq PRN Reason Stop Dose Admin Acetaminophen 1,000 mg 01/21/19 23:00 01/25/19 10:22 Ofirmev Injection - IVPB 1,000 mg Q6H ASIA Administration Albuterol Sulfate 1 amp 01/22/19 08:00 01/25/19 11:04 Ventolin 0.083% Nebulizer Soln - NEB Not Given RQID ASIA Budesonide/Formoterol Fumarate 2 puff 01/21/19 22:00 01/25/19 10:21 Symbicort 160/4.5mcg - IH 2 puff BID ASIA Administration Enoxaparin Sodium 40 mg 01/22/19 10:00 01/25/19 10:20 Lovenox - SQ 40 mg DAILY ASIA Administration Hydralazine HCl 10 mg 01/22/19 11:25 Apresoline Injection - IVPB Q8H PRN HYPERTENSION Piperacillin Sod/Tazobactam 100 mls @ 200 mls/hr 01/22/19 02:00 01/25/19 10: 21 Sod 4.5 gm/ Dextrose IVPB 200 mls/hr Q8H-IV ASIA Administration Protocol Potassium Chloride 40 meq/ 1,020 mls @ 83 mls/hr 01/24/19 11:00 01/25/19 12: 09 Sodium Chloride IVPB Not Given Q12H ASIA Insulin Aspart 1 vial 01/22/19 12:00 01/25/19 14:45 Novolog Vial Sliding Scale - SQ Not Given Q6HPO ASIA Protocol Melatonin 5 mg 01/24/19 02:29 01/24/19 23:18 Melatonin PO 5 mg HS PRN Administration INSOMNIA Pantoprazole Sodium 40 mg 01/22/19 10:00 01/25/19 10:20 Protonix Iv IVPUSH 40 mg DAILY ASIA Administration Tiotropium [place] 2 puff 01/22/19 10:00 01/25/19 10:21 Spiriva Respimat IH 2 puff DAILY ASIA Administration ASSESSMENT/PLAN: 68 y/o M, PMH of asthma, type 2 DM, HTN, and HLD. Presented to the ER with worsening diffuse abd pain for 5 days. Pain: RLQ, now diffuse, gradual onset, 3 weeks, 9/10, squeezing pain, relieved by lying flat Associated with multiple episodes of diarrhea, nausea and NBNB vomiting. # Small bowl obstruction due to cecal mass - Pt. removed NGT, surgery recommends placing NGT, however patient refusing at this time, was informed about the risks - Abdominal Xray ordered to check for distension - Abdominal CT prior to surgery: SBO secondary to a focal soft tissue mass in cecum and ileocecal, RLQ mesenteric lymph nodes enlarged. - Surgery: terminal ileum to hepatic flexure/appendix/cecum/portion of right colon resected and sent for histopath, some bowel content spillage - IV Zosyn started 01/22 - Protonix 40mg - Monitor electrolytes, Mg and K repleted 01/24 - Monitor WBC, trending down # Asthma - Spiriva, Ventolin, Symbicort, holding Singulair while NPO - Pulmo: Inhaled bronchodilators, incentive spirometery, outpatient PFTs, smoking cessation #Type 2 DM - Novolog SS - Holding home meds: metformin 1000mg, Levemir 80units #HTN - IVPB HCTZ 10mg Q8H - Hold home meds while NPO (Norvasc 10mg, lisinopril 40mg, HCTZ 25mg) # Hyperlipidemia - Holding crestor 10mg while NPO #Hx of psych - Home meds: Seroquel 50mg, Zolpidem 10mg, Citalopram 20mg, #CARROLL vs CKD - Cr elvated, will call PCP to confirm if chronic or acute- no known baseline #FEN -NGT -NPO #DVT ppx - Hold ASA, AC - Lovenox 40mg #Dispo -Monitor Visit type - Emergency Visit Emergency Visit: Yes ED Registration Date: 01/20/19 Care time: The patient presented to the Emergency Department on the above date and was hospitalized for further evaluation of their emergent condition. - New Patient This patient is new to me today: No - Critical Care Critical Care patient: No - Discharge Referral Referred to [facility] Med P.C.: No ATTENDING PHYSICIAN STATEMENT I saw and evaluated the patient. I reviewed the resident's note and discussed the case with the resident. I agree with the resident's findings and plan as documented. SUBJECTIVE: OBJECTIVE: ASSESSMENT AND PLAN:
--- NOTE | 2019-01-25 15:42 | PN ---
Progress Note, Physician Chief Complaint: obstructing cecal mass History of Present Illness: 68 yo male PMH asthma, DM type 2, HTN, Hyperlipidemia presents to the ED c/o of diffuse abdominal pain of 5 days duration, which worsened yesterday, prompting him to come to the ED, associated with multiple episodes of fatigue, diarrhea, nausea and NBNB vomiting. Pt reports his abdominal pain was initially localized and now is diffuse. He report passing normal flatus - Current Medication List Current Medications: Active Medications Acetaminophen (Ofirmev Injection -) 1,000 mg IVPB Q6H [facility] Last Admin: 01/25/19 10:22 Dose: 1,000 mg Albuterol Sulfate (Ventolin 0.083% Nebulizer Soln -) 1 amp NEB RQID [facility] Last Admin: 01/25/19 11:04 Dose: Not Given Budesonide/Formoterol Fumarate (Symbicort 160/4.5mcg -) 2 puff IH BID [facility] Last Admin: 01/25/19 10:21 Dose: 2 puff Enoxaparin Sodium (Lovenox -) 40 mg SQ DAILY [facility] Last Admin: 01/25/19 10:20 Dose: 40 mg Hydralazine HCl (Apresoline Injection -) 10 mg IVPB Q8H PRN PRN Reason: HYPERTENSION Piperacillin Sod/Tazobactam (Sod 4.5 gm/ Dextrose) 100 mls @ 200 mls/hr IVPB Q8H-IV [facility]; Protocol Last Admin: 01/25/19 10:21 Dose: 200 mls/hr Potassium Chloride 40 meq/ (Sodium Chloride) 1,020 mls @ 83 mls/hr IVPB Q12H [facility] Last Admin: 01/25/19 12:09 Dose: Not Given Insulin Aspart (Novolog Vial Sliding Scale -) 1 vial SQ Q6HPO [facility]; Protocol Last Admin: 01/25/19 14:45 Dose: Not Given Melatonin (Melatonin) 5 mg PO HS PRN PRN Reason: INSOMNIA Last Admin: 01/24/19 23:18 Dose: 5 mg Pantoprazole Sodium (Protonix Iv) 40 mg IVPUSH DAILY [facility] Last Admin: 01/25/19 10:20 Dose: 40 mg Tiotropium [place] (Spiriva Respimat) 2 puff IH DAILY [facility] Last Admin: 01/25/19 10:21 Dose: 2 puff - Objective Vital Signs: Vital Signs Temperature 98 F 01/25/19 12:00 Pulse Rate 98 H 01/25/19 12:00 Respiratory Rate 18 01/25/19 12:00 Blood Pressure 157/88 01/25/19 12:00 O2 Sat by Pulse Oximetry (%) 98 01/24/19 21:00 Constitutional: Yes: Well Nourished, No Distress, Calm, Obese Eyes: Yes: Conjunctiva Clear, EOM Intact HENT: Yes: Atraumatic, Normocephalic Neck: Yes: Supple, Trachea Midline Cardiovascular: Yes: Regular Rate and Rhythm, S1, S2 Respiratory: Yes: Regular, CTA Bilaterally Gastrointestinal: Yes: Normal Bowel Sounds, Soft, Abdomen, Obese. No: Tenderness ...Rectal Exam: Yes: Deferred Genitourinary: No: CVA Tenderness - Left, CVA Tenderness - Right Breast(s): No: Mass, Skin Changes Musculoskeletal: No: Muscle Pain, Muscle Weakness Extremities: No: Cool, Cyanosis Edema: No Peripheral Pulses WNL: Yes Peripheral Pulses: Left Radial: 2+, Right Radial: 2+, Left Doralis Pedis: 2+, Right Dorsalis Pedis: 2+, Left Femoral: 2+, Right Femoral: 2+ Wound/Incision: Yes: Clean/Dry, Well Approximated, Dressing Dry and Intact Neurological: Yes: Alert, Oriented Psychiatric: Yes: Alert, Oriented Labs: CBC, BMP 01/25/19 06:17 01/25/19 06:17 INR, PTT INR 1.07 (0.83-1.09) 01/21/19 06:39 Problem List - Problems (1) Cecum mass Assessment/Plan: 68 yo male [facility] POD#5 s/p ileoceetomy with primary anastomosis, for obstruction likely colon cancer, elevated CEA All management decisions per medical team Medical oncology evaluation f/u pathology clear liquid diet IVF hydaration Daily Dressing by RN ordered trend labs, correct electrolytes broad spectrum IV antibiotics, given fecal contamination of abdomen will follow Code(s): K63.89 - OTHER SPECIFIED DISEASES OF INTESTINE (2) COPD (chronic obstructive pulmonary disease) Code(s): J44.9 - CHRONIC OBSTRUCTIVE PULMONARY DISEASE, UNSPECIFIED (3) Hyperlipidemia Code(s): E78.5 - HYPERLIPIDEMIA, UNSPECIFIED Qualifiers: Hyperlipidemia type: unspecified Qualified Code(s): E78.5 - Hyperlipidemia , unspecified (4) Hypertension Code(s): I10 - ESSENTIAL (PRIMARY) HYPERTENSION Qualifiers: Hypertension type: essential hypertension Qualified Code(s): I10 - Essential (primary) hypertension (5) SBO (small bowel obstruction) Code(s): K56.609 - UNSP INTESTNL OBST, UNSP TO PARTIAL VERSUS COMPLETE OBST
--- NOTE | 2019-01-25 17:24 | PN ---
Progress Note (short form) - Note Progress Note: pod # 4 s/p ileocecectomy no fevers on clears Vital Signs Period Temp Pulse Resp BP Sys/Haywood Pulse Ox Last 24 Hr 98 F-98.9 F 79-98 18-20 150-160/72-88 98 cor-rrr lungs decreased bs at bases abd- soft, inciion is open in parts,, clean no erythema, no drainage ext no edema CBC, BMP 01/25/ 06:17 01/25/ 06:17 Microbiology 01/20/19 16:20 Urine - Urine Clean Catch Urine Culture - Final NO GROWTH OBTAINED a/p pod #4 s/p ileocectomy continue zosyn hopefully d/c antibiotics in next 24 -48 hours if okay with surgery
--- NOTE | 2019-01-25 17:36 | PN ---
Teaching Attending Note Name of Resident: Elias Ohara ATTENDING PHYSICIAN STATEMENT I saw and evaluated the patient. I reviewed the resident's note and discussed the case with the resident. I agree with the resident's findings and plan as documented. SUBJECTIVE: Patient pulled the NG-tube today , and does not want it back. No fever or chills. states that he has been passing gas. OBJECTIVE: Vital Signs Temperature 98.4 F 01/25/19 15:42 Pulse Rate 79 01/25/19 15:42 Respiratory Rate 20 01/25/19 15:42 Blood Pressure 160/78 01/25/19 15:42 O2 Sat by Pulse Oximetry (%) 98 01/24/19 21:00 GENERAL: The patient is awake, alert, and fully oriented, in no acute distress. HEAD: Normal with no signs of trauma. EYES: PERRL, extraocular movements intact, sclera anicteric, conjunctiva clear. ENT: Ears normal, oropharynx clear without exudates, moist mucous membranes. no NG tube since he pulled it NECK: Trachea midline, full range of motion, supple. LUNGS: Breath sounds equal, clear to auscultation bilaterally, no wheezes, no crackles, no accessory muscle use. HEART: Regular rate and rhythm, S1, S2 without murmur, rub or gallop. ABDOMEN: positive for dressing, hypoactive bowel sounds. soft. EXTREMITIES: 2+ pulses, warm, well-perfused, no edema. NEUROLOGICAL: Cranial nerves II through XII grossly intact. Normal speech, gait not observed. PSYCH: Normal mood, normal affect. SKIN: Warm, dry, normal turgor, no rashes or lesions noted CBCD WBC 10.0 K/mm3 (4.0-10.0) 01/25/19 06:17 RBC 3.61 M/mm3 (4.00-5.60) L 01/25/19 06:17 Hgb 12.1 GM/dL (11.7-16.9) 01/25/19 06:17 Hct 35.2 % (35.4-49) L 01/25/19 06:17 MCV 97.4 fl (80-96) H 01/25/19 06:17 MCHC 34.4 g/dl (32.0-35.9) 01/25/19 06:17 RDW 13.3 % (11.9-15.9) 01/25/19 06:17 Plt Count 289 K/MM3 (134-434) D 01/25/19 06:17 MPV 9.5 fl (7.5-11.1) 01/25/19 06:17 CMP Sodium 141 mmol/L (136-145) 01/25/19 06:17 Potassium 3.6 mmol/L (3.5-5.1) 01/25/19 06:17 Chloride 102 mmol/L (98-107) 01/25/19 06:17 Carbon Dioxide 28 mmol/L (21-32) 01/25/19 06:17 Anion Gap 11 MMOL/L (8-16) 01/25/19 06:17 BUN 7.7 mg/dL (7-18) 01/25/19 06:17 Creatinine 0.4 mg/dL (0.55-1.3) L 01/25/19 06:17 Random Glucose 127 mg/dL (74-106) H 01/25/19 06:17 Calcium 8.5 mg/dL (8.5-10.1) 01/25/19 06:17 Total Bilirubin 0.5 mg/dL (0.2-1) 01/25/19 06:17 AST 15 U/L (15-37) 01/25/19 06:17 ALT 15 U/L (13-61) 01/25/19 06:17 Alkaline Phosphatase 60 U/L (45-117) 01/25/19 06:17 Total Protein 5.5 g/dl (6.4-8.2) L 01/25/19 06:17 Albumin 2.4 g/dl (3.4-5.0) L 01/25/19 06:17 CARDIAC ENZYMES Creatine Kinase 352 U/L (26-308) H 01/22/19 19:40 Troponin I < 0.02 ng/ml (0.00-0.05) 01/22/19 19:40 Current Medications Generic Name Dose Route Start Last Admin Trade Name Freq PRN Reason Stop Dose Admin Acetaminophen 1,000 mg 01/21/19 23:00 01/25/19 17:24 Ofirmev Injection - IVPB 1,000 mg Q6H ASIA Administration Albuterol Sulfate 1 amp 01/22/19 08:00 01/25/19 16:10 Ventolin 0.083% Nebulizer Soln - NEB Not Given RQID [facility] Budesonide/Formoterol Fumarate 2 puff 01/21/19 22:00 01/25/19 10:21 Symbicort 160/4.5mcg - IH 2 puff BID [facility] Administration Enoxaparin Sodium 40 mg 01/22/19 10:00 01/25/19 10:20 Lovenox - SQ 40 mg DAILY [facility] Administration Hydralazine HCl 10 mg 01/22/19 11:25 Apresoline Injection - IVPB Q8H PRN HYPERTENSION Piperacillin Sod/Tazobactam 100 mls @ 200 mls/hr 01/22/19 02:00 01/25/19 17: 24 Sod 4.5 gm/ Dextrose IVPB 200 mls/hr Q8H-IV [facility] Administration Protocol Potassium Chloride 40 meq/ 1,020 mls @ 83 mls/hr 01/24/19 11:00 01/25/19 17: 25 Sodium Chloride IVPB 83 mls/hr Q12H [facility] Administration Insulin Aspart 1 vial 01/22/19 12:00 01/25/19 14:45 Novolog Vial Sliding Scale - SQ Not Given Q6HPO [facility] Protocol Melatonin 5 mg 01/24/19 02:29 01/24/19 23:18 Melatonin PO 5 mg HS PRN Administration INSOMNIA Pantoprazole Sodium 40 mg 01/22/19 10:00 01/25/19 10:20 Protonix Iv IVPUSH 40 mg DAILY [facility] Administration Tiotropium [place] 2 puff 01/22/19 10:00 01/25/19 10:21 Spiriva Respimat IH 2 puff DAILY [facility] Administration 01/20/19 16:20 Urine - Urine Clean Catch Urine Culture - Final NO GROWTH OBTAINED ASSESSMENT AND PLAN: This is a 68 year old man with a history of HTN, hyperlipidemia, type 2 DM, asthma/COPD, GERD, depression who presented to the ED with abdominal pain, nausea, and vomiting. # POD#4 Ileocecectomy with primary anastomosis, due to having small bowel obstruction secondary to cecal mass. Terminal ileum/appendix/cecum/portion of right colon was send to pathology. Follow the Bx result. Surgeon Abiel Jones. elevated CEA. All surgical decisions as per surgery until patient is stable surgically. Oncology for consult, as per surgery continue NPO, IVF, NG- tube to Low intermediate suctions. Continue IV antibiotics. ID on the case. WBC is trending down. as per ID continue zosyn for 24-48 hr, check with sx prior to discontinuing the antibiotics. # Hypokalemia added KCL in The IVF # Type 2 DM: Hold glipizide, metformin, Levemir, SS with coverage # HTN: Uncontrolled , on Hydralazine will continue with holding parameter, Hold Norvasc, lisinopril, HCTZ while NPO # Hyperlipidemia: Hold Crestor while NPO # Asthma/COPD: Continue Advair, albuterol nebs; Hold Singulair while NPO, Pulmonary on the case # GERD: Hold Prilosec while NPO # Depression: Hold Seroquel, Celexa while NPO DVT PX: Lovenox
[2019-01-25] MEDS ORDERED: hydrALAZINE HCL 20 MG/ML VIAL IVPB SCH (18:00)
[2019-01-25] MEDS ORDERED: hydrALAZINE HCL 20 MG/ML VIAL IVPB PRN (18:09)
[2019-01-25] MEDS ORDERED: amLODIPine BESYLATE 10 MG TABLET (FP) PO SCH (18:15)
[2019-01-25] MEDS ORDERED: LISINOPRIL 20 MG TABLET (FP) PO ONE ×2 (18:15→20:15)
[2019-01-25] MEDS ORDERED: QUEtiapine FUMARATE 25 MG TABLET (FP) ONE (20:50)
[2019-01-25] MEDS ORDERED: KETOTIFEN FUMARATE OP SCH (22:00)
[2019-01-25] MEDS: MONTELUKAST NA 10 MG TABLET PO SCH (22:02)
[2019-01-25] MEDS: DOCUSATE SODIUM 100 MG CAPSULE (FP) PO SCH (22:02)
[2019-01-25] MEDS: MELATONIN 5 MG TABLETS PO PRN (22:02)
[2019-01-25] MEDS: QUEtiapine FUMARATE 50 MG TABLET PO SCH (22:03)
[2019-01-25] MEDS: amLODIPine BESYLATE 10 MG TABLET (FP) PO SCH (22:03)
--- NOTE | 2019-01-25 22:23 | PN ---
Teaching Attending Note Name of Resident: Jordan Crawley ATTENDING PHYSICIAN STATEMENT I saw and evaluated the patient. I reviewed the resident's note and discussed the case with the resident. I agree with the resident's findings and plan as documented. ASSESSMENT AND PLAN: 68 yo male PMH asthma, DM type 2, HTN, Hyperlipidemia presents to the ED c/o of diffuse abdominal pain of 5 days duration, prompting him to come to the ED, associated with multiple episodes of fatigue, diarrhea, nausea and NBNB vomiting. CT a/p revealed -- SBO/cecal mass/ rt.mesenteric nodes POD#5 s/p ileocececectomy with primary anastomosis, for obstruction likely colon cancer Pathology pending will follow and make recommendations based on path
[2019-01-26] MEDS: INSULIN SLIDING SCALE (NOVOLOG) 1 VIAL SQ SCH ×4 (01:18→17:51)
[2019-01-26] MEDS ORDERED: PIPERACILLIN/TAZOBACTAM 4.5 GM VIAL IVPB ONE ×2 (01:28→09:33)
[2019-01-26] MEDS ORDERED: DEXTROSE 5%-WATER 100 ML IVPB ONE ×2 (01:28→09:34)
[2019-01-26] MEDS: PIPERACILLIN/TAZOB 4.5 GM 4.5 GM in DEXTROSE 5%-WATER 100 ML IVPB SCH ×4 (01:42→09:40)
[2019-01-26] MEDS: POTASSIUM CHLORIDE 40 MEQ in SODIUM CHLORIDE 0.45% 1,000 ML IVPB SCH ×2 (02:25→11:23)
[2019-01-26] MEDS: ACETAMINOPHEN 1000 MG/100 ML VIAL (NON FORMULARY) IVPB SCH ×2 (05:19→09:59)
[2019-01-26] MEDS: ALBUTEROL SO4 0.083% IH SOL 2.5 MG/3 ML VIAL.NEB. NEB SCH ×4 (07:35→20:30)
[2019-01-26 07:47] LABS: HEMATOCRIT 35.3 % (35.4-49); HEMOGLOBIN 12.1 GM/dL (11.7-16.9); MCH 33.2 pg (25.7-33.7); MCHC 34.1 g/dl (32.0-35.9); MEAN CELL VOLUME 97.3 fl (80-96); MEAN PLT VOLUME 9.2 fl (7.5-11.1); PLATELET COUNT 325 K/MM3 (134-434); RBC 3.63 M/mm3 (4.00-5.60); RDW 13.7 % (11.9-15.9); WHITE BLOOD COUNT 8.2 K/mm3 (4.0-10.0)
[2019-01-26 07:52] LABS: ALBUMIN 2.4 g/dl (3.4-5.0); BILIRUBIN,TOTAL 0.8 mg/dL (0.2-1); BLOOD UREA NITROGEN 6.2 mg/dL (7-18); CALCIUM 8.6 mg/dL (8.5-10.1); CREATININE 0.4 mg/dL (0.55-1.3); POTASSIUM 3.5 mmol/L (3.5-5.1); TOT PROT 5.8 g/dl (6.4-8.2)
[2019-01-26] MEDS: DOCUSATE SODIUM 100 MG CAPSULE (FP) PO SCH ×2 (09:36→22:19)
[2019-01-26] MEDS: ENOXAPARIN NA (PORCINE) 40 MG/0.4 ML DISP.SYRIN SQ SCH (09:39)
[2019-01-26] MEDS: PANTOPRAZOLE SODIUM 40 MG VIAL IVPUSH SCH (09:39)
[2019-01-26] MEDS: amLODIPine BESYLATE 10 MG TABLET (FP) PO SCH (09:39)
[2019-01-26] MEDS: TIOTROPIUM BROMIDE 2.5 MCG (SPIRIVA) RESPIMAT INHALER IH SCH (09:40)
[2019-01-26] MEDS: BUDESONIDE/FORMETEROL FUMARATE 160/4.5 mcg INHALER IH SCH ×2 (09:40→22:20)
--- NOTE | 2019-01-26 09:54 | PN ---
Progress Note (short form) - Note Progress Note: Events from overnight noted. Denies shortness of breath or chest pain. Still with some incisional pain. Intake & Output 01/23/19 01/24/19 01/25/19 01/26/19 23:59 23:59 23:59 23:59 Intake Total 850 1254.5 1330 Output Total 1500 2300 850 1200 Balance -650 -2300 404.5 130 Weight 171 lb Last Vital Signs Temp Pulse Resp BP Pulse Ox 98.4 F 80 18 140/70 98 01/26/19 06:11 01/26/19 06:11 01/26/19 06:11 01/26/19 06:11 01/25/19 21:00 Active Medications Acetaminophen (Ofirmev Injection -) 1,000 mg IVPB Q6H [facility] Last Admin: 01/26/19 05:19 Dose: 1,000 mg Albuterol Sulfate (Ventolin 0.083% Nebulizer Soln -) 1 amp NEB RQID [facility] Last Admin: 01/26/19 07:35 Dose: Not Given Amlodipine Besylate (Norvasc -) 10 mg PO DAILY [facility] Last Admin: 01/26/19 09:39 Dose: 10 mg Budesonide/Formoterol Fumarate (Symbicort 160/4.5mcg -) 2 puff IH BID [facility] Last Admin: 01/26/19 09:40 Dose: 2 puff Docusate Sodium (Colace -) 100 mg PO BID [facility] Last Admin: 01/26/19 09:36 Dose: 100 mg Enoxaparin Sodium (Lovenox -) 40 mg SQ DAILY [facility] Last Admin: 01/26/19 09:39 Dose: 40 mg Hydralazine HCl (Apresoline Injection -) 10 mg IVPB Q8H PRN PRN Reason: elevated Blood pressure Piperacillin Sod/Tazobactam (Sod 4.5 gm/ Dextrose) 100 mls @ 200 mls/hr IVPB Q8H-IV [facility]; Protocol Last Admin: 01/26/19 09:40 Dose: 200 mls/hr Potassium Chloride 40 meq/ (Sodium Chloride) 1,020 mls @ 83 mls/hr IVPB Q12H [facility] Last Admin: 01/26/19 02:25 Dose: Not Given Insulin Aspart (Novolog Vial Sliding Scale -) 1 vial SQ Q6HPO [facility]; Protocol Last Admin: 01/26/19 06:29 Dose: Not Given Melatonin (Melatonin) 5 mg PO HS PRN PRN Reason: INSOMNIA Last Admin: 01/25/19 22:02 Dose: 5 mg Montelukast Sodium (Singulair -) 10 mg PO HS [facility] Last Admin: 01/25/19 22:02 Dose: 10 mg Non-Formulary Medication (Ketotifen Fumarate [Ketotifen Fumarate]) 1 drop OP BID [facility] Pantoprazole Sodium (Protonix Iv) 40 mg IVPUSH DAILY [facility] Last Admin: 01/26/19 09:39 Dose: 40 mg Quetiapine Fumarate (Seroquel -) 50 mg PO HS [facility] Last Admin: 01/25/19 22:03 Dose: 50 mg Tiotropium [place] (Spiriva Respimat) 2 puff IH DAILY [facility] Last Admin: 01/26/19 09:40 Dose: 2 puff Gen: NAD at rest Heart: RRR Lung: decreased breath sounds at the bases Abd: soft, (+) BS, appropriately tender to palpation Ext: no edema Laboratory Results - last 24 hr 01/25/19 01/26/19 01/26/19 17:57 00:10 06:04 WBC RBC Hgb Hct MCV MCH MCHC RDW Plt Count MPV Sodium Potassium Chloride Carbon Dioxide Anion Gap BUN Creatinine Est GFR (CKD-EPI)AfAm Est GFR (CKD-EPI)NonAf POC Glucometer 166 142 150 Random Glucose Calcium Total Bilirubin AST ALT Alkaline Phosphatase Total Protein Albumin 01/26/19 01/26/19 06:40 06:40 WBC 8.2 RBC 3.63 L Hgb 12.1 Hct 35.3 L MCV 97.3 H MCH 33.2 MCHC 34.1 RDW 13.7 Plt Count 325 MPV 9.2 Sodium 142 Potassium 3.5 Chloride 103 Carbon Dioxide 28 Anion Gap 12 BUN 6.2 L Creatinine 0.4 L Est GFR (CKD-EPI)AfAm 140.46 Est GFR (CKD-EPI)NonAf 121.19 POC Glucometer Random Glucose 146 H Calcium 8.6 Total Bilirubin 0.8 AST 14 L ALT 15 Alkaline Phosphatase 78 Total Protein 5.8 L Albumin 2.4 L Problem List - Problems (1) SBO (small bowel obstruction) Code(s): K56.609 - UNSP INTESTNL OBST, UNSP TO PARTIAL VERSUS COMPLETE OBST (2) Cecum mass Code(s): K63.89 - OTHER SPECIFIED DISEASES OF INTESTINE (3) Hyperlipidemia Code(s): E78.5 - HYPERLIPIDEMIA, UNSPECIFIED Qualifiers: Hyperlipidemia type: unspecified Qualified Code(s): E78.5 - Hyperlipidemia , unspecified (4) Hypertension Code(s): I10 - ESSENTIAL (PRIMARY) HYPERTENSION Qualifiers: Hypertension type: essential hypertension Qualified Code(s): I10 - Essential (primary) hypertension (5) COPD (chronic obstructive pulmonary disease) Code(s): J44.9 - CHRONIC OBSTRUCTIVE PULMONARY DISEASE, UNSPECIFIED A/P 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 s/p ex-lap/ileocecectomy COPD HTN DM Hyperlipidemia Smoker - continue antibiotics - f/u final pathology - inhaled bronchodilators - O2 to keep Spo2 >90% - pain control - incentive spirometry - outpt PFTs - smoking cessation - DVT prophylaxis - Monitor for return of bowel function Dr Doss
--- NOTE | 2019-01-26 14:11 | PN ---
Teaching Attending Note Name of Resident: Elias Ohara ATTENDING PHYSICIAN STATEMENT I saw and evaluated the patient. I reviewed the resident's note and discussed the case with the resident. I agree with the resident's findings and plan as documented. SUBJECTIVE: Feeling better. Tolerating clears. No nausea/vomiting. Passed BM, no diarrhea. No fever/chills. OBJECTIVE: Afebrile, Hemodynamically Stable. Last Vital Signs Temp Pulse Resp BP Pulse Ox 98.1 F 90 18 147/91 98 01/26/19 10:10 01/26/19 10:10 01/26/19 10:10 01/26/19 10:10 01/25/19 21:00 HEENT - Atramatic, Nromocephalic. Heart - S1, S2, SM. Lungs - decreased air entry at bases. Abdomen - Midline laparotomy incision dressed - Dressing C/D/I. Extremities - No edema, no calf tenderness. Laboratory Results - last 24 hr 01/25/19 01/26/19 01/26/19 17:57 00:10 06:04 WBC RBC Hgb Hct MCV MCH MCHC RDW Plt Count MPV Sodium Potassium Chloride Carbon Dioxide Anion Gap BUN Creatinine Est GFR (CKD-EPI)AfAm Est GFR (CKD-EPI)NonAf POC Glucometer 166 142 150 Random Glucose Calcium Total Bilirubin AST ALT Alkaline Phosphatase Total Protein Albumin 01/26/19 01/26/19 01/26/19 06:40 06:40 11:28 WBC 8.2 RBC 3.63 L Hgb 12.1 Hct 35.3 L MCV 97.3 H MCH 33.2 MCHC 34.1 RDW 13.7 Plt Count 325 MPV 9.2 Sodium 142 Potassium 3.5 Chloride 103 Carbon Dioxide 28 Anion Gap 12 BUN 6.2 L Creatinine 0.4 L Est GFR (CKD-EPI)AfAm 140.46 Est GFR (CKD-EPI)NonAf 121.19 POC Glucometer 188 Random Glucose 146 H Calcium 8.6 Total Bilirubin 0.8 AST 14 L ALT 15 Alkaline Phosphatase 78 Total Protein 5.8 L Albumin 2.4 L Current Medications Generic Name Dose Route Start Last Admin Trade Name Freq PRN Reason Stop Dose Admin Acetaminophen 1,000 mg 01/21/19 23:00 01/26/19 09:59 Ofirmev Injection - IVPB 1,000 mg Q6H [facility] Administration Albuterol Sulfate 1 amp 01/22/19 08:00 01/26/19 07:35 Ventolin 0.083% Nebulizer Soln - NEB Not Given RQID [facility] Amlodipine Besylate 10 mg 01/25/19 20:00 01/26/19 09:39 Norvasc - PO 10 mg DAILY [facility] Administration Budesonide/Formoterol Fumarate 2 puff 01/21/19 22:00 01/26/19 09:40 Symbicort 160/4.5mcg - IH 2 puff BID [facility] Administration Docusate Sodium 100 mg 01/25/19 22:00 01/26/19 09:36 Colace - PO 100 mg BID [facility] Administration Enoxaparin Sodium 40 mg 01/22/19 10:00 01/26/19 09:39 Lovenox - SQ 40 mg DAILY [facility] Administration Hydralazine HCl 10 mg 01/25/19 18:09 Apresoline Injection - IVPB Q8H PRN elevated Blood pressure Piperacillin Sod/Tazobactam 100 mls @ 200 mls/hr 01/22/19 02:00 01/26/19 09: 40 Sod 4.5 gm/ Dextrose IVPB 200 mls/hr Q8H-IV [facility] Administration Protocol Potassium Chloride 40 meq/ 1,020 mls @ 83 mls/hr 01/24/19 11:00 01/26/19 11: 23 Sodium Chloride IVPB 83 mls/hr Q12H [facility] Administration Insulin Aspart 1 vial 01/22/19 12:00 01/26/19 11:37 Novolog Vial Sliding Scale - SQ 2 units Q6HPO [facility] Administration Protocol Melatonin 5 mg 01/24/19 02:29 01/25/19 22:02 Melatonin PO 5 mg HS PRN Administration INSOMNIA Montelukast Sodium 10 mg 01/25/19 22:00 01/25/19 22:02 Singulair - PO 10 mg HS [facility] Administration Non-Formulary Medication 1 drop 01/25/19 22:00 Ketotifen Fumarate [Ketotifen Fumarate] OP BID [facility] Pantoprazole Sodium 40 mg 01/22/19 10:00 01/26/19 09:39 Protonix Iv IVPUSH 40 mg DAILY [facility] Administration Quetiapine Fumarate 50 mg 01/25/19 22:00 01/25/19 22:03 Seroquel - PO 50 mg HS [facility] Administration Tiotropium [place] 2 puff 01/22/19 10:00 01/26/19 09:40 Spiriva Respimat IH 2 puff DAILY [facility] Administration Home Medications Medication Instructions Recorded Albuterol 0.083% Nebulizer Lissa 2 puff IH Q6H 01/20/19 [Ventolin 0.083% Nebulizer Soln -] Amlodipine Besylate 10 mg PO DAILY 01/20/19 Citalopram Hydrobromide 20 mg PO DAILY 01/20/19 [Citalopram HBr] Cyanocobalamin [Vitamin B12 -] 1,000 mcg PO DAILY 01/20/19 Fluticasone Prop 0.05% Nasal 50 spray NS DAILY 01/20/19 [Flonase -] Fluticasone/Salmeterol [Advair Hfa 2 inh PO BID 01/20/19 230-21 Mcg Inhaler] Hydrochlorothiazide 25 mg PO DAILY 01/20/19 Insulin Detemir [Levemir Flextouch] 80 unit SQ HS 01/20/19 Lisinopril [Prinivil -] 40 mg PO DAILY 01/20/19 Loratadine [Claritin] 10 mg PO DAILY 01/20/19 Montelukast Sodium [Singulair] 10 mg PO HS 01/20/19 Quetiapine Fumarate [Seroquel -] 50 mg PO HS 01/20/19 Rosuvastatin Calcium [Crestor] 10 mg PO DAILY 01/20/19 Zolpidem Tartrate [Ambien] 10 mg PO HS 01/20/19 Acetaminophen 2 tab PO BID PRN 01/21/19 Aspirin [Aspirin EC] 81 mg PO DAILY 01/21/19 Docusate Sodium [Colace] 100 mg PO BID 01/21/19 Ketotifen Fumarate 1 drop OP BID 01/21/19 Multivit-Min/Iron/Folic Acid/K 1 tab PO DAILY 01/21/19 [Multi-Day Plus Minerals Tablet] Omeprazole Magnesium [Prilosec Otc] 1 tab PO DAILY 01/21/19 Tiotropium [place] [Spiriva] 1 cap IH DAILY 01/21/19 metFORMIN HCL [Metformin HCl] 1,000 mg PO BIDAC 01/21/19 ASSESSMENT AND PLAN: 68 year old male with history of HTN, HLD, DM 2, Asthma/COPD, GERD, Depression, presented with abdominal pain/nausea/vomiting found to have bowel obstruction secondary to mass. 1. POD 5 s/p Ileocecetomy with primary stenosis. Cecal Mas excised - pathology pending. CEA Elevated. Oncology consulted - for out-patient management plan once pathology returns. IV Abx as per ID/Sx Advance Diet, prepare for discharge. Post-op/Wound Care as per Surgery and Surgery follow up as out-patient. 2. DM 2 - resume Metformin and Glipizide on discharge. Currently covered by sliding scale. 3. HTN - Resume Hydralazine, Norvasc, Lisinopril. 4. Astma/COPD - Stable Continue Albuterol Nebs and Advair. 5. Depression - resumed on Celexa, Seroquel. 6. HLD - resume Statin DVT PX: Lovenox SQ GI Px - PPI.
--- NOTE | 2019-01-26 14:55 | PN ---
Progress Note (short form) - Note Progress Note: pod # 5 s/p ileocecectomy no fevers on clears Vital Signs Period Temp Pulse Resp BP Sys/[place]wood Pulse Ox Last 24 Hr 98.1 F-98.5 F 74-90 18-20 140-160/70-91 98 cor-rrr lungs clear abd dressing intact ext no edema CBC, BMP 08/06/19 06:40 08/06/19 06:40 a/p pod #5 s/p ileocectomy day #5 zosyn afebrile normal wbc, normal platelets d/w resident who spoke with surgery will d/c antibiotics
[2019-01-26] MEDS: ROSUVASTATIN CA 10 MG TABLET (FP) PO SCH (15:32)
[2019-01-26] MEDS: CYANOCOBALAMIN 1,000 MCG TABLET (FP) PO SCH (15:32)
[2019-01-26] MEDS: HYDROCHLOROTHIAZIDE 25 MG TABLET (FP) PO SCH (15:32)
[2019-01-26] MEDS: FLUTICASONE PROP 0.05% 16 GM NASAL SPRAY NS SCH (15:33)
[2019-01-26] MEDS: ACETAMINOPHEN 325 MG TABLET (FP) PO PRN (15:33)
[2019-01-26] MEDS: ASPIRIN COATED 81 MG TABLET.EC PO SCH (15:34)
--- NOTE | 2019-01-26 16:07 | PN ---
Physical Exam: SUBJECTIVE: Patient seen and examined by the bedside, AOx3 OBJECTIVE: Vital Signs Period Temp Pulse Resp BP Sys/[place]wood Pulse Ox Last 24 Hr 98.1 F-98.5 F 74-90 18-18 140-159/70-91 98 GENERAL: The patient is awake, alert, and fully oriented, in pain. HEAD: Normal with no signs of trauma, NG tube placed. EYES: PERRL, extraocular movements intact, sclera anicteric, conjunctiva clear. No ptosis. ENT: Ears normal, nares patent, moist mucous membranes. NECK: Trachea midline, supple. LUNGS: Breath sounds equal, clear to auscultation bilaterally, no wheezes, no crackles, no accessory muscle use. HEART: Regular rate and rhythm, S1, S2 without murmur, rub or gallop. ABDOMEN: Soft, tender to palpation, hypoactive bowel sounds, no guarding, no rebound, no hepatosplenomegaly, no masses. EXTREMITIES: 2+ pulses, warm, well-perfused, no edema. NEUROLOGICAL: Cranial nerves II through XII grossly intact. Normal speech, normal gait. PSYCH: Patient appears upset and agitated, not entirely cooperative. SKIN: Warm, dry, normal turgor, no rashes or lesions noted Laboratory Results - last 24 hr 01/25/19 01/26/19 01/26/19 17:57 00:10 06:04 WBC RBC Hgb Hct MCV MCH MCHC RDW Plt Count MPV Sodium Potassium Chloride Carbon Dioxide Anion Gap BUN Creatinine Est GFR (CKD-EPI)AfAm Est GFR (CKD-EPI)NonAf POC Glucometer 166 142 150 Random Glucose Calcium Total Bilirubin AST ALT Alkaline Phosphatase Total Protein Albumin 01/26/19 01/26/19 01/26/19 06:40 06:40 11:28 WBC 8.2 RBC 3.63 L Hgb 12.1 Hct 35.3 L MCV 97.3 H MCH 33.2 MCHC 34.1 RDW 13.7 Plt Count 325 MPV 9.2 Sodium 142 Potassium 3.5 Chloride 103 Carbon Dioxide 28 Anion Gap 12 BUN 6.2 L Creatinine 0.4 L Est GFR (CKD-EPI)AfAm 140.46 Est GFR (CKD-EPI)NonAf 121.19 POC Glucometer 188 Random Glucose 146 H Calcium 8.6 Total Bilirubin 0.8 AST 14 L ALT 15 Alkaline Phosphatase 78 Total Protein 5.8 L Albumin 2.4 L Active Medications Generic Name Dose Route Start Last Admin Trade Name Freq PRN Reason Stop Dose Admin Acetaminophen 650 mg 01/26/19 15:00 01/26/19 15:33 Tylenol - PO 650 mg Q6H PRN Administration PAIN LEVEL 6-10 Albuterol Sulfate 1 amp 01/22/19 08:00 01/26/19 12:00 Ventolin 0.083% Nebulizer Soln - NEB Not Given RQID ASIA Amlodipine Besylate 10 mg 01/25/19 20:00 01/26/19 09:39 Norvasc - PO 10 mg DAILY ASIA Administration Aspirin 81 mg 01/26/19 14:30 01/26/19 15:34 Ecotrin - PO Not Given DAILY ASIA Budesonide/Formoterol Fumarate 2 puff 01/21/19 22:00 01/26/19 09:40 Symbicort 160/4.5mcg - IH 2 puff BID ASIA Administration Citalopram Hydrobromide 20 mg 01/27/19 10:00 Celexa - PO DAILY ASIA Cyanocobalamin 1,000 mcg 01/26/19 14:30 01/26/19 15:32 Vitamin B12 - PO 1,000 mcg DAILY [facility] Administration Docusate Sodium 100 mg 01/25/19 22:00 01/26/19 09:36 Colace - PO 100 mg BID ASIA Administration Enoxaparin Sodium 40 mg 01/22/19 10:00 01/26/19 09:39 Lovenox - SQ 40 mg DAILY [facility]IA Administration Fluticasone Propionate 50 spray 01/26/19 14:30 01/26/19 15:33 Flonase - NS 50 spray DAILY [facility] Administration Hydralazine HCl 10 mg 01/25/19 18:09 Apresoline Injection - IVPB Q8H PRN elevated Blood pressure Hydrochlorothiazide 25 mg 01/26/19 14:30 01/26/19 15:32 Hctz - PO 25 mg DAILY [facility] Administration Potassium Chloride 40 meq/ 1,020 mls @ 83 mls/hr 01/24/19 11:00 01/26/19 11: 23 Sodium Chloride IVPB 83 mls/hr Q12H ASIA Administration Insulin Aspart 1 vial 01/22/19 12:00 01/26/19 11:37 Novolog Vial Sliding Scale - SQ 2 units Q6HPO ASIA Administration Protocol Lisinopril 40 mg 01/27/19 10:00 Prinivil PO DAILY ASIA Melatonin 5 mg 01/24/19 02:29 01/25/19 22:02 Melatonin PO 5 mg HS PRN Administration INSOMNIA Montelukast Sodium 10 mg 01/25/19 22:00 01/25/19 22:02 Singulair - PO 10 mg HS ASIA Administration Non-Formulary Medication 1 drop 01/25/19 22:00 Ketotifen Fumarate [Ketotifen Fumarate] OP BID ASIA Pantoprazole Sodium 40 mg 01/22/19 10:00 01/26/19 09:39 Protonix Iv IVPUSH 40 mg DAILY [facility] Administration Quetiapine Fumarate 50 mg 01/25/19 22:00 01/25/19 22:03 Seroquel - PO 50 mg HS ASIA Administration Rosuvastatin Calcium 10 mg 01/26/19 14:30 01/26/19 15:32 Crestor - PO 10 mg DAILY [facility]IA Administration Tiotropium [place] 2 puff 01/22/19 10:00 01/26/19 09:40 Spiriva Respimat IH 2 puff DAILY [facility]IA Administration ASSESSMENT/PLAN: 68 y/o M, PMH of asthma, type 2 DM, HTN, and HLD. Presented to the ER with worsening diffuse abd pain for 5 days. Pain: RLQ, now diffuse, gradual onset, 3 weeks, 9/10, squeezing pain, relieved by lying flat Associated with multiple episodes of diarrhea, nausea and NBNB vomiting. Was unable to contact sister Chaparrita Hernández at to discuss patient 's living situation to determine whether he would receive adequate assistance during his post-op recovery. Will try to contact her again tomorrow # Small bowl obstruction due to cecal mass, 5th day post-op - Pt stable, will consider D/C tomorrow after confirming wound care with surgery - NGT removed - Surgery: terminal ileum to hepatic flexure/appendix/cecum/portion of right colon resected and sent for histopath, some bowel content spillage - IV Zosyn stopped as per ID, 5 days completed # Asthma - Spiriva, Ventolin, Symbicort, Singulair - Pulmo: Inhaled bronchodilators, incentive spirometery, outpatient PFTs, smoking cessation #Type 2 DM - Novolog SS - Holding home meds: metformin 1000mg, Levemir 80units #HTN - Norvasc 10mg, lisinopril 40mg, HCTZ 25mg resumed # Hyperlipidemia - Crestor 10mg resumed #Hx of psych - Resumed Seroquel 50mg, Citalopram 20mg, holding Zolpidem 10mg #FEN -tolerated clear liquid diet, now on diabetic, low salt diet-3 soft BM overnight as per night nurse #DVT ppx - Hold ASA, AC - Lovenox 40mg #Dispo -Monitor Visit type - Emergency Visit Emergency Visit: Yes ED Registration Date: 01/20/19 Care time: The patient presented to the Emergency Department on the above date and was hospitalized for further evaluation of their emergent condition. - New Patient This patient is new to me today: No - Critical Care Critical Care patient: No - Discharge Referral Referred to [facility] Med [facility].C[facility] No ATTENDING PHYSICIAN STATEMENT I saw and evaluated the patient. I reviewed the resident's note and discussed the case with the resident. I agree with the resident's findings and plan as documented. SUBJECTIVE: OBJECTIVE: ASSESSMENT AND PLAN:
[2019-01-26] MEDS ORDERED: QUEtiapine FUMARATE 25 MG TABLET (FP) ONE (20:37)
[2019-01-26] MEDS: QUEtiapine FUMARATE 50 MG TABLET PO SCH (22:19)
[2019-01-26] MEDS: MONTELUKAST NA 10 MG TABLET PO SCH (22:20)
[2019-01-26] MEDS: MELATONIN 5 MG TABLETS PO PRN (22:22)
[2019-01-27] MEDS: INSULIN SLIDING SCALE (NOVOLOG) 1 VIAL SQ SCH ×3 (06:23→11:55)
[2019-01-27] MEDS: ALBUTEROL SO4 0.083% IH SOL 2.5 MG/3 ML VIAL.NEB. NEB SCH ×3 (07:45→16:02)
--- NOTE | 2019-01-27 09:15 | PN ---
Progress Note (short form) - Note Progress Note: Resting in NAD on RA. Denies shortness of breath or chest pain. No acute events overnight. Intake & Output 01/24/19 01/25/19 01/26/19 01/27/19 23:59 23:59 23:59 23:59 Intake Total 1254.5 2194 0 Output Total 2300 850 1200 900 Balance -2300 404.5 994 -900 Weight 171 lb Last Vital Signs Temp Pulse Resp BP Pulse Ox 98.9 F 80 18 150/74 98 01/27/19 06:07 01/27/19 06:07 01/27/19 06:07 01/27/19 06:07 01/26/19 21:00 Active Medications Acetaminophen (Tylenol -) 650 mg PO Q6H PRN PRN Reason: PAIN LEVEL 6-10 Last Admin: 01/26/19 15:33 Dose: 650 mg Albuterol Sulfate (Ventolin 0.083% Nebulizer Soln -) 1 amp NEB RQID [facility] Last Admin: 01/26/19 20:30 Dose: 1 amp Amlodipine Besylate (Norvasc -) 10 mg PO DAILY [facility] Last Admin: 01/26/19 09:39 Dose: 10 mg Aspirin (Ecotrin -) 81 mg PO DAILY [facility] Last Admin: 01/26/19 15:34 Dose: Not Given Budesonide/Formoterol Fumarate (Symbicort 160/4.5mcg -) 2 puff IH BID [facility] Last Admin: 01/26/19 22:20 Dose: 2 puff Citalopram Hydrobromide (Celexa -) 20 mg PO DAILY [facility] Cyanocobalamin (Vitamin B12 -) 1,000 mcg PO DAILY [facility] Last Admin: 01/26/19 15:32 Dose: 1,000 mcg Docusate Sodium (Colace -) 100 mg PO BID [facility] Last Admin: 01/26/19 22:19 Dose: 100 mg Enoxaparin Sodium (Lovenox -) 40 mg SQ DAILY [facility] Last Admin: 01/26/19 09:39 Dose: 40 mg Fluticasone Propionate (Flonase -) 50 spray NS DAILY [facility] Last Admin: 01/26/19 15:33 Dose: 50 spray Hydralazine HCl (Apresoline Injection -) 10 mg IVPB Q8H PRN PRN Reason: elevated Blood pressure Hydrochlorothiazide (Hctz -) 25 mg PO DAILY [facility] Last Admin: 01/26/19 15:32 Dose: 25 mg Insulin Aspart (Novolog Vial Sliding Scale -) 1 vial SQ Q6HPO [facility]; Protocol Last Admin: 01/27/19 06:23 Dose: 2 units Lisinopril (Prinivil) 40 mg PO DAILY [facility] Melatonin (Melatonin) 5 mg PO HS PRN PRN Reason: INSOMNIA Last Admin: 01/26/19 22:22 Dose: 5 mg Montelukast Sodium (Singulair -) 10 mg PO HS [facility] Last Admin: 01/26/19 22:20 Dose: 10 mg Non-Formulary Medication (Ketotifen Fumarate [Ketotifen Fumarate]) 1 drop OP BID [facility] Pantoprazole Sodium (Protonix Iv) 40 mg IVPUSH DAILY [facility] Last Admin: 01/26/19 09:39 Dose: 40 mg Quetiapine Fumarate (Seroquel -) 50 mg PO HS [facility] Last Admin: 01/26/19 22:19 Dose: 50 mg Rosuvastatin Calcium (Crestor -) 10 mg PO DAILY [facility] Last Admin: 01/26/19 15:32 Dose: 10 mg Tiotropium [place] (Spiriva Respimat) 2 puff IH DAILY [facility] Last Admin: 01/26/19 09:40 Dose: 2 puff Gen: NAD at rest Heart: RRR Lung: decreased breath sounds at the bases Abd: soft, (+) BS Ext: no edema Laboratory Results - last 24 hr 01/26/19 01/26/19 01/26/19 11:28 16:30 22:36 POC Glucometer 188 199 176 01/27/19 06:16 POC Glucometer 160 Problem List - Problems (1) SBO (small bowel obstruction) Code(s): K56.609 - UNSP INTESTNL OBST, UNSP TO PARTIAL VERSUS COMPLETE OBST (2) Cecum mass Code(s): K63.89 - OTHER SPECIFIED DISEASES OF INTESTINE (3) Hyperlipidemia Code(s): E78.5 - HYPERLIPIDEMIA, UNSPECIFIED Qualifiers: Hyperlipidemia type: unspecified Qualified Code(s): E78.5 - Hyperlipidemia , unspecified (4) Hypertension Code(s): I10 - ESSENTIAL (PRIMARY) HYPERTENSION Qualifiers: Hypertension type: essential hypertension Qualified Code(s): I10 - Essential (primary) hypertension (5) COPD (chronic obstructive pulmonary disease) Code(s): J44.9 - CHRONIC OBSTRUCTIVE PULMONARY DISEASE, UNSPECIFIED A/P 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 s/p ex-lap/ileocecectomy COPD HTN DM Hyperlipidemia Smoker - continue antibiotics - f/u final pathology - inhaled bronchodilators - O2 to keep Spo2 >90% - pain control - PO per surgery - incentive spirometry - outpt PFTs - smoking cessation - DVT prophylaxis Dr Doss
[2019-01-27] MEDS: PANTOPRAZOLE SODIUM 40 MG VIAL IVPUSH SCH (09:25)
[2019-01-27] MEDS: ASPIRIN COATED 81 MG TABLET.EC PO SCH (09:25)
[2019-01-27] MEDS: amLODIPine BESYLATE 10 MG TABLET (FP) PO SCH (09:25)
[2019-01-27] MEDS: CYANOCOBALAMIN 1,000 MCG TABLET (FP) PO SCH (09:26)
[2019-01-27] MEDS: ROSUVASTATIN CA 10 MG TABLET (FP) PO SCH (09:26)
[2019-01-27] MEDS: DOCUSATE SODIUM 100 MG CAPSULE (FP) PO SCH (09:26)
[2019-01-27] MEDS: FLUTICASONE PROP 0.05% 16 GM NASAL SPRAY NS SCH (09:27)
[2019-01-27] MEDS: TIOTROPIUM BROMIDE 2.5 MCG (SPIRIVA) RESPIMAT INHALER IH SCH (09:27)
[2019-01-27] MEDS: ENOXAPARIN NA (PORCINE) 40 MG/0.4 ML DISP.SYRIN SQ SCH (09:27)
[2019-01-27] MEDS: BUDESONIDE/FORMETEROL FUMARATE 160/4.5 mcg INHALER IH SCH (09:27)
[2019-01-27] MEDS: HYDROCHLOROTHIAZIDE 25 MG TABLET (FP) PO SCH (09:27)
[2019-01-27] MEDS ORDERED: CITALOPRAM HYDROBROMIDE 20 MG TABLET (FP) PO SCH (10:00)
[2019-01-27] MEDS ORDERED: LISINOPRIL 20 MG TABLET (FP) PO SCH (10:00)
--- NOTE | 2019-01-27 12:11 | PATH ---
Surgical Pathology Report Patient Name: NATALEE SAVAGE Med. Rec. #: [id number] /Age/Gender: 1950 (Age: 68) / M Account: [id number] Location: [facility]/SURG Taken: 01/21/2019 Received: 01/22/2019 Reported: 01/27/2019 Physicians: Abiel Salinas M.D. Specimen(s) Received TERMINAL ILEUM, APPENDIX, CECUM AND PORTION OF RIGHT COLON Clinical History Small bowel obstruction secondary to cecal mass Final Diagnosis TERMINAL ILEUM, APPENDIX, CECUM, PORTION OF RIGHT COLON, ILEOCECECTOMY: INVASIVE ADENOCARCINOMA, MODERATELY DIFFERENTIATED, WITH ASSOCIATED ULCERATION. TUBULAR ADENOMAS (2). TUMOR MEASURES 5 X 3.7 CM (GROSS MEASUREMENT). TUMOR LOCATED AT ILEOCECAL VALVE. TUMOR INVADES INTO THE SEROSA. LYMPHOVASCULAR INVASION IDENTIFIED. NO PERINEURAL INVASION IDENTIFIED MESENTERIC SURGICAL MARGIN IS FOCALLY INVOLVED BY INVASIVE ADENOCARCINOMA; PROXIMAL AND DISTAL BOWEL MARGINS ARE NEGATIVE. APPENDIX WITHOUT SIGNIFICANT PATHOLOGIC FINDINGS. FOUR OF ELEVEN LYMPH NODES WITH METASTATIC ADENOCARCINOMA (4/11). METASTATIC TUMOR DEPOSIT MEASURES 1.2 CM IN GREATEST MICROSCOPIC DIMENSION. EXTRANODAL EXTENSION IDENTIFIED. THREE (3) TUMOR DEPOSITS IDENTIFIED. PATHOLOGIC STAGE: pT4a pN2a. SEE INVASIVE SUMMARY BELOW. Comments Colorectal Carcinoma :Surgical Pathology Cancer Case Summary (Based on AJCC TNM 8 th edition) Procedure _X_ Other (specify): Ileocecectomy Tumor Site _X_ Ileocecal valve Tumor Size Greatest dimension (centimeters): 5 x 3.7 cm (gross measurement) Macroscopic Tumor Perforation _X_ Not identified Histologic Type _X_ Adenocarcinoma Histologic Grade _X_ G2: Moderately differentiated Tumor Extension _X_ Tumor invades the visceral peritoneum (including tumor continuous with serosal surface through area of inflammation) Margins Proximal Margin _X_ Uninvolved by invasive carcinoma Distal Margin _X_ Uninvolved by invasive carcinoma Radial or Mesenteric Margin _X_ Involved by invasive carcinoma (tumor present 0-1 mm from margin) Treatment Effect _X_ No known presurgical therapy Lymphovascular Invasion _X_ Present _X_ Small vessel lymphovascular invasion _X_ Large vessel (venous) invasion _X_ Intramural _X_ Extramural Perineural Invasion _X_ Not identified Tumor Deposits _X_ Present Specify number of deposits: 3 Regional Lymph Nodes Lymph Node Examination Number of Lymph Nodes Involved: 4 Number of Lymph Nodes Examined: 11 Pathologic Stage Classification (pTNM, AJCC 8th Edition) rimary Tumor (pT) _X_ pT4a: Tumor invades through the visceral peritoneum (including gross perforation of the bowel through tumor and continuous invasion of tumor through areas of inflammation to the surface of the visceral peritoneum) Regional Lymph Nodes (pN) _X_ pN2a: Four to six regional lymph nodes are positive Comment: Findings discussed with Dr. Salinas. Additional studies for Mismatch repair proteins (MMR) are pending and will be reported as an addendum. Electronically Signed Leanna Cheema M.D. Addendum Reported: 01/27/2019 Addendum Diagnosis Additional sections of pericolonic/intestinal submitted as follows: Blocks 23-46. Leanna Cheema M.D. Addendum Reported: 01/27/2019 Addendum Diagnosis Immunohistochemical stains for MisMatch Repair Protein Analysis performed at [facility] in [place], [place] ([id number]) and interpreted at [facility] show the following: RESULTS: HMLH-1 INTACT NUCLEAR EXPRESSION HMSH-2 INTACT NUCLEAR EXPRESSION HMSH-6 INTACT NUCLEAR EXPRESSION PMS2 INTACT NUCLEAR EXPRESSION INTERPRETATION: No loss of nuclear expression of MMR proteins: low probability of microsatellite instability-high (MSI-H) Leanna Cheema M.D. Gross Description Received in formalin labeled "terminal ileum, appendix, cecum with portion of right colon," is a 9 cm in length portion of terminal ileum with a 7.5 cm in length attached portion of cecum and right colon. The specimen displays 2 stapled mucosal margins and moderate attached pericolonic adipose tissue. There is a 2.5 cm in length vermiform appendix attached to the cecum. The serosa is herring-braxton with a focal stricture. Sectioning reveals a 5.0 x 3.7 cm herring-red, centrally ulcerated, polypoid mass at the ileocecal valve. The mass is 3.5 cm from the distal mucosal margin. The mass is focally 2.0 cm from the mesenteric margin of resection. The mass invades through the muscularis, to the serosa and possibly into the pericolonic adipose tissue. There are 2 smaller mucosal polyps present, averaging 0.4 cm in greatest dimension. The polyps are 1.5 cm the distal to the mass and appear confined to the mucosa. The remaining mucosa is herring with normal folds. Sectioning of the pericolonic adipose tissue reveals multiple lymph nodes. Entire bridgett-colonic/intestinal adipose tissue submitted. Insurance Policy Clerk sections are submitted in 31 cassettes as follows: 1-terminal ileal mucosal margin of resection; 2-distal mucosal margin of resection; 3-shave of mesenteric margin of resection; 4-appendix; 5-10-mass; 11-two small distal mucosal polyps; 12-uninvolved terminal ileum; 13-uninvolved distal right colon; 14-16-one serially sectioned lymph node; 17-18-one trisected lymph node; 19-22-one bisected lymph node each; 23-one whole possible lymph node; 81-28-[id number] pericolonic/intestinal adipose tissue. 01/22/2019 formerly [facility]01/22/2019
[2019-01-27 14:43] VITALS: BP 118/56; PULSE 67; TEMP 98.4
--- NOTE | 2019-01-27 15:22 | PN ---
Teaching Attending Note Name of Resident: Elias Ohara ATTENDING PHYSICIAN STATEMENT I saw and evaluated the patient. I reviewed the resident's note and discussed the case with the resident. I agree with the resident's findings and plan as documented. SUBJECTIVE:Tolerating Po afebrile able to pass flatus and moved bowel OBJECTIVE: Temperature 98.4 F 01/27/19 14:21 Pulse Rate 67 01/27/19 14:21 Respiratory Rate 18 01/27/19 14:21 Blood Pressure 118/56 L 01/27/19 14:21 O2 Sat by Pulse Oximetry (%) 95 01/27/19 09:00 Comfortable not in distress HEENT: Mm moist, no anemia, PERRLA NECK: No JVd No Bruit CHEST: CTA B/L CVS: S1S2 R ABD: s/p surgery day 6th tolerating PO No distention, BS + EXT: No edema, pulses + SYSTEMS QA ANALYST: AOX3 non focal 01/26/19 06:40 01/26/19 06:40 Ceacal mass biopsy; Adenocarcinoma Active Medications Acetaminophen (Tylenol -) 650 mg PO Q6H PRN PRN Reason: PAIN LEVEL 6-10 Last Admin: 01/26/19 15:33 Dose: 650 mg Albuterol Sulfate (Ventolin 0.083% Nebulizer Soln -) 1 amp NEB RQID [facility] Last Admin: 01/27/19 12:02 Dose: Not Given Amlodipine Besylate (Norvasc -) 10 mg PO DAILY [facility] Last Admin: 01/27/19 09:25 Dose: Not Given Aspirin (Ecotrin -) 81 mg PO DAILY [facility] Last Admin: 01/27/19 09:25 Dose: 81 mg Budesonide/Formoterol Fumarate (Symbicort 160/4.5mcg -) 2 puff IH BID [facility] Last Admin: 01/27/19 09:27 Dose: 2 puff Citalopram Hydrobromide (Celexa -) 20 mg PO DAILY [facility] Last Admin: 01/27/19 09:25 Dose: 20 mg Cyanocobalamin (Vitamin B12 -) 1,000 mcg PO DAILY [facility] Last Admin: 01/27/19 09:26 Dose: 1,000 mcg Docusate Sodium (Colace -) 100 mg PO BID [facility] Last Admin: 01/27/19 09:26 Dose: 100 mg Enoxaparin Sodium (Lovenox -) 40 mg SQ DAILY [facility] Last Admin: 01/27/19 09:27 Dose: 40 mg Fluticasone Propionate (Flonase -) 50 spray NS DAILY [facility] Last Admin: 01/27/19 09:27 Dose: 50 spray Hydralazine HCl (Apresoline Injection -) 10 mg IVPB Q8H PRN PRN Reason: elevated Blood pressure Hydrochlorothiazide (Hctz -) 25 mg PO DAILY [facility] Last Admin: 01/27/19 09:27 Dose: Not Given Insulin Aspart (Novolog Vial Sliding Scale -) 1 vial SQ Q6HPO [facility]; Protocol Last Admin: 01/27/19 11:55 Dose: 6 units Lisinopril (Prinivil) 40 mg PO DAILY [facility] Last Admin: 01/27/19 09:27 Dose: Not Given Melatonin (Melatonin) 5 mg PO HS PRN PRN Reason: INSOMNIA Last Admin: 01/26/19 22:22 Dose: 5 mg Montelukast Sodium (Singulair -) 10 mg PO HS [facility] Last Admin: 01/26/19 22:20 Dose: 10 mg Non-Formulary Medication (Ketotifen Fumarate [Ketotifen Fumarate]) 1 drop OP BID [facility] Pantoprazole Sodium (Protonix Iv) 40 mg IVPUSH DAILY [facility] Last Admin: 01/27/19 09:25 Dose: 40 mg Quetiapine Fumarate (Seroquel -) 50 mg PO HS [facility] Last Admin: 01/26/19 22:19 Dose: 50 mg Rosuvastatin Calcium (Crestor -) 10 mg PO DAILY [facility] Last Admin: 01/27/19 09:26 Dose: 10 mg Tiotropium [place] (Spiriva Respimat) 2 puff IH DAILY [facility] Last Admin: 01/27/19 09:27 Dose: 2 puff ASSESSMENT AND PLAN: Problem List - Problems (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 Assessment/Plan: present with Cecal mass biopsy shows adenocarcinma, team informed the patient at present doesn't want imaging foer staging will consider as out patient Code(s): D37.4 - NEOPLASM OF UNCERTAIN BEHAVIOR OF COLON (2) COPD (chronic obstructive pulmonary disease) Assessment/Plan: cont current management patient is asymptomatic Code(s): J44.9 - CHRONIC OBSTRUCTIVE PULMONARY DISEASE, UNSPECIFIED (3) Diabetes mellitus type 2, controlled, without complications Assessment/Plan: Optimize Glycemic control Code(s): E11.9 - TYPE 2 DIABETES MELLITUS WITHOUT COMPLICATIONS Qualifiers: Diabetes mellitus esters and emulsifiers supervisor insulin use: with intermediate use Qualified Code( s): E11.9 - Type 2 diabetes mellitus without complications; Z79.4 - group home ( current) use of insulin (4) Hypertension Assessment/Plan: controlled cont home meds Code(s): I10 - ESSENTIAL (PRIMARY) HYPERTENSION Qualifiers: Hypertension type: essential hypertension Qualified Code(s): I10 - Essential (primary) hypertension (5) Hyperlipidemia Assessment/Plan: Cont statin Code(s): E78.5 - HYPERLIPIDEMIA, UNSPECIFIED Qualifiers: Hyperlipidemia type: unspecified Qualified Code(s): E78.5 - Hyperlipidemia , unspecified (6) Cecum mass Assessment/Plan: Adnocarcinoma needs w/u for staging well F/U surgery, Oncology and PCP will inform family and educated for F/U. Code(s): K63.89 - OTHER SPECIFIED DISEASES OF INTESTINE
[2019-01-27] MEDS: ACETAMINOPHEN 325 MG TABLET (FP) PO PRN (16:03)
--- NOTE | 2019-01-27 16:33 | DS ---
Physical Exam: SUBJECTIVE: Patient seen and examined by the bedside, in no acute distress, AOx3 OBJECTIVE: Vital Signs Period Temp Pulse Resp BP Sys/[place] Pulse Ox Last 24 Hr 97.9 F-99.1 F 67-84 18-18 99-153/54-84 95-98 PHYSICAL EXAM GENERAL: The patient is awake, alert, and fully oriented, in no acute distress. HEAD: Normal with no signs of trauma. EYES: PERRL, extraocular movements intact, sclera anicteric, conjunctiva clear. ENT: Ears normal, nares patent, oropharynx clear without exudates, moist mucous membranes. NECK: Trachea midline, full range of motion, supple. LUNGS: Breath sounds equal, clear to auscultation bilaterally, no wheezes, no crackles, no accessory muscle use. HEART: Regular rate and rhythm, S1, S2 without murmur, rub or gallop. ABDOMEN: Soft, nontender, nondistended, normoactive bowel sounds, no guarding, no rebound, no hepatosplenomegaly, no masses. EXTREMITIES: 2+ pulses, warm, well-perfused, no edema. NEUROLOGICAL: Cranial nerves II through XII grossly intact. Normal speech, gait not observed. PSYCH: Normal mood, normal affect. SKIN: Warm, dry, normal turgor, no rashes or lesions noted. LABS Laboratory Results - last 24 hr 01/26/19 01/27/19 01/27/19 22:36 06:16 11:54 POC Glucometer 176 160 259 HOSPITAL COURSE: Date of Admission:01/20/19 68 y/o M, PMH of asthma, type 2 DM, HTN, and HLD. Presented to the ER with worsening diffuse abd pain for 5 days. Pain: RLQ, now diffuse, gradual onset, 3 weeks, 9/10, squeezing pain, relieved by lying flat Date of Discharge: 01/27/19 # Small bowl obstruction due to cecal mass - Abdominal CT prior to surgery: SBO secondary to a focal soft tissue mass in cecum and ileocecal, RLQ mesenteric lymph nodes enlarged. - Surgery performed the next day, terminal ileum to hepatic flexure/appendix/ cecum/portion of right colon resected and sent for histopath, some bowel content spillage so IV Zosyn started, 5 day course completed. # Asthma - Spiriva, Ventolin, Symbicort, holding Singulair while NPO - Pulmo: Inhaled bronchodilators, incentive spirometery, outpatient PFTs, smoking cessation #Type 2 DM - Novolog SS - Holding home meds: metformin 1000mg, Levemir 80units #HTN - Hydralazine 10mg IVPB Q8 - Cont Norvasc 10mg, recieved one dose lisinopril 40mg, hold HCTZ 25mg # Hyperlipidemia - Holding crestor 10mg #Hx of psych - Cont Seroquel 50mg, Hold Zolpidem 10mg, Citalopram 20mg, #FEN -Clear liquids #DVT ppx -Lovenox 40mg Minutes to complete discharge: 40 Discharge Summary Reason For Visit: SMALL BOWEL OBSTRUCTION Current Active Problems Abdominal pain (Acute) COPD (chronic obstructive pulmonary disease) (Acute) Cecum mass (Acute) Depression (Chronic) Diabetes mellitus type 2, controlled, without complications (Chronic) Hyperlipidemia (Chronic) Hypertension (Chronic) 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 While you were here, we performed a scan of your abdomen (CT Scan), and found a mass in your bowels. Surgery was performed to remove the mass, which has been sent to our pathology department for assessment. After the surgery, you were treated with IV fluids and antibiotics. Postoperative instructions: You had surgery (ileocecectomy) on 01/21/[address] Abiel Salinas of [facility]. Activity: Resume your usual activities gradually, but no heavy exertion or lifting more than 10-15 pounds for 4-6 weeks. Remove dressings 48 hours after surgery, if they are not already off. You may shower daily starting then, just pat the incision areas dry. No bath or swimming until skin incisions have healed. [place] should not need to be recovered with any dressings, unless you have been told otherwise. Eat lightly at first, but advance to your usual diet as tolerated. Medication: - Please resume ALL your home medications - Please take additional medication for pain as described below: Pain: For pain, you may use and alternate Tylenol (acetaminophen) 1-2 pills and/ or ibuprofen 200 mg (1-3 pills) every 6 hours each as needed; this means that you can take one OR the other at 3-hour intervals. If you are prescribed a Tylenol/narcotic combination for severe pain, use it instead of plain Tylenol as needed and switch back when your pain starts decreasing. Do not take more than 4000 mg of acetaminophen in a day. Take medications as prescribed or indicated on the labeling. Follow-up: - Please make an appointment to get a CT Scan of your Chest at the hospital before you -Call Dr. Salinas's office at [phone] to make your postop appointment on the January,. Clinic is held in the [facility] on the first floor of [facility]. -Please make an appointment with Krys Juares, our Oncologist, within 1 week -Please make an appointment with your primary care physician, Dr. Komal Madrid within 1 week. Call the office if you have: * increasing pain not responsive to pain medication * fever of 101F or higher * vomiting * unusual or increasing bleeding or drainage from wounds * increasing redness or swelling at wound sites * inability to urinate Referrals: Abiel Salinas MD [Staff Physician] - Elma Rodríguez MD [Primary Care Provider] - 1 Week Cisco Marcano MD [Staff Physician] - Disposition: HOME - Home Medications Comprehensive Discharge Medication List: Ambulatory Orders Albuterol 0.083% Nebulizer Lissa [Ventolin 0.083% Nebulizer Soln -] 2 puff IH Q6H 01/20/19 Amlodipine Besylate 10 mg PO DAILY 01/20/19 Citalopram Hydrobromide [Citalopram HBr] 20 mg PO DAILY 01/20/19 Cyanocobalamin [Vitamin B12 -] 1,000 mcg PO DAILY 01/20/19 Fluticasone Prop 0.05% Nasal [Flonase -] 50 spray NS DAILY 01/20/19 Fluticasone/Salmeterol [Advair Hfa 230-21 Mcg Inhaler] 2 inh PO BID 01/20/19 Hydrochlorothiazide 25 mg PO DAILY 01/20/19 Insulin Detemir [Levemir Flextouch] 80 unit SQ HS 01/20/19 Lisinopril [Prinivil -] 40 mg PO DAILY 01/20/19 Loratadine [Claritin] 10 mg PO DAILY 01/20/19 Montelukast Sodium [Singulair] 10 mg PO HS 01/20/19 Quetiapine Fumarate [Seroquel -] 50 mg PO HS 01/20/19 Rosuvastatin Calcium [Crestor] 10 mg PO DAILY 01/20/19 Zolpidem Tartrate [Ambien] 10 mg PO HS 01/20/19 Acetaminophen 2 tab PO BID PRN 01/21/19 Aspirin [Aspirin EC] 81 mg PO DAILY 01/21/19 Docusate Sodium [Colace] 100 mg PO BID 01/21/19 Ketotifen Fumarate 1 drop OP BID 01/21/19 Multivit-Min/Iron/Folic Acid/K [Multi-Day Plus Minerals Tablet] 1 tab PO DAILY 01/21/19 Omeprazole Magnesium [Prilosec Otc] 1 tab PO DAILY 01/21/19 Tiotropium [place] [Spiriva] 1 cap IH DAILY 01/21/19 metFORMIN HCL [Metformin HCl] 1,000 mg PO BIDAC 01/21/19 This patient is new to me today: No Emergency Visit: Yes ED Registration Date: 01/20/19 Care time: The patient presented to the Emergency Department on the above date and was hospitalized for further evaluation of their emergent condition. Critical Care patient: No - Discharge Referral Referred to [facility] No ATTENDING PHYSICIAN STATEMENT I saw and evaluated the patient. I reviewed the resident's note and discussed the case with the resident. I agree with the resident's findings and plan as documented. SUBJECTIVE: OBJECTIVE: ASSESSMENT AND PLAN:
== END 2019-01-27 16:58 | disposition home or self-care (01) | DRG 330 ==
LOC: JER 15:02 → JERBED 21:33 → J7W 01-21 00:27
PROVIDERS: ADMIT Internal Medicine; ATTEND Internal Medicine
PROC: 0DBH0ZZ Excision of Cecum, Open Approach (ICD-10-PCS; principal; 2019-01-21 14:00)
PROC: 0DJD0ZZ Inspection of Lower Intestinal Tract, Open Approach (ICD-10-PCS; 2019-01-21 14:00)
DX: C18.0 Malignant neoplasm of cecum (principal); C77.2 Secondary and unspecified malignant neoplasm of intra-abdominal lymph nodes; N17.9 Acute kidney failure, unspecified; J45.909 Unspecified asthma, uncomplicated; E11.9 Type 2 diabetes mellitus without complications; I10 Essential (primary) hypertension; E78.5 Hyperlipidemia, unspecified; F32.9 Major depressive disorder, single episode, unspecified; J44.9 Chronic obstructive pulmonary disease, unspecified; K21.9 Gastro-esophageal reflux disease without esophagitis; E87.6 Hypokalemia; F17.210 Nicotine dependence, cigarettes, uncomplicated
CPT/HCPCS: 36415; 71045-TC-FY; 74019-TC-FY; 74176-TC; 80053; 81003; 82378; 82550; 82553; 82962; 83690; 83735; 84100; 84484; 85025; 85027; 85610; 86850; 86900; 86901; 87086; 88309-TC; 93005; 93010; 94640; 94760; 97116-GP; 97161-GP; 99285-25; J0131; J7030

== ENCOUNTER 2020-12-19 15:31 | Emergency (ER) | payer MEDICARE, OTHER ==
[2020-12-19 15:53] VITALS: TEMP 98; BMI 29.2
[2020-12-19] MEDS ORDERED: diphenhydrAMINE HCL 25 MG CAPSULE (FP) PO ONE ×2 (16:25→17:04)
[2020-12-19] MEDS ORDERED: FAMOTIDINE 20 MG/50 ML IVPB 20 MG/50 ML MG IVPB ONE ×2 (16:25→17:04)
[2020-12-19] MEDS ORDERED: ACETAMINOPHEN 1000 MG/100 ML VIAL (NON FORMULARY) IVPB ONE (16:26)
[2020-12-19 16:56] LABS: BASO % 0.5 % (0-2.0); EOS % 1.7 % (0-4.5); HEMATOCRIT 33.1 % (35.4-49); HEMOGLOBIN 10.8 GM/dL (11.7-16.9); LYMPH % 10.6 % (8-40); MCH 32.1 pg (25.7-33.7); MCHC 32.7 g/dl (32.0-35.9); MEAN CELL VOLUME 98.2 fl (80-96); MEAN PLT VOLUME 8.3 fl (7.5-11.1); MONO % 6.9 % (3.8-10.2); NEUT % 80.3 % (42.8-82.8); PLATELET COUNT 300 10^3/uL (134-434); RBC 3.37 M/mm3 (4.00-5.60); RDW 16.6 % (11.9-15.9); WHITE BLOOD COUNT 8.6 K/mm3 (4.0-10.0)
[2020-12-19] MEDS ORDERED: ACETAMINOPHEN INJECTION 100 ML IVPB ONE (17:04)
[2020-12-19 17:15] LABS: CALCIUM 9.6 mg/dL (8.5-10.1)
[2020-12-19 17:16] LABS: ALBUMIN 3.6 g/dl (3.4-5.0); BLOOD UREA NITROGEN 11.7 mg/dL (7-18)
[2020-12-19 17:19] LABS: CREATININE 0.7 mg/dL (0.55-1.3)
[2020-12-19 17:20] LABS: BILIRUBIN,TOTAL 0.5 mg/dL (0.2-1)
[2020-12-19 17:21] LABS: TOT PROT 6.9 g/dl (6.4-8.2)
[2020-12-19] MEDS ORDERED: methylPREDNISolone NA SUCC 125 MG/2 ML VIAL IVPB ONE (18:01)
[2020-12-19 18:21] VITALS: BP 139/69; PULSE 84
[2020-12-19] MEDS ORDERED: methylPREDNISolone NA SUCC 125 MG/2 ML VIAL ONE (18:40)
== END 2020-12-19 19:53 | disposition home or self-care (01) ==
LOC: JER 15:31
PROC: 3E0333Z Introduction of Anti-inflammatory into Peripheral Vein, Percutaneous Approach (ICD-10-PCS; principal; 2020-12-19)
PROC: 3E033GC Introduction of Other Therapeutic Substance into Peripheral Vein, Percutaneous Approach (ICD-10-PCS; 2020-12-19)
PROC: 3E033GC Introduction of Other Therapeutic Substance into Peripheral Vein, Percutaneous Approach (ICD-10-PCS; 2020-12-19)
DX: T78.3XXA Angioneurotic edema, initial encounter (principal); T78.40XA Allergy, unspecified, initial encounter; C34.91 Malignant neoplasm of unspecified part of right bronchus or lung
CPT/HCPCS: 36415; 71045-TC-FY; 71250-TC; 80053; 85025; 93005; 93010; 96374; 96375; 99285-25; J0131

== ENCOUNTER 2021-01-03 16:16 | Inpatient (IN) | payer MEDICARE, OTHER ==
[2021-01-03] MEDS ORDERED: LACTATED RINGERS SOLUTION 1000 ML INFUS.BAG IV ONE (18:34)
[2021-01-03 19:09] LABS: BASO % 0.3 % (0-2.0); EOS % 2.2 % (0-4.5); HEMATOCRIT 34.1 % (35.4-49); HEMOGLOBIN 10.9 GM/dL (11.7-16.9); LYMPH % 10.3 % (8-40); MCH 30.6 pg (25.7-33.7); MEAN CELL VOLUME 95.7 fl (80-96); MEAN PLT VOLUME 8.3 fl (7.5-11.1); MONO % 7.9 % (3.8-10.2); NEUT % 79.3 % (42.8-82.8); PLATELET COUNT 380 10^3/uL (134-434); RBC 3.56 M/mm3 (4.00-5.60); RDW 17.2 % (11.9-15.9); WHITE BLOOD COUNT 14.4 K/mm3 (4.0-10.0)
[2021-01-03 19:29] LABS: CHLORIDE 103 mmol/L (98-107); SODIUM 140 mmol/L (136-145)
[2021-01-03 19:33] LABS: BLOOD UREA NITROGEN 13.2 mg/dL (7-18); CALCIUM 9.6 mg/dL (8.5-10.1)
[2021-01-03 19:34] LABS: ALBUMIN 3.4 g/dl (3.4-5.0); ANION GAP 7 MMOL/L (8-16); CO2 30 mmol/L (21-32); GLUCOSE,RANDOM 101 mg/dL (74-106)
[2021-01-03 19:35] LABS: LIPASE 120 U/L (73-393)
[2021-01-03 19:36] LABS: SGPT/ALT 28 U/L (13-61)
[2021-01-03 19:37] LABS: CREATININE 0.6 mg/dL (0.55-1.3); SGOT/AST 20 U/L (15-37)
[2021-01-03 19:38] LABS: BILIRUBIN,TOTAL 0.8 mg/dL (0.2-1)
[2021-01-03 19:39] LABS: ALK PHOS 88 U/L (45-117)
[2021-01-04] MEDS: ACETAMINOPHEN 1000 MG/100 ML VIAL (NON FORMULARY) IVPB PRN ×2 (03:49→21:34)
[2021-01-04 05:44] LABS: BASO % 0.4 % (0-2.0); EOS % 1.5 % (0-4.5); HEMATOCRIT 34.5 % (35.4-49); LYMPH % 4.4 % (8-40); MCH 30.7 pg (25.7-33.7); MEAN PLT VOLUME 8.4 fl (7.5-11.1); MONO % 3.6 % (3.8-10.2); NEUT % 90.1 % (42.8-82.8); PLATELET COUNT 334 10^3/uL (134-434); RBC 3.59 M/mm3 (4.00-5.60); RDW 16.5 % (11.9-15.9); WHITE BLOOD COUNT 11.4 K/mm3 (4.0-10.0)
[2021-01-04] MEDS ORDERED: ALBUTEROL SO4 HFA INHALER IH PRN (05:55)
[2021-01-04 06:04] LABS: ALBUMIN 3.7 g/dl (3.4-5.0); CALCIUM 9.1 mg/dL (8.5-10.1); MAGNESIUM 1.8 mg/dL (1.8-2.4)
[2021-01-04 06:05] LABS: BLOOD UREA NITROGEN 12.9 mg/dL (7-18)
[2021-01-04 06:07] LABS: CREATININE 0.7 mg/dL (0.55-1.3)
[2021-01-04 06:08] LABS: IRON SERUM 16 ug/dL (50-175); PHOSPHOROUS 2.5 mg/dL (2.5-4.9); TOT PROT 7.1 g/dl (6.4-8.2); TOTAL IRON BINDING CAPACITY 352 ug/dL (250-450)
[2021-01-04 06:10] LABS: BILIRUBIN,TOTAL 0.6 mg/dL (0.2-1)
[2021-01-04] MEDS: INSULIN SLIDING SCALE (NOVOLOG) 1 VIAL SQ SCH ×3 (07:39→17:56)
[2021-01-04] MEDS ORDERED: SODIUM CHLORIDE 500 ML IV STA (09:07)
[2021-01-04] MEDS: amLODIPine BESYLATE 5 MG TABLET (FP) PO SCH (10:05)
[2021-01-04] MEDS ORDERED: amLODIPine BESYLATE 5 MG TABLET (FP) ONE (10:06)
[2021-01-04] MEDS: HYDROCHLOROTHIAZIDE 25 MG TABLET (FP) PO SCH (10:17)
[2021-01-04 11:24] LABS: PH,URINE 7.5 (5.0-8.0); URINE APPEARANCE Clear; URINE BILIRUBIN Negative (NEGATIVE); URINE COLOR Yellow; URINE GLUCOSE (UA) 3+ (NEGATIVE); URINE KETONE Negative (NEGATIVE); URINE LEUK ESTERASE Negative (NEGATIVE); URINE NITRITE Negative (NEGATIVE); URINE PROTEIN Negative (NEGATIVE)
[2021-01-04 11:35] LABS: COCAINE, UR NEGATIVE (NEGATIVE); METHADONE, UR NEGATIVE (NEGATIVE); OPIATES, URI NEGATIVE (NEGATIVE); PHENCYCLIDINE,URINE NEGATIVE (NEGATIVE); URINE AMPHETAMINES NEGATIVE (NEGATIVE); URINE BARBITURATES NEGATIVE (NEGATIVE); URINE BENZODIAZEPINES NEGATIVE (NEGATIVE)
[2021-01-04 13:01] LABS: INR 1.12 (0.83-1.09); PROTHROMBIN TIME (PATIENT) 13.7 SEC (9.7-13.0)
[2021-01-04] MEDS ORDERED: ENOXAPARIN NA (PORCINE) 40 MG/0.4 ML DISP.SYRIN SQ SCH (15:00)
[2021-01-04] MEDS ORDERED: ENOXAPARIN NA (PORCINE) 40 MG/0.4 ML DISP.SYRIN SQ ONE (16:49)
[2021-01-04] MEDS ORDERED: INSULIN SLIDING SCALE (NOVOLOG) 1 VIAL SQ ONE (17:58)
[2021-01-04] MEDS: risperiDONE 1 MG TABLET PO SCH (21:28)
[2021-01-04] MEDS ORDERED: INSULIN (LEVEMIR) 100 UNITS/ML UNITS SQ SCH (22:00)
[2021-01-04] MEDS ORDERED: QUEtiapine FUMARATE 100 MG TABLET (FP) PO SCH (22:00)
[2021-01-05 00:02] VITALS: BMI 29.5
[2021-01-05] MEDS ORDERED: ACETAMINOPHEN 325 MG TABLET (FP) PO ONE (01:25)
[2021-01-05] MEDS: INSULIN SLIDING SCALE (NOVOLOG) 1 VIAL SQ SCH ×3 (06:06→17:04)
[2021-01-05 08:02] LABS: BASO % 0.5 % (0-2.0); EOS % 4.1 % (0-4.5); HEMATOCRIT 36.9 % (35.4-49); HEMOGLOBIN 11.6 GM/dL (11.7-16.9); LYMPH % 13.1 % (8-40); MCH 30.2 pg (25.7-33.7); MCHC 31.5 g/dl (32.0-35.9); MEAN PLT VOLUME 8.8 fl (7.5-11.1); NEUT % 71.3 % (42.8-82.8); PLATELET COUNT 344 10^3/uL (134-434); RBC 3.85 M/mm3 (4.00-5.60); RDW 16.6 % (11.9-15.9); WHITE BLOOD COUNT 9.9 K/mm3 (4.0-10.0)
[2021-01-05 08:29] LABS: ALBUMIN 3.3 g/dl (3.4-5.0); CALCIUM 9.3 mg/dL (8.5-10.1)
[2021-01-05 08:30] LABS: MAGNESIUM 2.2 mg/dL (1.8-2.4)
[2021-01-05 08:31] LABS: BILIRUBIN,TOTAL 0.5 mg/dL (0.2-1)
[2021-01-05 08:33] LABS: CREATININE 0.6 mg/dL (0.55-1.3); PHOSPHOROUS 2.4 mg/dL (2.5-4.9)
[2021-01-05 08:41] LABS: INR 1.08 (0.83-1.09); PROTHROMBIN TIME (PATIENT) 13.3 SEC (9.7-13.0)
[2021-01-05] MEDS: HYDROCHLOROTHIAZIDE 25 MG TABLET (FP) PO SCH (09:58)
[2021-01-05] MEDS: risperiDONE 1 MG TABLET PO SCH (09:59)
[2021-01-05] MEDS: amLODIPine BESYLATE 5 MG TABLET (FP) PO SCH (09:59)
[2021-01-05] MEDS ORDERED: CITALOPRAM HYDROBROMIDE 20 MG TABLET PO SCH (10:00)
[2021-01-05] MEDS ORDERED: APIXABAN 5 MG TABLET PO SCH (10:00)
[2021-01-05] MEDS ORDERED: LISINOPRIL 20 MG TABLET PO SCH (10:00)
[2021-01-05] MEDS ORDERED: BUDESONIDE/FORMETEROL FUMARATE 160/4.5 mcg INHALER IH SCH (10:00)
[2021-01-05] MEDS ORDERED: PT OWN MED DRAWER 7, Y5N ONE (10:03)
[2021-01-05] MEDS ORDERED: MORPHINE SULFATE 2 MG/ML VIAL IVPUSH PRN (10:16)
[2021-01-05] MEDS ORDERED: traMADol HCL 50 MG TABLET PO ONE (15:45)
[2021-01-05] MEDS ORDERED: MORPHINE SULFATE 2 MG/ML VIAL IVPB PRN (16:43)
[2021-01-05] MEDS ORDERED: oxyCODONE HCL 5 MG TABLET PO PRN (16:44)
[2021-01-05 16:46] VITALS: BP 150/73; PULSE 81; TEMP 98.3
[2021-01-05] MEDS ORDERED: POLYETHYLENE GLYCOL (HEALTHYLAX) 3350 17 GM PACKET PO SCH (17:00)
[2021-01-05] MEDS ORDERED: NAPH,MB-DB/K PH,MBDB POWDER PACKET PO ONE (17:20)
== END 2021-01-05 18:49 | disposition short-term general hospital (02) | DRG 181 ==
LOC: JER 16:16 → JERBED 01-04 00:15 → J4W 01-04 19:08
PROVIDERS: ADMIT Hospitalist; ATTEND Internal Medicine
PROC: 0BBC3ZX Excision of Right Upper Lung Lobe, Percutaneous Approach, Diagnostic (ICD-10-PCS; principal; 2021-01-04)
DX: C34.92 Malignant neoplasm of unspecified part of left bronchus or lung (principal); I87.1 Compression of vein; I82.C11 Acute embolism and thrombosis of right internal jugular vein; I10 Essential (primary) hypertension; E11.9 Type 2 diabetes mellitus without complications; Z85.46 Personal history of malignant neoplasm of prostate; K21.9 Gastro-esophageal reflux disease without esophagitis; R59.1 Generalized enlarged lymph nodes; F41.8 Other specified anxiety disorders; D64.9 Anemia, unspecified; R29.6 Repeated falls; D72.829 Elevated white blood cell count, unspecified; J44.9 Chronic obstructive pulmonary disease, unspecified; R91.8 Other nonspecific abnormal finding of lung field; F25.9 Schizoaffective disorder, unspecified; E78.5 Hyperlipidemia, unspecified; Z87.891 Personal history of nicotine dependence
CPT/HCPCS: 32408; 36415; 70450-TC; 71046-TC-FY; 71275-TC; 80053; 80061; 80307; 81003; 82550; 82607; 82728; 82746; 82962; 83010; 83036; 83540; 83550; 83615; 83690; 83721; 83735; 83880; 84100; 84443; 84484; 85025; 85045; 85610; 85730; 87086; 88305-TC; 88341-TC; 93005; 93010; 93971; 94761; 99285-25; C9803; J0131; J2794; Q9967; U0003; U0005